=== PATIENT | female | born 1950 | race Caucasian/White ===

== ENCOUNTER 2020-10-07 06:40 | Outpatient (REF) | payer MEDICARE, SELFPAY ==
[2020-10-07 11:20] LABS: Hemoglobin 11.5 g/dl (12.0-16.0); Mean Corpuscular HGB Conc 32.9 g/dl (31.0-35.0); Mean Corpuscular Hemoglobin 30.4 pg (27.0-33.0); Mean Corpuscular Volume 92.6 fL (80-98); Mean Platelet Volume 9.3 fL (9.4-12.3); Platelet Count 313 X10*3/uL (160-400); Red Blood Count 3.78 X10*6/uL (4.20-5.50); Red Cell Distribution Width 12.8 % (11.0-16.0)
[2020-10-07 11:48] LABS: Alanine Aminotransferase 18 U/L (0-31); Albumin Level 4.1 g/dL (3.5-5.0); Alkaline Phosphatase 53 U/L (39-117); Anion Gap 9 (12-20); Aspartate Amino Transferase 19 U/L (5-31); Bilirubin Total 0.5 mg/dL (0.0-1.0); Blood Urea Nitrogen 12 mg/dL (9-16); Carbon Dioxide 30 mmol/L (22-29); Chloride 97 mmol/L (96-108); Cholesterol 195 mg/dL; Estimated Glomerular Filt Rate > 60; Glucose Fasting 82 mg/dL (60-99); HDL Cholesterol 87 mg/dL; LDL Cholesterol Calculated 100 mg/dl; Potassium 4.2 mmol/l (3.3-5.1); Sodium 132 mmol/L (135-145); Total Protein 6.3 g/dL (6.5-8.0); Triglycerides 42 mg/dL
[2020-10-07 12:03] LABS: Vitamin D 25-OH Total 39.3 ng/mL (>30)
== END 2020-10-07 06:41 | disposition home or self-care (01) ==
LOC: HO.HMGCLDS 06:40
PROVIDERS: PCP Internal Medicine; Visit Provider Internal Medicine
DX: Z00.00 Encounter for general adult medical examination without abnormal findings (principal); E55.9 Vitamin D deficiency, unspecified; K21.9 Gastro-esophageal reflux disease without esophagitis; K22.70 Barrett's esophagus without dysplasia; M85.80 Other specified disorders of bone density and structure, unspecified site
CPT/HCPCS: 36415; 80053; 80061; 82306; 85027

== ENCOUNTER 2020-10-16 06:48 | Outpatient (REF) | payer MEDICARE, SELFPAY ==
[2020-10-16 11:28] LABS: Anion Gap 10 (12-20); Blood Urea Nitrogen 15 mg/dL (9-16); Calcium 8.5 mg/dL (8.4-10.2); Carbon Dioxide 30 mmol/L (22-29); Chloride 98 mmol/L (96-108); Estimated Glomerular Filt Rate > 60; Glucose Random 76 mg/dL (60-115); Potassium 4.1 mmol/l (3.3-5.1); Sodium 134 mmol/L (135-145)
[2020-10-16 11:53] LABS: TSH reflex Free T4 1.54 mIU/mL (0.32-4.0)
== END 2020-10-16 06:49 | disposition home or self-care (01) ==
LOC: HO.HMGCLDS 06:48
PROVIDERS: PCP Internal Medicine; Visit Provider Internal Medicine
DX: E87.1 Hypo-osmolality and hyponatremia (principal)
CPT/HCPCS: 80048; 84443

== ENCOUNTER 2020-11-23 08:08 | Day surgery (SDC) | payer MEDICARE, SELFPAY ==
[2020-11-11 09:28] VITALS: BMI 20.3
--- NOTE | 2020-11-16 14:02 | HO.ANESPROP2 ---
Documented by User: Nelly Byrne 11/16/20 14:04 HPI - Anesthesia Eval Consult details Narrative: 70yo F for Upper Endoscopy s/p colonoscopy with MAC 04/2020 [facility] Past Medical History Medical History (Updated 11/16/20 @ 14:04 by Nelly Byrne) Andrade's esophagus GERD (gastroesophageal reflux disease) Hx of mitral valve prolapse Hyponatremia Murmur Osteoarthritis Osteopenia Seasonal allergies Surgical History Surgical History History of esophagogastroduodenoscopy (EGD) History of right hip replacement Hx of colonoscopy Social History Social History Alcohol intake: never Smoking Status: Never smoker Advance Directives: No Advance Directives Information Provided: No Advance Directives on File: No Meds Allergies Allergy/AdvReac Type Severity Reaction Status Date / Time No Known Allergies Allergy Verified 11/11/20 09:25 Home Medications Medication Instructions Recorded Confirmed Type Bifidobacterium infantis [Align] 4 mg PO DAILY 11/11/20 11/11/20 History calcium carbonate [Calcium 600] 1,200 mg PO DAILY 11/11/20 11/11/20 History magnesium 250 mg PO DAILY 11/11/20 11/11/20 History ooonsqdeflhd-puuf-cvtsp acid 1 tab PO DAILY 11/11/20 11/11/20 History [Centrum Women] Exam Exam Date and Time: November 16, 2020 1402 Height,Weight and Vital Signs: Height 5 ft 7 in Weight 58.967 kg Pertinent Lab Results Pertinent Lab Results: Laboratory Tests 10/07/20 10/16/20 06:53 06:59 WBC 6.0 Hgb 11.5 L Hct 35.0 L Plt Count 313 Sodium 134 L Potassium 4.1 Chloride 98 Carbon Dioxide 30 H BUN 15 Creatinine 0.71 Assessment and Plan Assessment Anesthesia Assessment: Chart Reviewed Documented by User: Wanda Cortez 11/23/20 08:39 [facility] Past Medical History Medical History (Updated 11/16/20 @ 14:04 by Nelly Byrne) Andrade's esophagus GERD (gastroesophageal reflux disease) Hx of mitral valve prolapse Hyponatremia Murmur Osteoarthritis Osteopenia Seasonal allergies Surgical History Surgical History History of esophagogastroduodenoscopy (EGD) History of right hip replacement Hx of colonoscopy Social History Social History Alcohol intake: never Smoking Status: Never smoker Advance Directives: No Advance Directives Information Provided: No Advance Directives on File: No Meds Allergies Allergy/AdvReac Type Severity Reaction Status Date / Time No Known Allergies Allergy Verified 11/11/20 09:25 Home Medications Medication Instructions Recorded Confirmed Type Bifidobacterium infantis [Align] 4 mg PO DAILY 11/11/20 11/11/20 History calcium carbonate [Calcium 600] 1,200 mg PO DAILY 11/11/20 11/11/20 History magnesium 250 mg PO DAILY 11/11/20 11/11/20 History upygsdjhsgdv-vsmg-enrgb acid 1 tab PO DAILY 11/11/20 11/11/20 History [Centrum Women] Exam Airway Mallampati Class: I TM Dist: >3cm Neck ROM: Full Loose/Missing/Broken Teeth: No Heart: RRR Lungs: CTA Assessment and Plan Assessment Anesthesia Assessment: Anesthesia Plan Discussed and Chart Reviewed Final Anesthetic Review NPO: Yes ASA Class: II Final Preanesthetic Review: Meds/Allgs Chart Reviewed, Consent Obtained/Reviewed and Anes Risks/Benef Reviewed Patient Risk: Low Procedure Risk: Intermediate Anesthetic Plan Anesthetic Plan: MAC: Disposition: Standard PACU
[2020-11-23 08:36] VITALS: BP 136/53; PULSE 65; RESP 16; TEMP 36.6; O2SAT 100; BMI 20.3
--- NOTE | 2020-11-23 08:56 | MHC.SHP ---
Pre-Procedural Eval Section B Chief Complaint: Gerd, HX Tubular Adenoma Relevant Social History: None Present Medications: see Short Stay Collaborative assessment Medical History: Significant History (Andrade's esophagus GERD (gastroesophageal reflux disease) Hx of mitral valve prolapse Hyponatremia Murmur Osteoarthritis Osteopenia Seasonal allergies) History of Previous Operations: Relevant previous surgery/procedure and date(s) (hip replacement) Allergies: Allergies Allergy/AdvReac Type Severity Reaction Status Date / Time No Known Allergies Allergy Verified 11/11/20 09:25 Review of Systems Sugical H&P ROS: Negative: Constitution, Cardiovascular, Respiratory, Neurological, Psychiatric, Hem-Onc, Allergic/Immunologic, Gastrointestinal, Genitourinary, Musculoskeletal, Integumentary, Endocrine and Eyes/Ears/Nose/Throat Exam Surgical H&P Exam: Normal: HEENT, Normal: Heart, Normal: Lungs, Normal: Extremities, Normal: Abdomen, Normal: Skin and Normal: Neurological Plan Diagnosis/Plan: Unchanged I have reviewed the history and physical and performed a pertinent physical examination on my patient. No changes have occurred unless specified.
--- NOTE | 2020-11-23 09:51 | P.BOP_ITS ---
Brief Operative Note Date of Service: 11/23/20 Pre-op diagnosis: GERD Post-op diagnosis: same Procedure: seProcedure Description: EGD FLEXIBLE TRANSORAL UPPER GASTROINTESTINAL ENDOSCOPY UPPER ENDOSCOPY Consent: Indications for the procedure and potential complications of bleeding, perforation, reaction to medications and missed diagnosis were discussed with the patient and informed consent was obtained. Instrument: Olympus GIF H 190 J mid size upper endoscope Monitoring: Vital signs and clinical assessment, continuous EKG monitoring, Pulse oximetry, Carbon Dioxide monitoring and blood pressure monitoring were done throughout the procedure. Procedure: The patient was placed in the left lateral decubitis position and pre-procedure medications were administered and a bite block was placed. The endoscope was inserted into the mouth and advanced under direct vision to the third part of duodenum. A careful inspection was made as the upper endoscope was withdrawn including a retroflexed examination of the proximal stomach; Findings and interventions are described below. Findings: Larynx:normal Esophagus: GE junction at 38 cm, diaphragm hiatus at 38 cm, no varices or eso phagitis. Possible short segment barretts, bx taken Stomach: Normal mucosa. Grade 2 flap valve on retroflexed examination of the cardia. Duodenum: Normal bulb and descending duodenum, Intervention: Biopsies as noted above Impression/Findings: possible barretts, no esophagitis seen PLAN: can cut down PPi to OD await path Surgeon: Bry Stuart MD Anesthesia: MAC Estimated blood loss (mL): 0 Condition: stable Disposition: PACU
[2020-11-23 09:57] VITALS: BP 117/50; PULSE 69; RESP 18; TEMP 36.5; O2SAT 100
[2020-11-23 10:12] VITALS: BP 127/58; PULSE 60; RESP 18; TEMP 36.5; O2SAT 99
--- NOTE | 2020-11-23 10:40 | HO.POSTANES ---
Post Anesthesia Evaluation Post Anesthesia Evaluation Vital Signs: Vital Signs Temp Pulse Resp BP Pulse Ox 11/23/20 10:12 97.7 F 60 18 127/58 L 99 11/23/20 09:57 97.7 F 69 18 117/50 L 100 11/23/20 08:36 97.9 F 65 16 136/53 L 100 Anesthesia: Monitored Mental Status: Awake Pain Control: Satisfactory Nausea/Vomiting: None Hydration: Adequate Anesthesia-Related Issues: No Anes. Related Issues
== END 2020-11-23 10:36 | disposition home or self-care (01) ==
PROVIDERS: PCP Internal Medicine; Visit Provider Internal Medicine Gastroenterology
PROC: 0DJ08ZZ Inspection of Upper Intestinal Tract, Via Natural or Artificial Opening Endoscopic (ICD-10-PCS; CPT 43235; principal; 2020-11-23 09:20)
DX: K21.9 Gastro-esophageal reflux disease without esophagitis (principal); K44.9 Diaphragmatic hernia without obstruction or gangrene; Z87.19 Personal history of other diseases of the digestive system; Z96.641 Presence of right artificial hip joint; Z79.899 Other long term (current) drug therapy
CPT/HCPCS: 43239; 88305

== ENCOUNTER 2020-12-24 08:45 | Outpatient (REF) | payer MEDICARE, SELFPAY ==
[2020-12-24 11:51] LABS: Anion Gap 13 (12-20); Blood Urea Nitrogen 14 mg/dL (9-16); Calcium 8.7 mg/dL (8.4-10.2); Carbon Dioxide 27 mmol/L (22-29); Chloride 97 mmol/L (96-108); Estimated Glomerular Filt Rate > 60; Glucose Random 72 mg/dL (60-115); Magnesium 2.1 mg/dL (1.6-2.6); Potassium 4.1 mmol/L (3.3-5.1); Sodium 133 mmol/L (135-145)
[2020-12-24 12:18] LABS: Vitamin B12 566 pg/mL (200-900)
== END 2020-12-24 08:46 | disposition home or self-care (01) ==
LOC: HO.HMGCLDS 08:45
PROVIDERS: PCP Internal Medicine; Visit Provider Internal Medicine
DX: E87.1 Hypo-osmolality and hyponatremia (principal); R25.1 Tremor, unspecified
CPT/HCPCS: 36415; 80048; 82607; 82746; 83735; 84443

== ENCOUNTER 2021-01-06 10:47 | Outpatient (REF) | payer MEDICARE, SELFPAY ==
[2021-01-06 14:41] LABS: Anion Gap 10 (12-20); Blood Urea Nitrogen 16 mg/dL (9-16); Calcium 8.8 mg/dL (8.4-10.2); Carbon Dioxide 29 mmol/L (22-29); Chloride 98 mmol/L (96-108); Estimated Glomerular Filt Rate > 60; Glucose Random 77 mg/dL (60-115); Potassium 4.4 mmol/L (3.3-5.1); Sodium 133 mmol/L (135-145)
== END 2021-01-06 10:48 | disposition home or self-care (01) ==
LOC: HO.HMGCLDS 10:47
PROVIDERS: PCP Internal Medicine; Visit Provider Internal Medicine
DX: E87.1 Hypo-osmolality and hyponatremia (principal)
CPT/HCPCS: 36415; 80048

== ENCOUNTER 2021-01-13 09:11 | Outpatient (REF) | payer MEDICARE, SELFPAY ==
--- NOTE | ~2021-01-13 | MM_ITS ---
EXAMINATION: MM SCREENING DIGITAL BREAST TOMOSYNTHESIS, BILATERAL CLINICAL INFORMATION: Screening. Asymptomatic. Prior benign left breast surgery 2001 and 1997. The lifetime risk of breast cancer based on the Tyrer-Cuzick Model is 6%. COMPARISON: Mammography: 01/07/2020, outside mammography 01/04/2019 ([place], [place]) and 10/30/2017 ([place], [place]). TECHNIQUE: Digital breast tomosynthesis is performed in both the craniocaudal and mediolateral oblique views along with computer-aided detection (CAD). Synthesized 2D images are generated from the tomosynthesis. FINDINGS: There are scattered areas of fibroglandular density (ACR BI-RADS breast composition Category b). Parenchymal pattern is similar to prior studies. The left breast has biopsy clip marker upper outer quadrant with some stable regional punctate calcifications. There is some subtle scarring anterior 12:00 left breast, scar marker present upper left breast on outside mammography 2017. There is stable to decreased nodularity central right breast. Neither breast shows interval mass or architectural abnormality or abnormal calcifications. The axilla and skin contours are unremarkable. No significant changes. MM/MM tomosynthesis screening BI IMPRESSION: No significant changes from prior studies. ASSESSMENT: BI-RADS 2: Benign RECOMMENDATION: Routine annual mammography screening. This patient's information was entered into a reminder system with a target due date for their next mammogram.
== END 2021-01-13 09:12 | disposition home or self-care (01) ==
LOC: HO.MAMMO 09:11
PROVIDERS: PCP Internal Medicine; Visit Provider Internal Medicine
DX: Z12.31 Encounter for screening mammogram for malignant neoplasm of breast (principal)
CPT/HCPCS: 77063; 77067

== ENCOUNTER → 2021-01-18 10:14 | Outpatient (BNVA) | payer MEDICARE, SELFPAY | PROVIDERS: PCP Internal Medicine; Visit Provider Internal Medicine Gastroenterology | DX: Z13.89 Encounter for screening for other disorder (principal) | CPT/HCPCS: Q3014 ==

== ENCOUNTER 2021-01-19 07:25 | Outpatient (REF) | payer MEDICARE, SELFPAY ==
[2021-01-19 11:18] LABS: MANUAL DIFF FLAG NO
[2021-01-19 11:40] LABS: Basophils Absolute Auto 0.1 X10*3/uL (0.0-0.2); Basophils Percent Auto 0.8 % (0-2); Eosinophils Absolute Auto 0.1 X10*3/uL (0.0-0.4); Eosinophils Percent Auto 2.3 % (0-4); Hematocrit 38.2 % (37-47); Hemoglobin 12.3 g/dl (12.0-16.0); Imm Gran Abs Auto 0.02 X10*3/uL (0.00-0.03); Imm Gran Pct Auto 0.3 % (0.0-0.4); Lymphocytes Absolute Auto 1.8 X10*3/uL (1.2-4.9); Lymphocytes Percent Auto 29.6 % (20-40); Mean Corpuscular HGB Conc 32.2 g/dl (31.0-35.0); Mean Corpuscular Hemoglobin 30.2 pg (27.0-33.0); Mean Corpuscular Volume 93.9 fL (80-98); Mean Platelet Volume 9.4 fL (9.4-12.3); Monocytes Absolute Auto 0.6 X10*3/uL (0.1-1.2); Monocytes Percent Auto 9.2 % (2-11); Neutrophils Absolute Auto 3.6 X10*3/uL (2.0-8.3); Neutrophils Percent Auto 57.8 % (45-73); Platelet Count 302 X10*3/uL (160-400); Red Blood Count 4.07 X10*6/uL (4.20-5.50); Red Cell Distribution Width 12.5 % (11.0-16.0); White Blood Count 6.2 X10*3/uL (4.8-10.8)
[2021-01-19 12:10] LABS: Ferritin 23 ng/mL (10-250)
[2021-01-19 12:30] LABS: Folate 14.1 ng/mL (> or = 4.0); Vitamin B12 571 pg/mL (200-900)
== END 2021-01-19 07:26 | disposition home or self-care (01) ==
LOC: HO.HMGCLDS 07:25
PROVIDERS: PCP Internal Medicine; Visit Provider Internal Medicine Gastroenterology
DX: D64.9 Anemia, unspecified (principal)
CPT/HCPCS: 36415; 82607; 82728; 82746; 85025

== ENCOUNTER 2021-01-25 13:13 | Outpatient (REF) | payer MEDICARE, SELFPAY ==
--- NOTE | ~2021-01-25 | XR_ITS ---
EXAMINATION: XR HAND, LEFT XR HAND, RIGHT CLINICAL INFORMATION: Pain. COMPARISON: None TECHNIQUE: 3 views of each hand FINDINGS: Left hand: No fracture or dislocation. There is joint space narrowing at the first interphalangeal joint with osteophyte formation. Additional narrowing at the second, third, and fourth distal interphalangeal joints with osteophyte formation. Small osteophytes at the third digit proximal interphalangeal joint. Soft tissue calcifications are present adjacent to the distal aspect of the third digit proximal phalanx and first digit proximal phalanx. Degenerative change of the first carpal metacarpal joint with narrowing, sclerosis, and osteophyte formation. Fragmented appearance of the third digit distal phalanx tuft. No osseous erosions. Right hand: No fracture or dislocation. Narrowing with osteophyte formation at the second and third digit distal interphalangeal joints. Additional osteophytes throughout the remaining interphalangeal joints. There is severe arthritic change at the first carpometacarpal joint with narrowing, sclerosis, and prominent osteophytes. No osseous erosions. The soft tissues are unremarkable. XR/XR hand RT min 3V IMPRESSION: Advanced arthritic changes in both hands as detailed above.
--- NOTE | ~2021-01-25 | XR_ITS ---
EXAMINATION: XR HAND, LEFT XR HAND, RIGHT CLINICAL INFORMATION: Pain. COMPARISON: None TECHNIQUE: 3 views of each hand FINDINGS: Left hand: No fracture or dislocation. There is joint space narrowing at the first interphalangeal joint with osteophyte formation. Additional narrowing at the second, third, and fourth distal interphalangeal joints with osteophyte formation. Small osteophytes at the third digit proximal interphalangeal joint. Soft tissue calcifications are present adjacent to the distal aspect of the third digit proximal phalanx and first digit proximal phalanx. Degenerative change of the first carpal metacarpal joint with narrowing, sclerosis, and osteophyte formation. Fragmented appearance of the third digit distal phalanx tuft. No osseous erosions. Right hand: No fracture or dislocation. Narrowing with osteophyte formation at the second and third digit distal interphalangeal joints. Additional osteophytes throughout the remaining interphalangeal joints. There is severe arthritic change at the first carpometacarpal joint with narrowing, sclerosis, and prominent osteophytes. No osseous erosions. The soft tissues are unremarkable. XR/XR hand LT min 3V IMPRESSION: Advanced arthritic changes in both hands as detailed above.
== END 2021-01-25 13:14 | disposition home or self-care (01) ==
LOC: HO.HOSX 13:13
PROVIDERS: PCP Internal Medicine; Visit Provider Orthopaedic Surgery
DX: M18.0 Bilateral primary osteoarthritis of first carpometacarpal joints (principal)
CPT/HCPCS: 20600; 73130; 99202; J1020

== ENCOUNTER 2021-02-22 08:52 | Outpatient (REF) | payer MEDICARE, SELFPAY ==
--- NOTE | ~2021-02-22 | XR_ITS ---
EXAMINATION: XR KNEE, RIGHT CLINICAL INFORMATION: Right knee pain. COMPARISON: None TECHNIQUE: Four views of the right knee. FINDINGS: Mild lateral compartment joint space narrowing. Tricompartmental marginal osteophytes. No osseous erosion. No fracture or dislocation. No abnormal soft tissue calcification. Trace joint effusion. XR/XR knee RT 4V IMPRESSION: [id number]-[id number] tricompartmental osteoarthritis and trace joint effusion.
== END 2021-02-22 08:53 | disposition home or self-care (01) ==
LOC: HO.HMGCX 08:52
PROVIDERS: Visit Provider Hospitalist
DX: M25.561 Pain in right knee (principal)
CPT/HCPCS: 73564

== ENCOUNTER 2021-03-01 08:10 | Outpatient (REF) | payer MEDICARE, SELFPAY ==
--- NOTE | ~2021-03-01 | XR_ITS ---
EXAMINATION: AP BILATERAL KNEE AND RIGHT KNEE 2 VIEWS. CLINICAL INFORMATION: Pain. COMPARISON: None TECHNIQUE: AP bilateral knee and right knee 2 views. FINDINGS: AP BILATERAL KNEE: There is mild reduction in medial and lateral compartment joint space both knees with periapical spurring lateral compartment both knees. There is general valgus deformity of both knees. RIGHT KNEE: There is loss of patellofemoral compartment joint space with no bony erosive changes or loose bodies. No abnormal joint effusion seen. The soft tissues are normal. XR/XR knee RT 2V IMPRESSION: Mild degenerative changes medial and lateral compartment both knees with periarticular spurring in the lateral compartment. No visible acute fracture, dislocation or lytic process seen.
--- NOTE | ~2021-03-01 | XR_ITS ---
EXAMINATION: AP BILATERAL KNEE AND RIGHT KNEE 2 VIEWS. CLINICAL INFORMATION: Pain. COMPARISON: None TECHNIQUE: AP bilateral knee and right knee 2 views. FINDINGS: AP BILATERAL KNEE: There is mild reduction in medial and lateral compartment joint space both knees with periapical spurring lateral compartment both knees. There is general valgus deformity of both knees. RIGHT KNEE: There is loss of patellofemoral compartment joint space with no bony erosive changes or loose bodies. No abnormal joint effusion seen. The soft tissues are normal. XR/XR knee standing BI IMPRESSION: Mild degenerative changes medial and lateral compartment both knees with periarticular spurring in the lateral compartment. No visible acute fracture, dislocation or lytic process seen.
== END 2021-03-01 08:11 | disposition home or self-care (01) ==
LOC: HO.HOSX 08:10
PROVIDERS: Visit Provider Orthopaedic Surgery
DX: M17.11 Unilateral primary osteoarthritis, right knee (principal)
CPT/HCPCS: 20610; 73560; 73565; 99202

== ENCOUNTER 2021-05-18 07:52 | Outpatient (REF) | payer MEDICARE, SELFPAY ==
[2021-05-18 09:17] LABS: MANUAL DIFF FLAG NO
[2021-05-18 09:23] LABS: Basophils Absolute Auto 0.1 X10*3/uL (0.0-0.2); Basophils Percent Auto 1.2 % (0-2); Eosinophils Absolute Auto 0.1 X10*3/uL (0.0-0.4); Eosinophils Percent Auto 1.9 % (0-4); Hematocrit 34.9 % (37-47); Hemoglobin 11.4 g/dl (12.0-16.0); Imm Gran Abs Auto 0.02 X10*3/uL (0.00-0.03); Imm Gran Pct Auto 0.4 % (0.0-0.4); Lymphocytes Absolute Auto 1.6 X10*3/uL (1.2-4.9); Mean Corpuscular HGB Conc 32.7 g/dl (31.0-35.0); Mean Corpuscular Hemoglobin 29.8 pg (27.0-33.0); Mean Corpuscular Volume 91.4 fL (80-98); Monocytes Absolute Auto 0.6 X10*3/uL (0.1-1.2); Monocytes Percent Auto 12.1 % (2-11); Neutrophils Absolute Auto 2.8 X10*3/uL (2.0-8.3); Neutrophils Percent Auto 54.4 % (45-73); Platelet Count 250 X10*3/uL (160-400); Red Blood Count 3.82 X10*6/uL (4.20-5.50); Red Cell Distribution Width 12.7 % (11.0-16.0); White Blood Count 5.2 X10*3/uL (4.8-10.8)
[2021-05-18 09:48] LABS: Alanine Aminotransferase 16 U/L (0-31); Albumin Level 4.2 g/dL (3.5-5.0); Alkaline Phosphatase 57 U/L (39-117); Anion Gap 12 (12-20); Aspartate Amino Transferase 19 U/L (5-31); Bilirubin Total 0.3 mg/dL (0.0-1.0); Blood Urea Nitrogen 13 mg/dL (9-16); C Reactive Protein 0.02 mg/dL (< or = 0.50); Calcium 9.5 mg/dL (8.4-10.2); Carbon Dioxide 28 mmol/L (22-29); Chloride 102 mmol/L (96-108); Estimated Glomerular Filt Rate > 60; Glucose Random 72 mg/dL (60-115); Potassium 4.8 mmol/L (3.3-5.1); Sodium 137 mmol/L (135-145); Total Protein 6.3 g/dL (6.5-8.0)
[2021-05-18 09:59] LABS: Rheumatoid Factor < 15.0 IU/mL (<15.0)
[2021-05-18 10:30] LABS: Erythrocyte Sedimentation Rate 6 MM/HR (0-20)
[2021-05-19 10:23] LABS: Iron 109 mcg/dL (30-160); Percent Iron Saturation 27 % (15-50); Total Iron Binding Capacity 406 mcg/dL (228-428); Unsaturated Iron Binding 297 ug/dL
[2021-05-19 12:27] LABS: Antibody to SS-A Antigen <1.0 NEG AI (<1.0 NEG); Antibody to SS-B Antigen <1.0 NEG AI (<1.0 NEG)
[2021-05-19 14:02] LABS: Anti Nuclear Antibody Screen NEGATIVE (NEGATIVE)
[2021-05-20 22:57] LABS: Cyclic Citrullinated Peptide <16 UNITS
== END 2021-05-18 07:53 | disposition home or self-care (01) ==
LOC: HO.LAB 07:52
PROVIDERS: PCP Internal Medicine; Visit Provider Student in an Organized Health Care Education/Training Program
DX: D64.9 Anemia, unspecified (principal); M19.041 Primary osteoarthritis, right hand; M19.042 Primary osteoarthritis, left hand
CPT/HCPCS: 36415; 80053; 83540; 85025; 85652; 86038; 86039; 86140; 86200; 86235; 86431; 99202

== ENCOUNTER → 2021-06-01 10:12 | Outpatient (BNVA) | payer MEDICARE, SELFPAY | PROVIDERS: PCP Internal Medicine; Referring Provider Internal Medicine; Visit Provider Internal Medicine Gastroenterology | DX: K21.9 Gastro-esophageal reflux disease without esophagitis (principal); D64.9 Anemia, unspecified | CPT/HCPCS: 99212 ==

== ENCOUNTER 2021-06-08 | Outpatient (REF) | payer SELFPAY | END 2021-06-08 00:01 | disposition home or self-care (01) | LOC: HO.HAP | PROVIDERS: Visit Provider Internal Medicine | DX: Z46.1 Encounter for fitting and adjustment of hearing aid (principal); H91.90 Unspecified hearing loss, unspecified ear | CPT/HCPCS: V5011 ==

== ENCOUNTER → 2021-06-08 10:10 | Outpatient (BNVA) | payer MEDICARE, SELFPAY | PROVIDERS: PCP Internal Medicine; Visit Provider Student in an Organized Health Care Education/Training Program | DX: M19.049 Primary osteoarthritis, unspecified hand (principal) | CPT/HCPCS: 99212 ==

== ENCOUNTER 2021-06-08 12:54 | Outpatient (REF) | payer MEDICARE, SELFPAY ==
--- NOTE | 2021-06-08 13:48 | MHC.AU.ANH ---
Adult Audiological Evaluation Date of Visit: 06/08/21 Reason for Appointment: Audiological evaluation to monitor the status of Ms. Gómez's hearing loss. She reports a longstanding history of bilateral hearing loss and notes that she started using hearing aids in 2004. She feels that her hearing is gradually getting worse. Previous Hearing Test Results: Previous followed at [facility] in [place], [place]. Records not available to be reviewed today. 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 Medical History: Medical History: Heart Problems, Measles, Mumps Medical History: Heart valve prolapse, total right hip replacement 10/2018, ACL repair 1995, cyst and bone spur removal from left middle finger 1999, release trigger finger right hand 2014 Allergies: Voltaren gel Medication List: Pantoprazole 40 mg, Centrum women's silver 50, Total calcium 1500 mg, Magnesium 250 mg, Align probiotic, Thera tears eye nutrition capsules 1200 mg omega-3, simethicone 125 mg PRN Hearing Instrument History- 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[employer] Model: Nera 2 Pro FS ITE Serial Number: [id number] Battery Size: 13 Repair Warranty: 02/01/2019 Loss and Damage Warranty: 02/01/2019 Dispensed By: [place], [place] Date of Fitting: Purchase date per [employer]: 12/23/2016 Hearing Instrument History- Left Ear: 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[employer] Model: Nera 2 Pro FS ITE Serial Number: [id number] Battery Size: Warranty: 02/01/2019 Loss and Damage Warranty: 02/01/2019 Dispensed By: [place], [place] Date of Fitting: Purchase date per [employer]: 12/23/2016 Otoscopy: Right Ear: Unremarkable Left Ear: Unremarkable Tympanometry: Tympanometry performed due to: To assess integrity of the middle ear system Right Ear: Normal Middle Ear System (Type A) Left Ear: Normal Middle Ear System (Type A) Hearing Evaluation: Transducer(s) Used: Insert Earphones, Bone Conduction Method: Conventional Audiometry Stimuli Used: Pure Tones Right Ear: Description of Hearing: Normal hearing from 250-500 Hz, sloping to a mild to severe sensorineural hearing loss from 750-8000 Hz. Left Ear: Description of Hearing: Normal hearing from 250-500 Hz, sloping to a mild to severe sensorineural hearing loss from 750-8000 Hz. Speech Recognition Threshold (SRT): Method Used: Monitored Live Voice Stimuli Used: Spondee Words Right Ear: 30 dBHL Left Ear: 30 dBHL Word Discrimination: Method: Recorded Lists Word Lists Used: NU-6 Right Ear: 84% at 75 dBHL Left Ear: 88% at 75 dBHL Recommendations: Audiological re-evaluation in one year. Patient decided she would like to transfer her hearing aid care to our clinic and paid the transfer of care fee today. Hearing aid programming was saved and hearing aids were reprogrammed to today's audiogram. Hearing aid maintenance was performed. Aids are in good working condition. Diagnosis: Primary Diagnosis: H90.3 Bilateral Sensorineural Hearing Loss Services Performed: Comprehensive Audiological Evaluation (CPT 55634) Tympanometry (CPT 03982) Signature: Provider: Jame Burgess, CCC-A
== END 2021-06-08 12:55 | disposition home or self-care (01) ==
LOC: HO.SH 12:54
PROVIDERS: Visit Provider Internal Medicine
DX: H90.3 Sensorineural hearing loss, bilateral (principal)
CPT/HCPCS: 92557; 92567

== ENCOUNTER 2021-06-29 10:09 | Outpatient (REF) | payer MEDICARE, SELFPAY ==
--- NOTE | ~2021-06-29 | US_ITS ---
EXAMINATION: US EXTRACRANIAL CAROTID DUPLEX, BILATERAL CLINICAL INFORMATION: This is a 71-year-old female with a carotid bruit. COMPARISON: None TECHNIQUE: Real-time ultrasound and Doppler techniques (integrating B-mode 2-D vascular images, Doppler spectral analysis and color-flow Doppler imaging) were utilized to interrogate the extracranial carotid arteries, the vertebral arteries and proximal subclavian arteries bilaterally. The degree of stenosis is determined by criteria similar to NASCET. FINDINGS: Right Side: 1. There is minimal atherosclerotic plaque seen in the bifurcation/proximal ICA region. 2. The common carotid artery PSV proximally is 97 cm/s and distally 97 cm/s. 3. The proximal internal carotid artery velocities are 115 cm/s systolic and 23 cm/s diastolic. 4. The proximal external carotid artery PSV is 87 cm/s. 5. The vertebral artery shows antegrade flow. 6. The subclavian artery waveforms are normal. Left Side: 1. There is minimal atherosclerotic plaque seen in the bifurcation/proximal ICA region. 2. The common carotid artery PSV proximally is 116 cm/s and distally 89 cm/s. 3. The proximal internal carotid artery velocities are 123 cm/s systolic and 26 cm/s diastolic. 4. The proximal external carotid artery PSV is a 5 cm/s. 5. The vertebral artery shows antegrade flow. 6. The subclavian artery waveforms are normal. US/US carotid duplex BI IMPRESSION: 1. RIGHT: Minimal, non-hemodynamically significant stenosis of the proximal right internal carotid artery corresponding to a 0-49% stenosis by velocity criteria. 2. LEFT: Minimal, non-hemodynamically significant stenosis of the proximal left internal carotid artery corresponding to a 0-49% stenosis by velocity criteria.
== END 2021-06-29 10:10 | disposition home or self-care (01) ==
LOC: HO.US 10:09
PROVIDERS: PCP Internal Medicine; Visit Provider Internal Medicine
DX: R09.89 Other specified symptoms and signs involving the circulatory and respiratory systems (principal)
CPT/HCPCS: 93880

== ENCOUNTER 2021-07-15 09:00 | Outpatient (RCR) | payer MEDICARE, SELFPAY | END 2021-08-19 08:48 | disposition home or self-care (01) | LOC: HO.OT 09:00 | PROVIDERS: PCP Internal Medicine; Visit Provider Student in an Organized Health Care Education/Training Program | DX: M19.049 Primary osteoarthritis, unspecified hand (principal) | CPT/HCPCS: 97110; 97166 ==

== ENCOUNTER 2021-09-02 16:33 | Outpatient (REF) | payer MEDICARE, SELFPAY | END 2021-09-02 16:34 | disposition home or self-care (01) | LOC: HO.LNP 16:33 | PROVIDERS: Visit Provider Physician Assistant Medical | DX: Z20.822 Contact with and (suspected) exposure to COVID-19 (principal) | CPT/HCPCS: U0003; U0005 ==

== ENCOUNTER 2021-10-13 08:34 | Outpatient (REF) | payer MEDICARE, SELFPAY ==
--- NOTE | ~2021-10-13 | XR_ITS ---
EXAMINATION: XR HIP, RIGHT CLINICAL INFORMATION: Pain right hip. COMPARISON: None TECHNIQUE: Two views of the right hip. FINDINGS: There is a total right hip prosthesis with prosthetic components in satisfactory alignment. The soft tissues are normal. XR/XR hip RT min 2V IMPRESSION: Total right hip prosthesis in satisfactory alignment. No other bony abnormality seen.
== END 2021-10-13 08:35 | disposition home or self-care (01) ==
LOC: HO.HMGCX 08:34
PROVIDERS: PCP Internal Medicine; Visit Provider Nurse Practitioner Family
DX: M25.551 Pain in right hip (principal); Z96.641 Presence of right artificial hip joint
CPT/HCPCS: 73502

== ENCOUNTER 2021-10-14 19:21 | Emergency (ER) | payer MEDICARE, SELFPAY ==
[2021-10-14 19:22] VITALS: TEMP 36.7; BMI 21.4
[2021-10-14 19:24] VITALS: BP 170/56; PULSE 76; RESP 18; TEMP 36.7; O2SAT 97; BMI 21.1
--- NOTE | 2021-10-14 19:50 | ED.WOUNDLAC ---
HPI - Wound/Laceration General Chief Complaint: Wound/Laceration Stated Complaint: Finger lac Time Seen by Provider: 10/14/21 19:30 Source: patient Mode of arrival: ambulatory Limitations: no limitations History of Present Illness HPI narrative: 71-year-old female presenting to the ER with a 1.5 cm laceration to the tip of her right index finger with she sustained better an hour and a half ago while cleaning the dishes after Thanksgiving dinner. 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 She had immediate bleeding and pain. She attempted a apply direct pressure however she states bleeding persisted. Wound does not involve the nail or nail bed. She is not on any anticoagulation or blood thinners. She is able to fully bend and extend the finger. She has no numbness or tingling. Onset (ago): hour(s) (1.5) Extremity Location: right: hand (Index finger) Place: home Patient tetanus UTD: No (Unsure) Context: accidental Associated symptoms: other (Bleeding) Related Data Home Medications Medication Instructions Recorded Confirmed Bifidobacterium infantis 4 mg 4 mg PO DAILY 11/11/20 06/11/21 capsule (Align) magnesium 250 mg tablet 250 mg PO DAILY 11/11/20 06/11/21 multivitamin-ferrous 1 tab PO DAILY 11/11/20 06/11/21 fumarate-folic acid 18 mg-400 mcg tablet (Centrum Women) flu vacc 2019-(65yr 0.5 ml IM DIRECTED 12/24/20 06/11/21 up)-MF59C(PF) 60 mcg(15 mcgx4)/0.5 mL IM syringe cetirizine 10 mg tablet (Zyrtec) 10 mg PO DAILY PRN 02/22/21 06/11/21 acetaminophen 500 mg tablet 500 mg PO Q6H PRN 05/18/21 06/11/21 (Tylenol Extra Strength) calcium carbonate 600 mg calcium 1,500 mg PO DAILY tab 06/01/21 06/11/21 (1,500 mg) tablet (Calcium) Previous Rx's Medication Instructions Recorded simethicone 125 mg chewable tablet 125 mg PO TID PRN #90 tab 06/01/21 (Gas Relief (simethicone)) miscellaneous medical supply 2 ea MISCELLANEOUS DAILY #2 ea 07/06/21 pantoprazole 40 mg tablet,delayed 40 mg PO DAILY 30 Days #30 tab 09/10/21 release Allergies Allergy/AdvReac Type Severity Reaction Status Date / Time diclofenac [From Voltaren] Allergy Severe Hives Verified 10/14/21 19:22 Review of Systems Review of Systems: Constitutional: No Fever, No Chills Cardiovascular: No Chest Pain, No SOB Gastrointestinal: No Nausea, No Vomiting Musculoskeletal: No joint pain Skin: + Skin Lesions, No rash Neuro: No Weakness, No Numbness Psych: No Anxiety/Panic Heme/Lymph: No Bruising, No Lymphadenopathy PMFSH Past Medical History Medical History Annual physical exam Andrade's esophagus Carotid artery bruit Cerumen impaction GERD (gastroesophageal reflux disease) Hearing loss Hx of mitral valve prolapse Hyponatremia Murmur Osteoarthritis Osteoarthritis, hand Osteopenia Seasonal allergies Skin nodule Tremor Trigger finger of right hand Vitamin D deficiency Surgical History History of esophagogastroduodenoscopy (EGD) History of right hip replacement Hx of colonoscopy Family History Family History Father CHF (congestive heart failure) HTN (hypertension) Mother Rectal bleeding Maternal Grandfather Colon cancer Daughter Mental health disorder Bipolar 1 disorder Brother Substance use disorder Alcoholic Social History Social History Household Members: None Housing: Condominium Alcohol intake: former Patient Tobacco Use Status: Never used Tobacco e-Cigarette/Vaping Use: Never Used Second Hand Smoke Exposure: No Advance Directives: No Advance Directives Information Provided: Yes service: No Current occupational status: employed and retired 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 Oriented X3. No acute distress. HEENT: normal inspection CVS: Normal heart rate and rhythm. Pulses normal. Respiratory: No respiratory distress. Skin: Skin warm and dry. Normal skin color. Normal skin turgor. No rashes. Extremities: Right index finger with a superficial 1.5 cm laceration to the distal tip of the pulp of the finger, does not involve the nail at the nail bed. Active losing that resolved with direct pressure. Normal range of motion and sensation of the finger. Neuro: Oriented X 3. No motor deficit. No sensory deficit. Course Course Course Narrative: 71-year-old female presenting to the ER with a superficial laceration to the right index finger sustained by a kitchen knife just prior to arrival. She cleaned it with alcohol prior to coming in. He is unsure when her last tetanus shot was. Bleeding was controlled with direct pressure. Skin glue was used to close the wound with good effect. Patient counseled on management. She is stable for discharge home. Procedures Laceration Laceration 1: Site: hand (Index finger) Side (If applicable): right Size (cm): 1.5 Description: linear Pre-repair: irrigated extensively and deep structures intact Skin layer closed with: other (Dermabond) Critical Care Time Critical Care Time Critical Care Time: No Discharge Plan Discharge Clinical Impression: Finger laceration Qualifiers: Encounter type: initial encounter Finger: index finger Damage to nail status: without damage Foreign body presence: without foreign body Laterality: right Qualified Code(s): S61.210A - Laceration without foreign body of right index finger without damage to nail, initial encounter Patient Disposition: Home, Self-Care Instructions: Finger Laceration (ED) Additional Instructions: Skin glue was used to close your wound today. This will fall off on its own, usually within 1 week. Do not peel it off. Do not get your finger wet for 24 hours, after this you may briefly wash and then pat dry. If you experience throbbing or pain recommend elevating above the level of your heart and taking a dose of Motrin and Tylenol. If you develop recurrent bleeding or any signs of infection call your doctor come back to emergency room for further evaluation. Prescriptions: No Action miscellaneous medical supply Misc 2 ea miscellaneous DAILY Qty: 2 RF: 0 pantoprazole 40 mg tablet,delayed release (DR/EC) 40 mg PO DAILY 30 Days Qty: 30 RF: 4 magnesium 250 mg Tablet 250 mg PO DAILY RF: 0 Align 4 mg Capsule 4 mg PO DAILY RF: 0 Centrum Women 18-400 mg-mcg Tablet 1 tab PO DAILY RF: 0 calcium carbonate [Calcium 600] 600 mg calcium (1,500 mg) tablet 1,500 mg PO DAILY RF: 0 cetirizine [Zyrtec] 10 mg tablet 10 mg PO DAILY PRNRF: 0 Fluad Quad 2019-(65y up)(PF) 60 mcg (15 mcg x 4)/0.5 mL syringe 0.5 ml IM DIRECTED RF: 0 simethicone [Gas Relief (simethicone)] 125 mg tablet,chewable 125 mg PO TID PRN (Reason: abdominal distention) Qty: 90 RF: 2 acetaminophen [Tylenol Extra Strength] 500 mg tablet 500 mg PO Q6H PRNRF: 0
[2021-10-14] MEDS: Diphth,Pertus(ACell),Tet Adult 0.5 ML SYRINGE IM (20:03)
== END 2021-10-14 19:58 | disposition home or self-care (01) ==
PROVIDERS: Emergency Provider Student in an Organized Health Care Education/Training Program; PCP Internal Medicine
DX: S61.210A Laceration without foreign body of right index finger without damage to nail, initial encounter (principal); S60.511A Abrasion of right hand, initial encounter; M79.644 Pain in right finger(s); W26.0XXA Contact with knife, initial encounter; Y93.9 Activity, unspecified; Y92.410 Unspecified street and highway as the place of occurrence of the external cause; Y99.9 Unspecified external cause status; Z79.899 Other long term (current) drug therapy
CPT/HCPCS: 90471; 90715; 99284

== ENCOUNTER 2021-11-18 08:04 | Outpatient (REF) | payer MEDICARE, SELFPAY ==
--- NOTE | ~2021-11-18 | MM_ITS ---
EXAMINATION: BONE DENSITOMETRY CLINICAL INDICATION: Other specified disorders of bone density and structure. COMPARISON: Baseline BD dated 11/07/2019. TECHNIQUE: Using a [employer] DXA System (software version: 13.1) manufactured by [employer], dual-energy x-ray absorptiometry was performed of the lumbar spine and left hip. The images are of good technical quality. Summary results are attached. FINDINGS: AP SPINE L1-L2 (excluding L3 and L4): The data of L1-L4 has been changed to exclude the L3 and L4 vertebral bodies, because degenerative changes at these levels may cause overestimation of lumbar spine density. Current: BMD 1.038 g/cm2, Z-score 0.8, T-score -1.1, osteopenia, 1.5% decrease from baseline (<5% change is not significant). Baseline: BMD 1.054 g/cm2. LEFT FEMUR, NECK: Current: BMD 0.635 g/cm2, Z-score -1.0, T-score -2.9, osteoporosis. Baseline: BMD 0.665 g/cm2. LEFT FEMUR, TOTAL: Current: BMD 0.630 g/cm2, Z-score -1.3, T-score -3.0, osteoporosis, 3.8% decrease from baseline (<5% change is not significant). Baseline: BMD 0.655 g/cm2. IDENTIFIED RISK FACTORS: Osteoporosis, menopause. HISTORY OF FRACTURE: None listed. MEDICATIONS: Calcium supplements or multivitamin, vitamin D. MM/XR DEXA axial skeleton IMPRESSION: 1. DIAGNOSIS: Osteoporosis based on the lowest T-score value of -3.0 in the total femur applying World Health Organization criteria. 2. 10-YEAR FRACTURE RISK PREDICTION, FRAX: According to the guidelines, FRAX calculation should only be performed on patients in the osteopenia bone density category. 3. Treatment Recommendations: NOF guidelines recommend consideration for treatment in postmenopausal women and men age 50 and older presenting with the following: -A hip or vertebral (clinical or morphometric) fracture. -T-score less than or equal to -2.5 at the femoral neck or spine after appropriate evaluation to exclude secondary causes. -Low bone mass at the hip or spine and a 10-year fracture probability by FRAX of greater than or equal to 3% for hip fracture or greater than or equal to 20% for major osteoporotic fracture based on the [place] adapted WHO algorithm. 4. Other Recommendations: All treatment decisions require clinical judgment and consideration of individual patient factors, including patient preferences, comorbidities, previous drug use, risk factors not captured in the FRAX model (e.g. frailty, falls, vitamin D deficiency, increased bone turnover, interval significant decline in bone density) and possible under or overestimation of fracture risk by FRAX. Additional medical evaluation for secondary cause of low bone mineral density may be appropriate. FUTURE SCAN RECOMMENDATION: People with diagnosed cases of osteoporosis or at high risk for fracture should have regular bone mineral density tests. For patients eligible for Medicare, routine testing is allowed once every 2 years. The testing frequency can be increased to one year for patients who have rapidly progressing disease, those who are receiving or discontinuing medical therapy to restore bone mass, or have additional risk factors.
== END 2021-11-18 08:05 | disposition home or self-care (01) ==
LOC: HO.MAMMO 08:04
PROVIDERS: Visit Provider Internal Medicine
DX: Z13.820 Encounter for screening for osteoporosis (principal); M85.80 Other specified disorders of bone density and structure, unspecified site; Z78.0 Asymptomatic menopausal state; Z79.899 Other long term (current) drug therapy
CPT/HCPCS: 77080

== ENCOUNTER 2021-12-22 06:33 | Outpatient (REF) | payer MEDICARE, SELFPAY ==
[2021-12-22 11:39] LABS: Hematocrit 35.4 % (37.0-47.0); Hemoglobin 11.5 g/dl (12.0-16.0); Mean Corpuscular HGB Conc 32.5 g/dl (31.0-35.0); Mean Corpuscular Hemoglobin 29.8 pg (27.0-33.0); Mean Corpuscular Volume 91.7 fL (80.0-98.0); Mean Platelet Volume 9.5 fL (9.4-12.3); Platelet Count 269 X10*3/uL (160-400); Red Blood Count 3.86 X10*6/uL (4.20-5.50); Red Cell Distribution Width 12.7 % (11.0-16.0); White Blood Count 5.5 X10*3/uL (4.8-10.8)
[2021-12-22 12:20] LABS: Alanine Aminotransferase 17 U/L (0-31); Albumin Level 4.1 g/dL (3.5-5.0); Alkaline Phosphatase 61 U/L (39-117); Anion Gap 10 (12-20); Aspartate Amino Transferase 17 U/L (5-31); Bilirubin Total 0.4 mg/dL (0.0-1.0); Blood Urea Nitrogen 15 mg/dL (9-16); Calcium 9.3 mg/dL (8.4-10.2); Carbon Dioxide 29 mmol/L (22-29); Chloride 101 mmol/L (96-108); Cholesterol 213 mg/dL; Estimated Glomerular Filt Rate > 60; Glucose Fasting 83 mg/dL (60-99); HDL Cholesterol 90 mg/dL; Iron 101 mcg/dL (30-160); LDL Cholesterol Calculated 113 mg/dl; Percent Iron Saturation 24 % (15-50); Potassium 4.4 mmol/L (3.3-5.1); Sodium 136 mmol/L (135-145); Total Iron Binding Capacity 425 mcg/dL (228-428); Total Protein 6.4 g/dL (6.5-8.0); Triglycerides 50 mg/dL; Unsaturated Iron Binding 324 ug/dL
[2021-12-22 12:22] LABS: TSH reflex Free T4 1.15 uIU/mL (0.32-4.0); Vitamin D 25-OH Total 36.2 ng/mL (>30)
== END 2021-12-22 06:34 | disposition home or self-care (01) ==
LOC: HO.HMGCLDS 06:33
PROVIDERS: Visit Provider Internal Medicine
DX: Z00.00 Encounter for general adult medical examination without abnormal findings (principal); D64.9 Anemia, unspecified; E87.1 Hypo-osmolality and hyponatremia; M85.80 Other specified disorders of bone density and structure, unspecified site; E55.9 Vitamin D deficiency, unspecified
CPT/HCPCS: 36415; 80053; 80061; 82306; 83540; 84443; 85027

== ENCOUNTER → 2021-12-31 10:02 | Outpatient (BNVA) | payer MEDICARE, SELFPAY | PROVIDERS: PCP Internal Medicine; Referring Provider Internal Medicine; Visit Provider Internal Medicine Gastroenterology | DX: K21.9 Gastro-esophageal reflux disease without esophagitis (principal); R07.89 Other chest pain; D64.9 Anemia, unspecified | CPT/HCPCS: 99212 ==

== ENCOUNTER 2022-01-18 08:06 | Outpatient (REF) | payer MEDICARE, SELFPAY ==
--- NOTE | ~2022-01-18 | MM_ITS ---
EXAMINATION: MM SCREENING DIGITAL BREAST TOMOSYNTHESIS, BILATERAL CLINICAL INFORMATION: Screening. Asymptomatic. The lifetime risk of breast cancer based on the Tyrer-Cuzick Model is 3%. COMPARISON: Mammography: 01/13/2021, 01/07/2020, 01/04/2019 TECHNIQUE: Digital breast tomosynthesis is performed in both the craniocaudal and mediolateral oblique views along with computer-aided detection (CAD). Synthesized 2D images are generated from the tomosynthesis. FINDINGS: There are scattered areas of fibroglandular density (ACR BI-RADS breast composition Category b). There are no significant masses, abnormal calcifications, or other abnormalities. Parenchymal pattern is similar to prior studies. Scattered nodular densities central anterior right breast are stable. There is no developing density or architectural abnormality. There is a biopsy clip marker again seen left breast posterior upper outer quadrant with stable punctate and round regional calcifications. The axilla and skin contours are unremarkable. No significant changes. MM/MM tomosynthesis screening BI IMPRESSION: No significant changes from prior studies. ASSESSMENT: BI-RADS 2: Benign RECOMMENDATION: Routine annual mammography screening. This patient's information was entered into a reminder system with a target due date for their next mammogram.
== END 2022-01-18 08:07 | disposition home or self-care (01) ==
LOC: HO.MAMMO 08:06
PROVIDERS: PCP Internal Medicine; Visit Provider Internal Medicine
DX: Z12.31 Encounter for screening mammogram for malignant neoplasm of breast (principal)
CPT/HCPCS: 77063; 77067

== ENCOUNTER → 2022-01-20 10:39 | Outpatient (BNVA) | payer MEDICARE, SELFPAY | PROVIDERS: PCP Internal Medicine; Visit Provider Orthopaedic Surgery | DX: Z47.1 Aftercare following joint replacement surgery (principal); Z96.641 Presence of right artificial hip joint | CPT/HCPCS: 99212 ==

== ENCOUNTER → 2022-02-11 07:25 | Outpatient (REF) | payer MEDICARE, SELFPAY ==
--- NOTE | 2022-02-11 07:29 | CA_ITS ---
Transthoracic Echocardiogram Patient (Last, First, Middle): Philomena Gómez, Gender: Female Date of : 1950 Age: 71 Procedure Date: 02/11/2022 Procedure Type: Transthoracic Echocardiogram Location: OP Height: 170.18 cm Weight: 62.14 kg BSA: 1.72 m2 Heart Rate: bpm BP: 118 / 60 mmHg Learning Consultant: VH/OT Referring MD: Idalmis Kyle MD Symptoms: I35.1 - Nonrheumatic aortic (valve) insufficiency Study Quality: Fair ECG Rhythm: Sinus Conclusions: - Normal left ventricular size and systolic function. There is mildly increased left ventricular wall thickness. The visually estimated ejection fraction is between 60-65%. - E/E prime ratio is <8, consistent with normal filling pressures. - Normal right ventricular cavity size and systolic function. - The left atrium is severely dilated. Findings Left Ventricle Normal left ventricular size and systolic function. There is mildly increased left ventricular wall thickness. The visually estimated ejection fraction is between 60-65%. There is no evidence of regional wall motion abnormalities. Diastolic function is indeterminate on the basis of available data. Spectral Doppler is indicative of an impaired relaxation filling pattern. E/E prime ratio is <8, consistent with normal filling pressures. Right Ventricle Normal right ventricular cavity size and systolic function. Atria The left atrium is severely dilated. Aortic Valve There is a normal trileaflet aortic valve. There is mild calcification of the aortic valve. There is mild thickening of the aortic valve. There is no aortic valve stenosis. There is mild aortic valve regurgitation. Mitral Valve The mitral valve appears normal. There is mild mitral valve regurgitation. There is no mitral valve stenosis. Pulmonic Valve The pulmonic valve is likely normal. There is trace pulmonic valve regurgitation. Tricuspid Valve Normal tricuspid valve structure. There is mild septal tricuspid leaflet thickening. There is trace tricuspid valve regurgitation. Normal right atrial pressure. There is no evidence of pulmonary hypertension. Great Vessels All visible segments of the aorta are normal in size. The visualized portions of the pulmonary artery and branches are normal. Venous The inferior vena cava is normal in size and collapses greater than 50% with inspiration. Pericardium/Pleural There is no evidence of pericardial effusion. Prior Study Comparison No prior study available for comparison. Measurements 2D Linear Measurements IVSd: 1.09 0.6-0.9/0.6-1.0 cm LVIDd: 4.41 3.9-5.3/4.2-5.9 cm LVIDd Index: 2.56 2.4-3.2/2.2-3.1 cm/m2 LVIDs: 2.17 2.0-3.6 cm LVPWd: 1.09 0.7-1.1 cm LA Diam: 3.80 2.7-3.8/3.0-4.0 cm LAIDs Index: 2.21 1.5-2.3 cm/m2 LV Mass: 208.44 67-162/88-224 g LV Mass Index: 121.19 43-95/49-115 g/m2 LVOT Diam: 2.30 3.0+(-)1.3 cm Mitral Valve MV Pk E: 0.57 MV PK A: 0.47 MV Decel Time: 149.00 E/A: 1.20 E'Lateral: 7.83 E'Medial: 7.62 E/E' Med: 7.50 E/E' Lat: 7.30 PHT: 44.00 MVA PHT: 5.00 Decel Manati: 3.85 Aortic Valve AoV Pk Yonas: 1.41 AoV Mn Yonas: 1.40 AoV VTI: 0.53 AoV Pk Grad: 8.00 Aov Mn Grad: 9.00 BRENDA Cont.VTI: 2.06 AI Pk Yonas: 3.11 AI Manati: 1.54 LVOT LVOT Pk Yonas: 0.95 LVOT Mn Yonas: 0.58 LVOT VTI: 0.26 LVOT Pk Grad: 4.00 LVOT Mn Grad: 2.00 LVOT Diam: 2.30 LVOT Area: 4.15 Diastolic Function MV Pk E: 0.57 MV Pk A: 0.47 E/A: 1.20 E'Medial: 7.62 E/E' Med: 7.50 E' Laterial: 7.83 E/E' Lat: 7.30 Right Ventricle TAPSE (mm): 20.00 TVS' Yonas: 11.00 Tricuspid Valve TR Pk Yonas: 2.10 TR Pk Grad: 18.00 RA Press: 3.00 RVSP: 21.00 Great Vessels Aorta Sinus of Valsalva: 2.90 2.0-3.5 cm Ao Asc: 2.80 2.1-3.4 cm Pulmonary Valve PV Pk Yonas: 0.79 Peak PV Grad: 2.00 Updated in Other Vendor System with Status of Final Lino Uriostegui MD electronically signed on 02/13/2022 9:03:31 PM with status of Final
== END ==
LOC: HO.CARD 07:25
PROVIDERS: PCP Internal Medicine; Visit Provider Internal Medicine
DX: I35.1 Nonrheumatic aortic (valve) insufficiency (principal)
CPT/HCPCS: 93306

== ENCOUNTER → 2022-06-06 11:30 | Outpatient (BNVA) | payer MEDICARE, SELFPAY | PROVIDERS: PCP Internal Medicine; Visit Provider Internal Medicine Gastroenterology | DX: D64.9 Anemia, unspecified (principal); K21.9 Gastro-esophageal reflux disease without esophagitis; K31.A0 Gastric intestinal metaplasia, unspecified | CPT/HCPCS: 99212 ==

== ENCOUNTER 2022-08-12 09:51 | Outpatient (REF) | payer MEDICARE, SELFPAY | END 2022-08-12 09:52 | disposition home or self-care (01) | LOC: HO.SH 09:51 | PROVIDERS: Visit Provider Internal Medicine | DX: H90.3 Sensorineural hearing loss, bilateral (principal) | CPT/HCPCS: 92557; 92567 ==

== ENCOUNTER 2022-10-06 09:40 | Day surgery (SDC) | payer MEDICARE, SELFPAY ==
--- NOTE | 2022-10-05 13:56 | P.CONAN_ITS ---
Documented by User: Nelly Byrne NP 10/05/22 13:58 HPI - Anesthesia Eval Consult details Narrative: 72yo F for Upper Endoscopy PMFSH Active Problems Active Problems: All Active Problems (Updated 09/29/22 @ 13:58 by Madiha Hernandez RN) Annual physical exam (Acute) Anemia (Acute) Arthritis of carpometacarpal (CMC) joint of left thumb (Acute) Arthritis of carpometacarpal (CMC) joint of right thumb (Acute) Right knee pain (Acute) Acute sinusitis (Acute) Right hip pain (Acute) Status post total replacement of right hip (Acute) Annual physical exam (Acute) Aortic regurgitation (Acute) Osteoporosis (Acute) Cerumen impaction (Acute) Carotid artery bruit (Acute) GERD (gastroesophageal reflux disease) (Acute) Skin nodule (Acute) Vitamin D deficiency (Acute) Hearing loss (Acute) Osteopenia (Acute) Tremor (Acute) Osteoarthritis, hand (Acute) Hyponatremia (Acute) Past Medical History Medical History Aortic regurgitation Andrade's esophagus Carotid artery bruit Cerumen impaction GERD (gastroesophageal reflux disease) Hearing loss Hx of mitral valve prolapse Hyponatremia Murmur Osteoarthritis Osteoarthritis, hand Osteopenia Osteoporosis Seasonal allergies Skin nodule Tremor Trigger finger of right hand Vitamin D deficiency Family History Family History Father CHF (congestive heart failure) HTN (hypertension) Mother Rectal bleeding Maternal Grandfather Colon cancer Daughter Mental health disorder Bipolar 1 disorder Brother Substance use disorder Alcoholic Surgical History Surgical History (Updated 09/29/22 @ 14:42 by Madiha Hernandez RN) History of esophagogastroduodenoscopy (EGD) History of right hip replacement Hx of colonoscopy Social History Social History Household Members: None Housing: Condominium Alcohol intake: former Patient Tobacco Use Status: Never used Tobacco e-Cigarette/Vaping Use: Never Used Second Hand Smoke Exposure: No Are you DNR?: No Advance Directives: No Advance Directives Information Provided: Yes service: No Current occupational status: retired Current occupation: [employer] Current occupational exposures/hazards: No Cognitive needs: No Hearing needs: No Vision needs: No Meds Allergies Allergy/AdvReac Type Severity Reaction Status Date / Time diclofenac [From Voltaren] Allergy Severe Hives Verified 09/29/22 14:46 Home Medications Medication Instructions Recorded Confirmed Last Taken Type Bifidobacterium infantis 4 mg 4 mg PO DAILY 11/11/20 09/29/22 Unknown History capsule (Align) magnesium 250 mg tablet 250 mg PO DAILY 11/11/20 09/29/22 Unknown History multivitamin-ferrous 1 tab PO DAILY 11/11/20 09/29/22 Unknown History fumarate-folic acid 18 mg-400 mcg tablet (Centrum Women) cetirizine 10 mg tablet (Zyrtec) 10 mg PO DAILY PRN Allergy Symptoms 02/22/21 09/29/22 Unknown History acetaminophen 500 mg tablet 500 mg PO Q6H PRN Pain 05/18/21 09/29/22 Unknown History (Tylenol Extra Strength) cholecalciferol (vitamin D3) 50 50 mcg PO DAILY 12/31/21 09/29/22 Unknown History mcg (2,000 unit) capsule calcium carbonate 600 mg calcium 700 mg PO DAILY 06/06/22 09/29/22 Unknown History (1,500 mg) tablet (Calcium) Exam Exam Date and Time: October 05, 2022 1356 Narrative Narrative: ECHO 12/2021 Conclusions: - Normal left ventricular size and systolic function. There is ? mildly increased left ventricular wall thickness.? The visually? estimated ejection fraction is between 60-65%. ? - E/E prime ratio is <8, consistent with normal filling? pressures. ? - Normal right ventricular cavity size and systolic function.? ? - The left atrium is severely dilated. ? carotid duplex BI 2020 IMPRESSION: 1. RIGHT: Minimal, non-hemodynamically significant stenosis of the proximal right internal carotid artery corresponding to a 0-49% stenosis by velocity criteria. ? 2. LEFT: Minimal, non-hemodynamically significant stenosis of the proximal left internal carotid artery corresponding to a 0-49% stenosis by velocity criteria. ? Assessment and Plan Assessment Anesthesia Assessment: Chart Reviewed Documented by User: Wanda Cortez MD 10/06/22 10:27 [facility] Past Medical History Medical History Aortic regurgitation Andrade's esophagus Carotid artery bruit Cerumen impaction GERD (gastroesophageal reflux disease) Hearing loss Hx of mitral valve prolapse Hyponatremia Murmur Osteoarthritis Osteoarthritis, hand Osteopenia Osteoporosis Seasonal allergies Skin nodule Tremor Trigger finger of right hand Vitamin D deficiency Family History Family History Father CHF (congestive heart failure) HTN (hypertension) Mother Rectal bleeding Maternal Grandfather Colon cancer Daughter Mental health disorder Bipolar 1 disorder Brother Substance use disorder Alcoholic Surgical History Surgical History (Updated 09/29/22 @ 14:42 by Madiha Hernandez RN) History of esophagogastroduodenoscopy (EGD) History of right hip replacement Hx of colonoscopy History of Problems with Anesthesia: No Social History Social History Household Members: None Housing: Condominium Alcohol intake: former Patient Tobacco Use Status: Never used Tobacco e-Cigarette/Vaping Use: Never Used Second Hand Smoke Exposure: No Are you DNR?: No Advance Directives: No Advance Directives Information Provided: Yes service: No Current occupational status: 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 Current occupational exposures/hazards: No Cognitive needs: No Hearing needs: No Vision needs: No Meds Allergies Allergy/AdvReac Type Severity Reaction Status Date / Time diclofenac [From Voltaren] Allergy Severe Hives Verified 09/29/22 14:46 Home Medications Medication Instructions Recorded Confirmed Last Taken Type Bifidobacterium infantis 4 mg 4 mg PO DAILY 11/11/20 09/29/22 Unknown History capsule (Align) magnesium 250 mg tablet 250 mg PO DAILY 11/11/20 09/29/22 Unknown History multivitamin-ferrous 1 tab PO DAILY 11/11/20 09/29/22 Unknown History fumarate-folic acid 18 mg-400 mcg tablet (Centrum Women) cetirizine 10 mg tablet (Zyrtec) 10 mg PO DAILY PRN Allergy Symptoms 02/22/21 09/29/22 Unknown History acetaminophen 500 mg tablet 500 mg PO Q6H PRN Pain 05/18/21 09/29/22 Unknown History (Tylenol Extra Strength) cholecalciferol (vitamin D3) 50 50 mcg PO DAILY 12/31/21 09/29/22 Unknown History mcg (2,000 unit) capsule calcium carbonate 600 mg calcium 700 mg PO DAILY 06/06/22 09/29/22 Unknown History (1,500 mg) tablet (Calcium) Exam Airway Mallampati Class: II TM Dist: >3cm Neck ROM: Full Loose/Missing/Broken Teeth: No Heart: RRR Lungs: CTA Assessment and Plan Assessment Anesthesia Assessment: Anesthesia Plan Discussed Final Anesthetic Review History of Problems with Anesthesia: No NPO: Yes ASA Class: III Final Preanesthetic Review: Meds/Allgs Chart Reviewed, Consent Obtained/Reviewed and Anes Risks/Benef Reviewed Patient Risk: Intermediate Procedure Risk: Intermediate Anesthetic Plan Anesthetic Plan: MAC: Disposition: Standard PACU
[2022-10-06 09:16] VITALS: BMI 21.6
[2022-10-06 09:56] VITALS: BP 133/43; PULSE 64; RESP 17; TEMP 36.6; O2SAT 98
[2022-10-06] MEDS: Lactated Ringers 1,000 ML 100 ML IVCONT (10:10)
--- NOTE | 2022-10-06 10:15 | MHC.SHP ---
Pre-Procedural Eval Section A Date of Service: 10/06/22 Section B Chief Complaint: gastritis Relevant Family History (Specify if Yes): No Relevant Social History: None Present Medications: see Short Stay Collaborative assessment Medical History: Significant History (Aortic regurgitation Andrade's esophagus Carotid artery bruit Cerumen impaction GERD (gastroesophageal reflux disease) Hearing loss Hx of mitral valve prolapse Hyponatremia Murmur Osteoarthritis Osteoarthritis, hand Osteopenia Osteoporosis Seasonal allergies Skin nodule Tremor Trigger finger of righ) History of Previous Operations: Relevant previous surgery/procedure and date(s) ( History of esophagogastroduodenoscopy (EGD) History of right hip replacement Hx of colonoscopy) Allergies: Allergies Allergy/AdvReac Type Severity Reaction Status Date / Time diclofenac [From Voltaren] Allergy Severe Hives Verified 09/29/22 14:46 Review of Systems Sugical H&P ROS: Negative: Constitution, Cardiovascular, Respiratory, Neurological, Psychiatric, Hem-Onc, Allergic/Immunologic, Gastrointestinal, Genitourinary, Musculoskeletal, Integumentary, Endocrine and Eyes/Ears/Nose/Throat Exam Surgical H&P Exam: Normal: HEENT, Normal: Heart, Normal: Lungs, Normal: Extremities, Normal: Abdomen, Normal: Skin and Normal: Neurological Plan Diagnosis/Plan: Unchanged I have reviewed the history and physical and performed a pertinent physical examination on my patient. No changes have occurred unless specified.
--- NOTE | 2022-10-06 10:49 | W.PM.OPN ---
Operative Note Operative Note Date of Service: 10/06/22 Narrative: Procedure Description: EGD Indication: [] Anesthesia: MAC FLEXIBLE TRANSORAL UPPER GASTROINTESTINAL ENDOSCOPY UPPER ENDOSCOPY Consent: Indications for the procedure and potential complications of bleeding, perforation, reaction to medications and missed diagnosis were discussed with the patient and informed consent was obtained. Instrument: Olympus GIF H 190 J mid size upper endoscope Monitoring: Vital signs and clinical assessment, continuous EKG monitoring, Pulse oximetry, Carbon Dioxide monitoring and blood pressure monitoring were done throughout the procedure. Procedure: The patient was placed in the left lateral decubitis position and pre-procedure medications were administered and a bite block was placed. The endoscope was inserted into the mouth and advanced under direct vision to the third part of duodenum. A careful inspection was made as the upper endoscope was withdrawn including a retroflexed examination of the proximal stomach; Findings and interventions are described below. Findings: Larynx:normal Esophagus: GE junction at 35 cm, diaphragm hiatus at 37 cm, consistent with 2 cm sliding hiatal hernia, lax LES, bx taken from GEJ Stomach: Patchy gastric erythema, gastric mapping done with bx from antrum body and angularis, fundus. Biopsies were obtained. Grade 3 flap valve on retroflexed examination of the cardia. Duodenum: Normal bulb and descending duodenum, Intervention: Biopsies as noted above Impression/Findings: lax LES hiatal hernia PLAN: await bx cont with PPI for the moment, reflux precautions
[2022-10-06 10:53] VITALS: BP 107/46; PULSE 59; RESP 16; TEMP 36.2; O2SAT 100
[2022-10-06 11:08] VITALS: BP 153/53; PULSE 58; RESP 18; TEMP 36.6; O2SAT 100
== END 2022-10-06 11:36 | disposition home or self-care (01) ==
PROVIDERS: PCP Internal Medicine; Visit Provider Internal Medicine Gastroenterology
PROC: 0DJ08ZZ Inspection of Upper Intestinal Tract, Via Natural or Artificial Opening Endoscopic (ICD-10-PCS; CPT 43235; principal; 2022-10-06 10:50)
DX: K29.50 Unspecified chronic gastritis without bleeding (principal); K22.70 Barrett's esophagus without dysplasia; K22.4 Dyskinesia of esophagus; K44.9 Diaphragmatic hernia without obstruction or gangrene; K21.9 Gastro-esophageal reflux disease without esophagitis; I35.1 Nonrheumatic aortic (valve) insufficiency; Z79.899 Other long term (current) drug therapy; Z88.8 Allergy status to other drugs, medicaments and biological substances; M81.0 Age-related osteoporosis without current pathological fracture
CPT/HCPCS: 43239; 88305; 88342

== ENCOUNTER → 2022-10-28 09:18 | Outpatient (BNVA) | payer MEDICARE, SELFPAY | PROVIDERS: PCP Internal Medicine; Visit Provider Internal Medicine Gastroenterology | DX: K21.9 Gastro-esophageal reflux disease without esophagitis (principal); Z79.899 Other long term (current) drug therapy; Z98.890 Other specified postprocedural states | CPT/HCPCS: 99212 ==

== ENCOUNTER 2022-12-23 06:53 | Outpatient (REF) | payer MEDICARE, SELFPAY ==
[2022-12-23 11:33] LABS: Hematocrit 34.2 % (37.0-47.0); Hemoglobin 11.3 g/dl (12.0-16.0); Mean Corpuscular Hemoglobin 29.7 pg (27.0-33.0); Mean Platelet Volume 9.3 fL (9.4-12.3); Platelet Count 307 X10*3/uL (160-400); Red Cell Distribution Width 12.5 % (11.0-16.0); White Blood Count 5.6 X10*3/uL (4.8-10.8)
[2022-12-23 12:00] LABS: Alanine Aminotransferase 20 U/L (0-31); Albumin Level 4.1 g/dL (3.5-5.0); Alkaline Phosphatase 73 U/L (39-117); Anion Gap 11 (12-20); Aspartate Amino Transferase 18 U/L (5-31); Bilirubin Total 0.6 mg/dL (0.0-1.0); Blood Urea Nitrogen 12 mg/dL (9-16); Calcium 9.3 mg/dL (8.4-10.2); Carbon Dioxide 28 mmol/L (22-29); Chloride 97 mmol/L (96-108); Cholesterol 210 mg/dL; Estimated Glomerular Filt Rate > 60; Glucose Fasting 82 mg/dL (60-99); HDL Cholesterol 83 mg/dL; LDL Cholesterol Calculated 117 mg/dl; Potassium 4.2 mmol/L (3.3-5.1); Sodium 132 mmol/L (135-145); Total Protein 6.2 g/dL (6.5-8.0); Triglycerides 52 mg/dL; Vitamin D 25-OH Total 38.2 ng/mL (>30)
== END 2022-12-23 06:54 | disposition home or self-care (01) ==
LOC: HO.HMGCLDS 06:53
PROVIDERS: PCP Internal Medicine; Visit Provider Internal Medicine
DX: Z00.00 Encounter for general adult medical examination without abnormal findings (principal); M81.0 Age-related osteoporosis without current pathological fracture; E55.9 Vitamin D deficiency, unspecified
CPT/HCPCS: 36415; 80053; 80061; 82306; 85027

== ENCOUNTER 2022-12-28 08:31 | Outpatient (REF) | payer MEDICARE, SELFPAY ==
--- NOTE | ~2022-12-28 | XR_ITS ---
EXAMINATION: XR LUMBOSACRAL SPINE CLINICAL INFORMATION: Sciatica, unspecified side. COMPARISON: None TECHNIQUE: Three views of the lumbosacral spine. FINDINGS: There is mild grade 1 anterolisthesis at L4-5. There is a mild convex left curvature of the lumbar spine. There is advanced bilateral facet arthrosis at the L3-4, L4-5 and L5-S1 levels. There are degenerative disc changes present in the lower dorsal spine manifested by endplate osteophytes with minimal disc space narrowing throughout the partially visualized dorsal region, The partially visualized pelvis including sacroiliac joints are unremarkable except for post surgical changes on the right related to prior right hip arthroplasty. XR/XR lumbar spine 2-3V IMPRESSION: Multilevel spondylosis of the partially visualized dorsal spine and lumbar spine as noted. Grade 1 degenerative anterolisthesis of L4-5.
== END 2022-12-28 08:32 | disposition home or self-care (01) ==
LOC: HO.HMGCX 08:31
PROVIDERS: PCP Internal Medicine; Visit Provider Internal Medicine
DX: M54.30 Sciatica, unspecified side (principal)
CPT/HCPCS: 72100

== ENCOUNTER 2023-01-05 09:46 | Outpatient (REF) | payer MEDICARE, SELFPAY ==
--- NOTE | ~2023-01-05 | US_ITS ---
EXAMINATION: US SOFT TISSUE HEAD/NECK CLINICAL INFORMATION: Generalized enlarged lymph nodes. COMPARISON: None TECHNIQUE: Linear transducer grayscale and color Doppler examination of the thyroid bed and surrounding soft tissue. FINDINGS: At right level IB, a 1.0 x 0.6 x 0.6 cm reniform lymph node is seen. This shows normal architecture. At right level VA, a 0.5 x 0.3 x 0.5 cm reniform lymph node is seen. This shows normal architecture. At the left cervical level III, 1.2 x 0.3 x 0.8 cm and 1.0 x 0.5 x 0.9 cm reniform lymph nodes are seen. These show normal architecture. US/US soft tiss head and/or neck IMPRESSION: Shotty, nonpathologically enlarged bilateral cervical lymph nodes are seen. These are nonspecific and should be managed on a clinical basis. No lymphadenopathy is noted. There is no abnormal mass or fluid collection.
== END 2023-01-05 09:47 | disposition home or self-care (01) ==
LOC: HO.HMGCX 09:46
PROVIDERS: PCP Internal Medicine; Visit Provider Internal Medicine
DX: R59.1 Generalized enlarged lymph nodes (principal)
CPT/HCPCS: 76536

== ENCOUNTER 2023-01-24 07:23 | Outpatient (REF) | payer MEDICARE, SELFPAY ==
--- NOTE | ~2023-01-24 | MM_ITS ---
EXAMINATION: MM SCREENING DIGITAL BREAST TOMOSYNTHESIS, BILATERAL CLINICAL INFORMATION: Screening. Asymptomatic. The lifetime risk of breast cancer based on the Tyrer-Cuzick Model is 3%. COMPARISON: Mammography: 01/18/2022, 01/13/2021, 01/07/2020 TECHNIQUE: Digital breast tomosynthesis is performed in both the craniocaudal and mediolateral oblique views along with computer-aided detection (CAD). Synthesized 2D images are generated from the tomosynthesis. FINDINGS: There are scattered areas of fibroglandular density (ACR BI-RADS breast composition Category b). There are no significant masses, abnormal calcifications, or other abnormalities. No architectural abnormality or developing density or significant change from prior studies. Left breast has biopsy clip marker posterior upper outer quadrant with stable punctate regional calcifications. The axilla are unremarkable. MM/MM tomosynthesis screening BI IMPRESSION: No mammographic evidence of malignancy. ASSESSMENT: BI-RADS 2: Benign RECOMMENDATION: Routine annual mammography screening. This patient's information was entered into a reminder system with a target due date for their next mammogram.
== END 2023-01-24 07:24 | disposition home or self-care (01) ==
LOC: HO.MAMMO 07:23
PROVIDERS: PCP Internal Medicine; Visit Provider Internal Medicine
DX: Z12.31 Encounter for screening mammogram for malignant neoplasm of breast (principal)
CPT/HCPCS: 77063; 77067

== ENCOUNTER → 2023-04-28 09:22 | Outpatient (BNVA) | payer MEDICARE, SELFPAY | PROVIDERS: PCP Internal Medicine; Visit Provider Internal Medicine Gastroenterology | DX: K21.9 Gastro-esophageal reflux disease without esophagitis (principal); E55.9 Vitamin D deficiency, unspecified | CPT/HCPCS: 99212 ==

== ENCOUNTER 2023-08-23 08:49 | Outpatient (REF) | payer MEDICARE, SELFPAY | END 2023-08-23 08:50 | disposition home or self-care (01) | LOC: HO.SH 08:49 | PROVIDERS: Visit Provider Internal Medicine | DX: H91.90 Unspecified hearing loss, unspecified ear (principal) | CPT/HCPCS: 92557 ==

== ENCOUNTER 2023-08-23 09:55 | Outpatient (REF) | payer SELFPAY ==
--- NOTE | 2023-08-23 14:50 | MHC.AU.MED ---
Medical Clearance for Hearing Instrumentation Date: 08/23/23 Patient Name: Philomena Gómez Date of : 1950 Primary Care Provider: Idalmis Kyle MD We have seen your patient on 08/23/23 and have determined that they are a candidate for amplification (See accompanying report). Specifically, they would benefit from: Hearing aid use in both ears There is a statute that addresses Medical Evaluation Requirements prior to fitting a patient with a hearing aid. According to [place] statute 265 CMR:6.03(1), (a) General. Except as provided in 265 CMR 6.03(1)(b), a cover cutter shall not sell a hearing aid unless the prospective user has presented to the cover cutter a written statement signed by a licensed physician that states that the patient's hearing loss has been medically evaluated and the patient may be considered a candidate for a hearing aid. The medical evaluation must have taken place within the preceding six months. Please note: Due to the [place] Statute referenced above, we cannot accept a signature other than that of a licensed physician. PARASITOLOGY TEACHER and PA signatures cannot be accepted. I am in agreement with the above recommendation. There is no medical contraindication for hearing instrumentation. Physician Signature Date Physician Name (Printed)
--- NOTE | 2023-08-23 15:02 | MHC.AU.HA1 ---
Hearing Aid Evaluation Date of Visit: 08/23/23 Historical Information: Description of Hearing: Within normal sloping to severe sensorineural hearing loss, bilaterally Current personal amplification information: Oticon [id number] ITE FS fit in 2017 Summary: Philomena is ready to pursue new hearing aids due to the age of her current pair. Discussed a possible 3rd libertarian benefit through her [facility] Medicare Advantage insurance; however, Philomena reported she is not interested in inquiring about that benefit and would prefer to remain a patient here. She understands that [facility] cannot bill her insurance for the hearing aids and she would likely not be eligible for reimbursement. 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 Due to her limited dexterity, Philomena opted for the same ITE FS style hearing aids. Discussed option for rechargeable due to dexterity; however, Philomena chose to stay with the size 13 battery-powered device due to her comfort and familiarity with that style. Similarly, given her history with Oticon hearing aids, will stay with Oticon as notereader. Philomena is interested in new bluetooth capabilities and has an iPhone for compatibility with Oticon hearing aids. Hearing Aid Prescription: Based on the individual?s shared listening needs, communication environments, dexterity, desire for connectivity, and personal preferences, the following prescription for amplification has been made: Right ear: Make, Model, Color: Oticon OWN 2 ITE FS Color: [place] Battery Size: 13 Left ear: Left ear prescription to be same as Right Hearing Aid above: Make, Model, Color: Oticon OWN 2 ITE FS Color: [place] Battery Size: 13 Plan of Care: Patient wishes to purchase hearing aids as prescribed Action Taken/Action Needed: Earmold Impressions Taken without incident - Sent to [employer]. Medical Clearance to be requested from PCP/ENT. Hearing Instrument Fitting to be scheduled when materials arrive Primary Diagnosis: H90.3 Bilateral Sensorineural Hearing Loss Signature: Provider: Terri Obando, [facility]
== END 2023-08-23 09:56 | disposition home or self-care (01) ==
LOC: HO.HAP 09:55
PROVIDERS: PCP Internal Medicine; Visit Provider Internal Medicine
DX: Z46.1 Encounter for fitting and adjustment of hearing aid (principal); H90.3 Sensorineural hearing loss, bilateral
CPT/HCPCS: 92590

== ENCOUNTER 2023-10-10 06:54 | Day surgery (SDC) | payer MEDICARE, SELFPAY ==
[2023-10-06 10:40] VITALS: BMI 21.3
--- NOTE | 2023-10-09 10:24 | HO.ANESPROP2 ---
Documented by User: Nelly Byrne NP 10/09/23 10:28 HPI - Anesthesia Eval Consult details Narrative: 73yo F for Upper Endoscopy PMFSH Active Problems Active Problems: All Active Problems (Updated 10/06/23 @ 10:33 by Marianne Villaneuva RN) Acute neck sprain (Acute) Head and neck lymphadenopathy (Acute) Sciatica (Acute) Status post total replacement of right hip (Acute) Right hip pain (Acute) Acute sinusitis (Acute) Right knee pain (Acute) Arthritis of carpometacarpal (CMC) joint of right thumb (Acute) Arthritis of carpometacarpal (CMC) joint of left thumb (Acute) Anemia (Acute) Annual physical exam (Acute) Aortic regurgitation (Acute) Osteoporosis (Acute) Cerumen impaction (Acute) GERD (gastroesophageal reflux disease) (Acute) Skin nodule (Acute) Vitamin D deficiency (Acute) Hearing loss (Acute) Tremor (Acute) Osteoarthritis, hand (Acute) Hyponatremia (Acute) Past Medical History Medical History Aortic regurgitation Osteoporosis Cerumen impaction Skin nodule Vitamin D deficiency Hearing loss Trigger finger of right hand Tremor Osteoarthritis, hand Murmur Andrade's esophagus Seasonal allergies GERD (gastroesophageal reflux disease) Hx of mitral valve prolapse Hyponatremia Family History Family History Father CHF (congestive heart failure) HTN (hypertension) Mother Rectal bleeding Maternal Grandfather Colon cancer Daughter Mental health disorder Bipolar 1 disorder Brother Substance use disorder Alcoholic Surgical History Surgical History Hx of colonoscopy History of esophagogastroduodenoscopy (EGD) History of right hip replacement History of Problems with Anesthesia: No Social History Social History Household Members: None Housing: Condominium Alcohol intake: former Patient Tobacco Use Status: Never used Tobacco e-Cigarette/Vaping Use: Never Used Second Hand Smoke Exposure: No Are you DNR?: No Advance Directives: No Advance Directives Information Provided: Yes Nutrition Risks: No Nutritional Risk service: No 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 occupational 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 Current occupational exposures/hazards: No Cognitive needs: No Hearing needs: No Vision needs: No Meds Allergies Allergy/AdvReac Type Severity Reaction Status Date / Time diclofenac [From Voltaren] Allergy Severe Hives Verified 10/10/23 08:05 Home Medications Medication Instructions Recorded Confirmed Last Taken Type Bifidobacterium infantis 4 mg 4 mg PO DAILY 11/11/20 10/10/23 Unknown History capsule (Align) magnesium 250 mg tablet 250 mg PO DAILY 11/11/20 10/10/23 Unknown History multivitamin-ferrous 1 tab PO DAILY 11/11/20 10/10/23 Unknown History fumarate-folic acid 18 mg-400 mcg tablet (Centrum Women) cetirizine 10 mg tablet (Zyrtec) 10 mg PO DAILY PRN Allergy Symptoms 02/22/21 10/10/23 Unknown History acetaminophen 500 mg tablet 500 mg PO Q6H PRN Pain 05/18/21 10/10/23 Unknown History (Tylenol Extra Strength) cholecalciferol (vitamin D3) 50 50 mcg PO DAILY 12/31/21 10/10/23 Unknown History mcg (2,000 unit) capsule calcium carbonate 600 mg calcium 700 mg PO DAILY 06/06/22 10/10/23 Unknown History (1,500 mg) tablet (Calcium) Exam Height,Weight and Vital Signs: Height 5 ft 7 in Weight 61.689 kg Narrative Narrative: ECHO 2021 Conclusions: - Normal left ventricular size and systolic function. There is mildly increased left ventricular wall thickness. The visually estimated ejection fraction is between 60-65%. - E/E prime ratio is <8, consistent with normal filling pressures. - Normal right ventricular cavity size and systolic function. - The left atrium is severely dilated. Assessment and Plan Assessment Anesthesia Assessment: Chart Reviewed Final Anesthetic Review History of Problems with Anesthesia: No Documented by User: Paolo Mckeon MD 10/10/23 08:16 [facility] Past Medical History Medical History Aortic regurgitation Osteoporosis Cerumen impaction Skin nodule Vitamin D deficiency Hearing loss Trigger finger of right hand Tremor Osteoarthritis, hand Murmur Andrade's esophagus Seasonal allergies GERD (gastroesophageal reflux disease) Hx of mitral valve prolapse Hyponatremia Family History Family History Father CHF (congestive heart failure) HTN (hypertension) Mother Rectal bleeding Maternal Grandfather Colon cancer Daughter Mental health disorder Bipolar 1 disorder Brother Substance use disorder Alcoholic Family history of problems with anesthesia: No Surgical History Surgical History Hx of colonoscopy History of esophagogastroduodenoscopy (EGD) History of right hip replacement Social History Social History Household Members: None [facility] Alcohol intake: former Patient Tobacco Use Status: Never used Tobacco e-Cigarette/Vaping Use: Never Used Second Hand Smoke Exposure: No Are you DNR?: No Advance Directives: No Advance Directives Information Provided: Yes Nutrition Risks: No Nutritional Risk service: No 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 occupational 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 Current occupational exposures/hazards: No Cognitive needs: No Hearing needs: No Vision needs: No Meds Allergies Allergy/AdvReac Type Severity Reaction Status Date / Time diclofenac [From Voltaren] Allergy Severe Hives Verified 10/10/23 08:05 Home Medications Medication Instructions Recorded Confirmed Last Taken Type Bifidobacterium infantis 4 mg 4 mg PO DAILY 11/11/20 10/10/23 Unknown History capsule (Align) magnesium 250 mg tablet 250 mg PO DAILY 11/11/20 10/10/23 Unknown History multivitamin-ferrous 1 tab PO DAILY 11/11/20 10/10/23 Unknown History fumarate-folic acid 18 mg-400 mcg tablet (Centrum Women) cetirizine 10 mg tablet (Zyrtec) 10 mg PO DAILY PRN Allergy Symptoms 02/22/21 10/10/23 Unknown History acetaminophen 500 mg tablet 500 mg PO Q6H PRN Pain 05/18/21 10/10/23 Unknown History (Tylenol Extra Strength) cholecalciferol (vitamin D3) 50 50 mcg PO DAILY 12/31/21 10/10/23 Unknown History mcg (2,000 unit) capsule calcium carbonate 600 mg calcium 700 mg PO DAILY 06/06/22 10/10/23 Unknown History (1,500 mg) tablet (Calcium) Exam Airway Mallampati Class: I TM Dist: >3cm Loose/Missing/Broken Teeth: Yes Assessment and Plan Assessment Anesthesia Assessment: Anesthesia Plan Discussed Final Anesthetic Review Family History of Problems with Anesthesia: No NPO: Yes ASA Class: III Final Preanesthetic Review: No Changes in Pt Med Stat, Meds/Allgs Chart Reviewed, Consent Obtained/Reviewed and Anes Risks/Benef Reviewed Patient Risk: Intermediate Procedure Risk: Low Anesthetic Plan Anesthetic Plan: MAC: Disposition: Standard PACU
[2023-10-10] MEDS: Lactated Ringers 1,000 ML 100 ML IVCONT (07:13)
[2023-10-10 07:25] VITALS: BP 119/56; PULSE 65; RESP 18; TEMP 36.7; O2SAT 100
--- NOTE | 2023-10-10 08:07 | MHC.SHP ---
Pre-Procedural Eval Section A Date of Service: 10/10/23 Section B Chief Complaint: Gastro-esophageal reflux disease without esophagit Relevant Family History (Specify if Yes): No Relevant Social History: None Present Medications: see Short Stay Collaborative assessment Medical History: Significant History (Aortic regurgitation Osteoporosis Cerumen impaction Skin nodule Vitamin D deficiency Hearing loss Trigger finger of right hand Tremor Osteoarthritis, hand Murmur Andrade's esophagus Seasonal allergies GERD (gastroesophageal reflux disease) Hx of mitral valve prolapse Hyponatremia) History of Previous Operations: Relevant previous surgery/procedure and date(s) (Hx of colonoscopy History of esophagogastroduodenoscopy (EGD) History of right hip replacement) Allergies: Allergies Allergy/AdvReac Type Severity Reaction Status Date / Time diclofenac [From Voltaren] Allergy Severe Hives Verified 10/10/23 08:05 Review of Systems Sugical H&P ROS: Negative: Constitution, Cardiovascular, Respiratory, Neurological, Psychiatric, Hem-Onc, Allergic/Immunologic, Gastrointestinal, Genitourinary, Musculoskeletal, Integumentary, Endocrine and Eyes/Ears/Nose/Throat Exam Surgical H&P Exam: Normal: HEENT, Normal: Heart, Normal: Lungs, Normal: Extremities, Normal: Abdomen, Normal: Skin and Normal: Neurological Plan Diagnosis/Plan: Unchanged I have reviewed the history and physical and performed a pertinent physical examination on my patient. No changes have occurred unless specified. Time Spent With Patient Time: Total time managing care of this patient today ____ minutes.
--- NOTE | 2023-10-10 08:09 | W.PM.OPN ---
Operative Note Operative Note Date of Service: 10/10/23 Narrative: Procedure Description: EGD Indication: hx of intestinal metaplasia, GEJ inflammation Anesthesia: MAC FLEXIBLE TRANSORAL UPPER GASTROINTESTINAL ENDOSCOPY UPPER ENDOSCOPY Consent: Indications for the procedure and potential complications of bleeding, perforation, reaction to medications and missed diagnosis were discussed with the patient and informed consent was obtained. Instrument: Olympus GIF H 190 J mid size upper endoscope Monitoring: Vital signs and clinical assessment, continuous EKG monitoring, Pulse oximetry, Carbon Dioxide monitoring and blood pressure monitoring were done throughout the procedure. Procedure: The patient was placed in the left lateral decubitis position and pre-procedure medications were administered and a bite block was placed. The endoscope was inserted into the mouth and advanced under direct vision to the third part of duodenum. A careful inspection was made as the upper endoscope was withdrawn including a retroflexed examination of the proximal stomach; Findings and interventions are described below. Findings: Larynx:normal Esophagus: GE junction at 35 cm, diaphragm hiatus at 37 cm, consistent with 2 cm sliding hiatal hernia, lax LES, bx taken from GEJ due to tiny focus of salmon pink tissue suspicious for barretts Stomach: normal mucosa, bx from antrum body and angularis. Grade 3 flap valve on retroflexed examination of the cardia. Duodenum: Normal bulb and descending duodenum, Intervention: Biopsies as noted above, Impression/Findings: lax LES hiatal hernia PLAN: await bx cont with PPI for the moment, might consider cutting down to 20 mg as overall appearances are pretty good reflux precautions
[2023-10-10 08:38] VITALS: BP 96/69; PULSE 62; RESP 18; TEMP 36.2; O2SAT 100
[2023-10-10 08:53] VITALS: BP 135/56; PULSE 61; RESP 18; TEMP 36.3; O2SAT 99
== END 2023-10-10 09:45 | disposition home or self-care (01) ==
PROVIDERS: PCP Internal Medicine; Visit Provider Internal Medicine Gastroenterology
PROC: 0DJ08ZZ Inspection of Upper Intestinal Tract, Via Natural or Artificial Opening Endoscopic (ICD-10-PCS; CPT 43235; principal; 2023-10-10 08:30)
DX: K22.4 Dyskinesia of esophagus (principal); K44.9 Diaphragmatic hernia without obstruction or gangrene; K21.9 Gastro-esophageal reflux disease without esophagitis; E55.9 Vitamin D deficiency, unspecified; I35.1 Nonrheumatic aortic (valve) insufficiency; D64.9 Anemia, unspecified
CPT/HCPCS: 43239; 88305; 88342; J2704

== ENCOUNTER → 2023-10-10 06:54 | Outpatient (BNV) | payer MEDICARE, SELFPAY | PROVIDERS: PCP Internal Medicine; Visit Provider Internal Medicine Gastroenterology | DX: K31.A0 Gastric intestinal metaplasia, unspecified (principal) | CPT/HCPCS: 43239 ==

== ENCOUNTER 2023-10-19 13:00 | Outpatient (REF) | payer SELFPAY ==
--- NOTE | 2023-10-19 16:08 | MHC.AU.HA2 ---
Hearing Instrument Fitting- Adult- Binaural Date of Visit: 10/19/23 Hearing Instruments Dispensed: Right Ear: Make, Model, Color, Serial Number: Oticon OWN 2 ITE FS SN: [id number] Color: [place] Greeter Repair Warranty: 10/05/2026 Greeter Loss and Damage Warranty: 10/05/2026 [facility] Service Plan: OPTED OUT Battery Size: 312 Type of Wax Guard: miniFit Left Ear: Make, Model, Color, Serial Number: Oticon OWN 2 ITE FS SN: [id number] Color: [place] Greeter Repair Warranty: 10/05/2026 Greeter Loss and Damage Warranty: 10/05/2026 [facility] Service Plan: OPTED OUT Battery Size: 312 Type of Wax Guard: miniFit Summary of Fitting: Performed feedback analyzer and real ear measures. Slightly loud but comfortable at real ear settings. Philomena also noticed an improvement in clarity compared to her old hearing aids. Added a P2 for [id number] and enabled volume control wheel. Reviewed care and use. As a long time hearing aid user, Philomena was familiar with general maintenance and insertion/removal. Paired to cellphone and instructed on use. Also discussed option to use [email or web address] hayden. Philomena may download hayden at home if she chooses to use it. Recommendations: A hearing instrument follow-up was scheduled. Diagnosis Code(s): Primary Diagnosis: H90.3 Bilateral Sensorineural Hearing Loss Signature: Provider: Terri Obando, [facility]
== END 2023-10-19 13:01 | disposition home or self-care (01) ==
LOC: HO.HAP 13:00
PROVIDERS: Visit Provider Internal Medicine
DX: Z46.1 Encounter for fitting and adjustment of hearing aid (principal); H90.3 Sensorineural hearing loss, bilateral
CPT/HCPCS: 92700; V5260

== ENCOUNTER 2023-11-02 13:54 | Outpatient (REF) | payer SELFPAY ==
--- NOTE | 2023-11-02 15:15 | MHC.AU.HA3 ---
Hearing Instrument Follow-Up- Binaural Date of Visit: 11/02/23 Right Ear: Make, Model, Color, Serial Number: Oticon OWN 2 ITE FS SN: [id number] Color: [place] [employer] Laborer Repair Warranty: 10/05/2026 [employer] Lab[employer] Loss and Damage Warranty: 10/05/2026 [facility] Service Plan: OPTED OUT Battery Size: 312 Campus Director/Slim Tube: 90 Type of Wax Guard: miniFit Dispensed By: [facility] Date of Fittin10/19/2023 Left Ear: Make, Model, Color, Serial Number: Oticon OWN 2 ITE FS SN: [id number] Color: [place] [employer] Laborer Repair Warranty: 10/05/2026 Forestry Laborer Loss and Damage Warranty: 10/05/2026 [facility] Service Plan: OPTED OUT Battery Size: 312 Campus Director/Slim Tube: 90 Type of Wax Guard: miniFit Dispensed By: [facility] Date of Fittin10/19/2023 Follow-Up Summary: Philomena reported that overall the hearing aids have been good and she notices a significant improvement in clarity of speech compared to her old hearing aids. She was able to sit in the balcony at the [employer] and did not have any issues hearing the concert. 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 She also reported that, while wearing the right hearing aid, she randomly heard the start up jingle several times - unsure cause. Philomena will monitor and try to determine specific situations when it happens and will readdress at next follow up. Added a P3 as myMusic program to try with [employer] organ to help resolve overtone issue. Otherwise, Philomena is happy with the hearing aids and no other programming adjustments made to P1 or P2 at this time. Recommendations: An additional follow-up was scheduled to monitor progress. Diagnosis Code(s): Primary Diagnosis: H90.3 Bilateral Sensorineural Hearing Loss Signature: Provider: Terri Obando, [facility]
== END 2023-11-02 13:55 | disposition home or self-care (01) ==
LOC: HO.HAP 13:54
PROVIDERS: Visit Provider Internal Medicine
DX: Z13.89 Encounter for screening for other disorder (principal)

== ENCOUNTER 2023-11-16 13:53 | Outpatient (REF) | payer SELFPAY ==
--- NOTE | 2023-11-16 16:19 | MHC.AU.HA3 ---
Hearing Instrument Follow-Up- Binaural Date of Visit: 11/16/23 Right Ear: Make, Model, Color, Serial Number: Oticon OWN 2 ITE FS SN: [id number] Color: [place] Coc[employer] Room Operator Repair Warranty: 10/05/2026 [employer] Loss and Damage Warranty: 10/05/2026 [facility] Service Plan: OPTED OUT Battery Size: 312 Conveyor System Operator/Slim Tube: 90 [place]old/Dome/CShell/SlimTip: Type of Wax Guard: miniFit Dispensed By: [facility] Date of Fittin10/19/2023 Left Ear: Make, Model, Color, Serial Number: Oticon OWN 2 ITE FS SN: [id number] Color: [place] Coc[employer] Room Operator Repair Warranty: 10/05/2026 [employer] Operator Loss and Damage Warranty: 10/05/2026 [facility] Service Plan: OPTED OUT Battery Size: 312 Conveyor System Operator/Slim Tube: 90 Earmold/Dome/CShell/SlimTip: Type of Wax Guard: miniFit Dispensed By: [facility] Date of Fittin10/19/2023 Follow-Up Summary: Here for follow up. 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 Notes the right aid randomly restarting issue has occurred one time since last visit. Decreased gain slightly in highs for music program. Discussed issue with right aid, patient reports she will monitor it at this time and bring it out to be sent for repair if the issue persists. Generally happy and satisfied with the new hearing aids. Recommendations: Recommendations: Patient will call if problems persist. Diagnosis Code(s): Primary Diagnosis: H90.3 Bilateral Sensorineural Hearing Loss Signature: Provider: Terri Morrow, [facility]
--- NOTE | 2023-11-16 16:19 | MHC.AU.HA3 ---
Hearing Instrument Follow-Up- Binaural Date of Visit: 11/16/23 Right Ear: Make, Model, Color, Serial Number: Oticon OWN 2 ITE FS SN: [id number] Color: [place] [facility] Therapist Repair Warranty: 10/05/2026 [facility] The[facility]ist Loss and Damage Warranty: 10/05/2026 [facility] Service Plan: OPTED OUT Battery Size: 312 Crossbar Frame Wirer/Slim Tube: 90 [place]/Dome/CShell/SlimTip: Type of Wax Guard: miniFit Dispensed By: [facility] Date of Fittin10/19/2023 Left Ear: Make, Model, Color, Serial Number: Oticon OWN 2 ITE FS SN: [id number] Color: [place] [facility] Therapist Repair Warranty: 10/05/2026 [facility] Therapist Loss and Damage Warranty: 10/05/2026 [facility] Service Plan: OPTED OUT Battery Size: 312 Crossbar Frame Wirer/Slim Tube: 90 [place]/Dome/CShell/SlimTip: Type of Wax Guard: miniFit Dispensed By: [facility] Date of Fittin10/19/2023 Follow-Up Summary: Here for follow up. 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 Notes the right aid randomly restarting issue has occurred one time since last visit. Decreased gain slightly in highs for music program. Discussed issue with right aid, patient reports she will monitor it at this time and bring it out to be sent for repair if the issue persists. Generally happy and satisfied with the new hearing aids. Recommendations: Recommendations: Patient will call if problems persist. Diagnosis Code(s): Primary Diagnosis: H90.3 Bilateral Sensorineural Hearing Loss Signature: Provider: Terri Morrow, [facility]
== END 2023-11-16 13:54 | disposition home or self-care (01) ==
LOC: HO.HAP 13:53
PROVIDERS: Visit Provider Internal Medicine
DX: Z13.89 Encounter for screening for other disorder (principal)

== ENCOUNTER 2023-12-27 06:51 | Outpatient (REF) | payer SELFPAY ==
[2023-12-27 11:47] LABS: Basophils Absolute Auto 0.1 X10*3/uL (0.0-0.2); Eosinophils Absolute Auto 0.2 X10*3/uL (0.0-0.4); Eosinophils Percent Auto 3.2 % (0-4); Hematocrit 33.4 % (37.0-47.0); Hemoglobin 11.2 g/dl (12.0-16.0); Imm Gran Abs Auto 0.02 X10*3/uL (0.00-0.03); Imm Gran Pct Auto 0.3 % (0.0-0.4); Lymphocytes Percent Auto 33.3 % (20-40); MANUAL DIFF FLAG NO; Mean Corpuscular HGB Conc 33.5 g/dl (31.0-35.0); Mean Corpuscular Hemoglobin 30.9 pg (27.0-33.0); Mean Corpuscular Volume 92.3 fL (80.0-98.0); Mean Platelet Volume 9.7 fL (9.4-12.3); Monocytes Absolute Auto 0.6 X10*3/uL (0.1-1.2); Monocytes Percent Auto 10.8 % (2-11); Neutrophils Percent Auto 51.4 % (45-73); Platelet Count 266 X10*3/uL (160-400); Red Blood Count 3.62 X10*6/uL (4.20-5.50); Red Cell Distribution Width 12.9 % (11.0-16.0); White Blood Count 5.9 X10*3/uL (4.8-10.8)
[2023-12-27 13:03] LABS: Vitamin B12 784 pg/mL (200-900)
[2023-12-27 13:04] LABS: Alanine Aminotransferase 19 U/L (0-31); Albumin Level 3.9 g/dL (3.5-5.0); Alkaline Phosphatase 60 U/L (39-117); Anion Gap 9 (12-20); Aspartate Amino Transferase 19 U/L (5-31); Bilirubin Total 0.4 mg/dL (0.0-1.0); Blood Urea Nitrogen 21 mg/dL (9-16); Calcium 9.4 mg/dL (8.4-10.2); Carbon Dioxide 27 mmol/L (22-29); Chloride 102 mmol/L (96-108); Cholesterol 200 mg/dL (<200); Estimated Glomerular Filt Rate > 60; Glucose Fasting 82 mg/dL (60-99); HDL Cholesterol 88 mg/dL (>40); Iron 98 mcg/dL (30-160); LDL Cholesterol Calculated 103 mg/dL (<100); Percent Iron Saturation 29 % (15-50); Potassium 4.2 mmol/L (3.3-5.1); Sodium 134 mmol/L (135-145); Total Iron Binding Capacity 342 mcg/dL (228-428); Total Protein 6.5 g/dL (6.5-8.0); Triglycerides 48 mg/dL (<150); Unsaturated Iron Binding 244 ug/dL
[2023-12-27 14:14] LABS: TSH reflex Free T4 1.09 uIU/mL (0.32-4.0); Vitamin D 25-OH Total 54.1 ng/mL (>30)
== END 2023-12-27 06:52 | disposition home or self-care (01) ==
LOC: HO.HMGCLDS 06:51
PROVIDERS: PCP Internal Medicine; Visit Provider Internal Medicine
DX: Z00.00 Encounter for general adult medical examination without abnormal findings (principal); D64.9 Anemia, unspecified; M81.0 Age-related osteoporosis without current pathological fracture; E55.9 Vitamin D deficiency, unspecified
CPT/HCPCS: 36415; 80053; 80061; 82306; 82607; 83540; 84443; 85025

== ENCOUNTER 2024-01-03 07:48 | Outpatient (AMB) | payer MEDICARE, SELFPAY ==
[2024-01-03 08:10] VITALS: BP 110/72; PULSE 72; O2SAT 99; BMI 21.1
--- NOTE | 2024-01-03 08:10 | MHC.PC.OV ---
Vital Signs 01/03/24 08:10 Height 5 ft 7 in Weight 135 lb BMI 21.1 BP 110/72 Blood Pressure Location Lt brachial Position Sitting Pulse 72 Pulse Source Pulse Oximeter Pulse Oximetry (%) 99 Oxygen Delivery Method Room Air Intake Visit Reasons: Annual PE Intake Note: Pt is here today for PE. Allergies diclofenac [From Voltaren] Allergy (Severe, Verified 01/03/24 08:12) Hives Medication List - Last Reconciled 01/03/24 by Idalmis Kyle MD acetaminophen (Tylenol Extra Strength) 500 mg PO Q6H PRN Bifidobacterium infantis (Align) 4 mg PO DAILY calcium carbonate (Calcium) 700 mg PO DAILY cetirizine (Zyrtec) 10 mg PO DAILY PRN cholecalciferol (vitamin D3) 50 mcg PO DAILY esomeprazole magnesium 20 mg PO DAILY magnesium 250 mg PO DAILY miscellaneous medical supply 2 ea miscellaneous DAILY nzujkocswnjs-pnlo-aujvi acid 18-400 mg-mcg (Centrum Women) 1 tab PO DAILY simethicone (Gas Relief (simethicone)) 125 mg PO TID PRN Tobacco use date assessed: 01/03/24 Fall risk assessment: No Falls in past year Last assessed Fall Risk: 01/03/24 Dental Screening Dental Screen Date: 01/03/24 Did you have a dental visit in the last 12 months?: Yes Did you have a dental problem in the last 6 months where you did not have access to dental care?: No Was dental information given to patient?: Patient has dentist HPI Annual PE HPI Details Patient presents for physical. [facility] Medical History (Updated 01/03/24 @ 09:47 by Idalmis Kyle MD) Aortic regurgitation Osteoporosis Cerumen impaction Skin nodule Vitamin D deficiency Hearing loss Trigger finger of right hand Tremor Osteoarthritis, hand Murmur Andrade's esophagus Seasonal allergies GERD (gastroesophageal reflux disease) Hx of mitral valve prolapse Hyponatremia Surgical History Hx of colonoscopy History of esophagogastroduodenoscopy (EGD) History of right hip replacement Family History Father CHF (congestive heart failure) HTN (hypertension) Mother Rectal bleeding Maternal Grandfather Colon cancer Daughter Mental health disorder Bipolar 1 disorder Brother Substance use disorder Alcoholic Social History Household Members: None Housing: Condominium Alcohol intake: former Patient Tobacco Use Status: Never used Tobacco e-Cigarette/Vaping Use: Never Used Second Hand Smoke Exposure: No service: No Current occupational status: retired 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 1. Little interest or pleasure in doing things: not at all 2. Feeling down, depressed, or hopeless: not at all 3. Trouble falling or staying asleep, or sleeping too much: not at all 4. Feeling tired or having little energy: not at all 5. Poor appetite or overeating: not at all 6. Feeling bad about yourself - or that you are a failure or have let yourself or your family down: not at all 7. Trouble concentrating on things, such as reading the newspaper or watching television: not at all 8. Moving or speaking so slowly that other people could have noticed. Or the opposite - being so fidgety or restless that you have been moving around a lot more than usual: not at all 9. Thoughts that you would be better off or of hurting yourself in some way: not at all Total score: 0 Depression Screening Interpretation: Negative Depression Screening Done: Yes Source: Developed by Drs. Paolo Arenas, Silvana Seo, Gaurav Rasmussen and colleagues, with an educational christine from [employer]. Thrive Questionnaire Date Thrive assessed: 01/03/24 I am a: Patient What is your living situation today?: I have a steady place to live Within the past 12 months, did the food you bought not last and you didn't have the money to get more?: Never true Within the past 12 months, did you worry whether your food would run out before you got money to buy more?: Never true Do you have trouble paying for medicines?: No Do you have trouble getting transportation to medical appointments?: No Do you have trouble paying your heating and electricity bill?: No Do you have trouble taking care of your child, family member or friend?: No Do you have trouble with day-to-day activities such as bathing, preparing meals, shopping, managing finances, etc.?: No Are you currently unemployed and looking for a job?: No Are you interested in more education?: No Please select the resources that you would like help with: None Currently or been in a relationship where the following occur: no concerns reported THRIVE Score: 0 AUDIT C Alcohol Use Questionnaire (AUDIT-C) 1. How often do you have a drink containing alcohol?: Never 3. How often do you have six or more drinks on one occasion?: Never Total Score: 0 ANNE-7 AMB Questionnaire ANNE-7 Date ANNE - 7 assessed: 01/03/24 Feeling nervous, anxious, or on edge: 0 = Not at all Not being able to stop or control worryin = Not at all Worrying too much about different things: 0 = Not at all Trouble relaxin = Not at all Being so restless that it is hard to sit still: 0 = Not at all Becoming easily annoyed or irritable: 0 = Not at all Feeling afraid as if something awful might happen: 0 = Not at all Total ANNE-7 score (0-4 normal; 5-9 mild; 10-14 moderate; 15-21 severe): 0 Source: Developed by Drs. Paolo Arenas, Silvana Seo, Gaurav Rasmussen and colleagues, with an educational christine from [employer]. Review of Systems Const All systems reviewed & are unremarkable except as noted in HPI and below Reports no additional complaints Eyes Reports no additional complaints ENT Reports no additional complaints Card Reports no additional complaints Resp Reports no additional complaints GI Reports no additional complaints Reports no additional complaints Musc Reports no additional complaints Physical exam (Primary Care) Vital Signs: Last Vital Signs Pulse 72 01/03/24 08:10 BP 110/72 01/03/24 08:10 Pulse Ox 99 01/03/24 08:10 Oxygen Delivery Method Room Air 01/03/24 08:10 BMI result Body Mass Index 21.1 Tobacco/Smoking Status: Tobacco use Status Tobacco use date assessed 01/03/24 01/03/24 08:17 Patient Tobacco Use Status Never used Tobacco 01/03/24 08:17 e-Cigarette/Vaping Use Never Used 01/03/24 08:11 PHQ-9: PHQ-9 Score PHQ-9: Total score 0 01/03/24 08:19 Depression Screening Interpretation: Negative Thrive Assessment: Date of Thrive Assessment Date Thrive assessed 01/03/24 01/03/24 08:19 Currently or been in a relationship where the following occur: no concerns reported Const General: no acute distress HENMT Head: Yes normal to inspection Ears: hearing grossly normal bilaterally Mouth: Normal oral and palatal mucosa present Throat: Yes posterior oropharynx normal Eyes General: appearance normal, both eyes and all related structures Neck Neck: Yes no lymphadenopathy and Yes supple Resp Effort & Inspection: normal respiratory effort Auscultation: clear to auscultation bilaterally Cardio Rhythm: regular rhythm Heart sounds: S1 normal heart sound present and S2 normal heart sound present GI Inspection: Yes normal to inspection Palpation (GI): Soft to palpation Percussion: Yes normal to percussion Auscultation: normal bowel sounds Assessment and Plan Assessment & Plan (1) Bunion of great toe: Code(s): M21.619 - Bunion of unspecified foot Plan: Referred to Podiatry (2) Aortic regurgitation: Comment: 02/08 Echo nl EF, mild AI, mild MR Code(s): I35.1 - Nonrheumatic aortic (valve) insufficiency Plan: Check follow-up echo (3) Osteoporosis: Comment: DEXA 10/2021, T score 3.0 , unchanged for 2019, took Fosamax for 8 years in the past >7 yrs ago Code(s): M81.0 - Age-related osteoporosis without current pathological fracture Plan: Continue vitamin-D supplement, regular weight-bearing exercises and repeat DEXA (4) Annual physical exam: Code(s): Z00.00 - Encounter for general adult medical examination without abnormal findings Plan: Well-balanced diet regular physical activity discussed with the patient. She is up-to-date with mammogram and colonoscopy (5) Anemia: Comment: Borderline low RBCs and hematocrit, normal iron vitamin B12 levels. Code(s): D64.9 - Anemia, unspecified Plan: Monitor CBC Orders: Orders Complete Blood Count Man Dif 365 Days D64.9 - Anemia, unspecified, E55.9 - Vitamin D deficiency, unspecified, E87.1 - Hypo-osmolality and hyponatremia, M81.0 - Age-related osteoporosis without current pathological fracture, Z00.00 - Encounter for general adult medical examination without abnormal findings Lipid Panel 365 Days D64.9 - Anemia, unspecified, E55.9 - Vitamin D deficiency, unspecified, E87.1 - Hypo-osmolality and hyponatremia, M81.0 - Age-related osteoporosis without current pathological fracture, Z00.00 - Encounter for general adult medical examination without abnormal findings CA echo limited Today I35.1 - Nonrheumatic aortic (valve) insufficiency XR DEXA axial skeleton Today M81.0 - Age-related osteoporosis without current pathological fracture Comprehensive [place]. Panel Fast 365 Days D64.9 - Anemia, unspecified, E55.9 - Vitamin D deficiency, unspecified, E87.1 - Hypo-osmolality and hyponatremia, M81.0 - Age-related osteoporosis without current pathological fracture, Z00.00 - Encounter for general adult medical examination without abnormal findings Vitamin B12 and Folate 365 Days D64.9 - Anemia, unspecified, E55.9 - Vitamin D deficiency, unspecified, E87.1 - Hypo-osmolality and hyponatremia, M81.0 - Age-related osteoporosis without current pathological fracture, Z00.00 - Encounter for general adult medical examination without abnormal findings Vitamin D 25-OH Total 365 Days D64.9 - Anemia, unspecified, E55.9 - Vitamin D deficiency, unspecified, E87.1 - Hypo-osmolality and hyponatremia, M81.0 - Age-related osteoporosis without current pathological fracture, Z00.00 - Encounter for general adult medical examination without abnormal findings UA w Microscopic 365 Days D64.9 - Anemia, unspecified, E55.9 - Vitamin D deficiency, unspecified, E87.1 - Hypo-osmolality and hyponatremia, M81.0 - Age-related osteoporosis without current pathological fracture, Z00.00 - Encounter for general adult medical examination without abnormal findings Immunofixation Pnl, Serum 365 Days D64.9 - Anemia, unspecified, E55.9 - Vitamin D deficiency, unspecified, E87.1 - Hypo-osmolality and hyponatremia, M81.0 - Age-related osteoporosis without current pathological fracture, Z00.00 - Encounter for general adult medical examination without abnormal findings Referrals Podiatry Referral M21.619 - Bunion of unspecified foot Coding Level of Care Code Est Pt Prev Care >65y(81991) Diagnoses Bunion of great toe M21.619 Aortic regurgitation I35.1 Osteoporosis M81.0 Annual physical exam Z00.00 Anemia D64.9
== END 2024-01-03 09:27 | disposition home or self-care (01) ==
PROVIDERS: PCP Internal Medicine; Visit Provider Internal Medicine
DX: M21.619 Bunion of unspecified foot (principal); I35.1 Nonrheumatic aortic (valve) insufficiency; M81.0 Age-related osteoporosis without current pathological fracture; Z00.00 Encounter for general adult medical examination without abnormal findings; D64.9 Anemia, unspecified
CPT/HCPCS: 99397

== ENCOUNTER → 2024-01-25 08:53 | Outpatient (REF) | payer MEDICARE, SELFPAY ==
--- NOTE | 2024-01-25 08:56 | CA_ITS ---
Transthoracic Echocardiogram Patient (Last, First, Middle): Philomena Gómez, Gender: Female Date of : 1950 Age: 73 Procedure Date: 01/25/2024 Procedure Type: Transthoracic Echocardiogram Location: OP Height: 170.18 cm Weight: 61.24 kg BSA: 1.71 m2 Heart Rate: bpm BP: 116 / 60 mmHg Supervisor Crack Off: TO Referring MD: Idalmis Kyle MD Extrusion Operator: Srinivasa Jarrell MD Symptoms: I35.1 - Nonrheumatic aortic (valve) insufficiency Study Quality: Adequate ECG Rhythm: Sinus Conclusions: - 1. Normal LV systolic function with LVEF of 65-70% 2. Mildly dilated left atrium 3. Mild aortic stenosis and regurgitation 4. Mild mitral regurgitation 5. Normal RV systolic pressure 6. No gross pericardial effusion Findings Left Ventricle Normal left ventricular size, thickness, and systolic function. The visually estimated ejection fraction is between 65-70%. Spectral Doppler is indicative of a normal filling pattern. There is mild septal asymmetric hypertrophy. Peak GLS is -19.5%, within normal limits. Right Ventricle Normal right ventricular cavity size and systolic function. Atria The left atrium is mildly dilated. Interatrial shunt cannot be excluded. The right atrium is normal in size. Aortic Valve The aortic valve was not well visualized. There is mild aortic valve stenosis. The peak aortic velocity is 2.35 m/s with a calculated peak gradient of 22 mmHg. The mean gradient is 12 mmHg. The aortic valve area is 1.64 cm2. There is mild aortic valve regurgitation. Mitral Valve There is mild anterior mitral leaflet thickening. There is mild mitral annular calcification. There is mild mitral valve regurgitation. There is no mitral valve stenosis. Pulmonic Valve The pulmonic valve is likely normal. Tricuspid Valve Normal tricuspid valve structure. There is trace tricuspid valve regurgitation. The right ventricular systolic pressure is normal. The right ventricular systolic pressure is 16 mmHg. Normal right atrial pressure. There is no evidence of pulmonary hypertension. Great Vessels All visible segments of the aorta are normal in size. The pulmonary artery was not well visualized. There is no dilatation of the ascending aorta measuring 3.10 cm. Venous The inferior vena cava is normal in size. Inferior vena cava flow is normal. Pericardium/Pleural There is no evidence of pericardial effusion. Measurements 2D Linear Measurements IVSd: 1.54 0.6-0.9/0.6-1.0 cm LVIDd: 4.01 3.9-5.3/4.2-5.9 cm LVIDd Index: 2.35 2.4-3.2/2.2-3.1 cm/m2 LVIDs: 2.36 2.0-3.6 cm LVPWd: 1.08 0.7-1.1 cm LA Diam: 3.50 2.7-3.8/3.0-4.0 cm LAIDs Index: 2.05 1.5-2.3 cm/m2 LV Mass: 236.03 67-162/88-224 g LV Mass Index: 138.03 43-95/49-115 g/m2 LVOT Diam: 2.20 3.0+(-)1.3 cm 2D Systolic Function EF 4C: 68.30 >55% EF 2C: 62.70 >55% EF BiP: 65.90 >55% Mitral Valve MV Pk E: 0.65 MV PK A: 0.36 MV Decel Time: 176.00 E/A: 1.80 E'Lateral: 7.62 E'Medial: 6.31 E/E' Med: 10.30 E/E' Lat: 8.50 PHT: 52.00 MVA PHT: 4.23 Decel [place]: 3.68 Aortic Valve AoV Pk Yonas: 2.35 AoV Mn Yonas: 1.68 AoV VTI: 0.62 AoV Pk Grad: 22.00 Aov Mn Grad: 12.00 BRENDA Cont.VTI: 1.64 AI Pk Yonas: 3.73 AI VTI: 2.46 AI Alias Yonas: 0.36 AI RV - PISA: 74.00 ERO - PISA: 30.00 LVOT LVOT Pk Yonas: 1.11 LVOT Mn Yonas: 0.64 LVOT VTI: 0.27 LVOT Pk Grad: 5.00 LVOT Mn Grad: 2.00 LVOT Diam: 2.20 LVOT Area: 3.80 Diastolic Function MV Pk E: 0.65 MV Pk A: 0.36 E/A: 1.80 E'Medial: 6.31 E/E' Med: 10.30 E' Laterial: 7.62 E/E' Lat: 8.50 Right Ventricle TAPSE (mm): 25.40 TVS' Yonas: 9.90 Tricuspid Valve TR Pk Yonas: 1.82 TR Pk Grad: 13.00 RA Press: 3.00 RVSP: 16.00 Great Vessels Aorta Sinus of Valsalva: 3.18 2.0-3.[address] [place]: 2.48 1.7-3.4 cm Ao Asc: 3.10 2.1-3.4 cm Ao Arch: 2.90 Updated in Other Vendor System with Status of Final Srinivasa Jarrell MD electronically signed on 01/26/2024 2:06:37 PM with status of Final
== END ==
LOC: HO.CARD 08:53
PROVIDERS: PCP Internal Medicine; Visit Provider Internal Medicine
DX: I35.1 Nonrheumatic aortic (valve) insufficiency (principal)
CPT/HCPCS: 93306; 93356

== ENCOUNTER → 2024-01-25 08:56 | Outpatient (BNV) | payer MEDICARE, SELFPAY | PROVIDERS: PCP Internal Medicine; Visit Provider Internal Medicine Cardiovascular Disease | DX: I35.2 Nonrheumatic aortic (valve) stenosis with insufficiency (principal) | CPT/HCPCS: 93306; 93356 ==

== ENCOUNTER 2024-01-26 09:40 | Outpatient (REF) | payer MEDICARE, SELFPAY ==
--- NOTE | ~2024-01-26 | MM_ITS ---
EXAMINATION: BONE DENSITOMETRY CLINICAL INDICATION: Age-related osteoporosis without current pathological fracture. COMPARISON: Previous BD dated 11/18/2021 and baseline BD dated 11/07/2019. TECHNIQUE: Using a [employer] DXA System (software version: 13.1) manufactured by [employer], dual-energy x-ray absorptiometry was performed of the lumbar spine and left hip. The images are of good technical quality. Summary results are attached. FINDINGS: LEFT FEMUR, NECK: Current: BMD 0.61 g/cm2, Z-score -1.1, T-score -3.1, osteoporosis. Prior: BMD 0.635 g/cm2. Baseline: BMD 0.665 g/cm2. LEFT FEMUR, TOTAL: Current: BMD 0.587 g/cm2, Z-score -1.5, T-score -3.3, osteoporosis, 6.8% decrease from previous, 10.4% decrease from baseline (<5% change is not significant). Prior: BMD 0.630 g/cm2. Baseline: BMD 0.655 g/cm2. AP SPINE L1-L3 (excluding L4): The data of L1-L4 has been changed to exclude the L4 vertebral body, because degenerative sclerosis at this level may cause overestimation of lumbar spine density. Current: BMD 0.979 g/cm2, Z-score 0.3, T-score -1.6, osteopenia, 11.6% decrease from previous, 12.7% decrease from baseline (<5% change is not significant). Prior: BMD 1.107 g/cm2. Baseline: BMD 1.122 g/cm2. IDENTIFIED RISK FACTORS: Menopause, height loss, osteoporosis. HISTORY OF FRACTURE: None listed. MEDICATIONS: Calcium, vitamin D. MM/XR DEXA axial skeleton IMPRESSION: 1. DIAGNOSIS: Osteoporosis based on the lowest T-score value of -3.3 in the total femur applying World Health Organization criteria. 2. 10-YEAR FRACTURE RISK PREDICTION, FRAX: According to the guidelines, FRAX calculation should only be performed on patients in the osteopenia bone density category. Therefore, FRAX was not performed on this patient. 3. Treatment Recommendations: NOF guidelines recommend consideration for treatment in postmenopausal women and men age 50 and older presenting with the following: -A hip or vertebral (clinical or morphometric) fracture. -T-score less than or equal to -2.5 at the femoral neck or spine after appropriate evaluation to exclude secondary causes. -Low bone mass at the hip or spine and a 10-year fracture probability by FRAX of greater than or equal to 3% for hip fracture or greater than or equal to 20% for major osteoporotic fracture based on the [place] adapted WHO algorithm. 4. Other Recommendations: All treatment decisions require clinical judgment and consideration of individual patient factors, including patient preferences, comorbidities, previous drug use, risk factors not captured in the FRAX model (e.g. frailty, falls, vitamin D deficiency, increased bone turnover, interval significant decline in bone density) and possible under or overestimation of fracture risk by FRAX. Additional medical evaluation for secondary cause of low bone mineral density may be appropriate. FUTURE SCAN RECOMMENDATION: People with diagnosed cases of osteoporosis or at high risk for fracture should have regular bone mineral density tests. For patients eligible for Medicare, routine testing is allowed once every 2 years. The testing frequency can be increased to one year for patients who have rapidly progressing disease, those who are receiving or discontinuing medical therapy to restore bone mass, or have additional risk factors.
--- NOTE | ~2024-01-26 | MM_ITS ---
EXAMINATION: MM SCREENING DIGITAL BREAST TOMOSYNTHESIS, BILATERAL CLINICAL INFORMATION: Screening. Asymptomatic. COMPARISON: Mammography: This study is compared with prior exams dating back to 2019. TECHNIQUE: Digital breast tomosynthesis is performed in both the craniocaudal and mediolateral oblique views along with computer-aided detection (CAD). Synthesized 2D images are generated from the tomosynthesis. FINDINGS: There are scattered areas of fibroglandular density (ACR BI-RADS breast composition Category b). There are no significant masses, abnormal calcifications, or other abnormalities. There are unchanged, benign calcifications in the upper-outer quadrant of the left breast. There is a biopsy tissue marker in the same quadrant as well. MM/MM tomosynthesis screening BI IMPRESSION: No mammographic evidence of malignancy. ASSESSMENT: BI-RADS BI-RADS 2 - Benign Findings RECOMMENDATION: Routine annual mammography screening. 1 year F/U This examination should not preclude the clinical evaluation of a suspicious palpable abnormality. This patient's information was entered into a reminder system with a target due date for their next mammogram.
== END 2024-01-26 09:41 | disposition home or self-care (01) ==
LOC: HO.MAMMO 09:40
PROVIDERS: PCP Internal Medicine; Visit Provider Internal Medicine
DX: Z12.31 Encounter for screening mammogram for malignant neoplasm of breast (principal); Z13.820 Encounter for screening for osteoporosis; M81.0 Age-related osteoporosis without current pathological fracture; Z78.0 Asymptomatic menopausal state
CPT/HCPCS: 77063; 77067; 77080

== ENCOUNTER → 2024-01-26 10:00 | Outpatient (BNV) | payer MEDICARE, SELFPAY | PROVIDERS: PCP Internal Medicine; Visit Provider Radiology Diagnostic Radiology | DX: Z12.31 Encounter for screening mammogram for malignant neoplasm of breast (principal) | CPT/HCPCS: 77063; 77067 ==

== ENCOUNTER 2024-02-05 07:32 | Outpatient (REF) | payer MEDICARE, SELFPAY ==
--- NOTE | ~2024-02-05 | XR_ITS ---
EXAMINATION: 1. X-RAY KNEE STANDING BILATERAL 2. LATERAL AND SUNRISE X-RAYS OF THE RIGHT KNEE. 3. LATERAL AND SUNRISE X-RAYS OF THE LEFT KNEE. CLINICAL INFORMATION: Bilateral knee pain COMPARISON: Bilateral knee x-rays March 01, 2021 TECHNIQUE: 3 views of each knee were obtained. FINDINGS: Right knee: No fracture or dislocation. Mild narrowing of the medial joint space height with moderate narrowing of the lateral joint space height. No suprapatellar joint effusion. Small to moderate-sized tricompartmental marginal osteophytes, predominantly involving the lateral compartment. No localized soft tissue swelling. Left knee: No fracture or dislocation. No suprapatellar joint effusion. Mild narrowing of the medial and lateral joint spaces. Small tricompartmental marginal osteophytes. No localized soft tissue swelling. XR/XR knee RT 2V IMPRESSION: Moderate degenerative changes of the right knee with mild degenerative changes of the left knee.
--- NOTE | ~2024-02-05 | XR_ITS ---
EXAMINATION: 1. X-RAY KNEE STANDING BILATERAL 2. LATERAL AND SUNRISE X-RAYS OF THE RIGHT KNEE. 3. LATERAL AND SUNRISE X-RAYS OF THE LEFT KNEE. CLINICAL INFORMATION: Bilateral knee pain COMPARISON: Bilateral knee x-rays March 01, 2021 TECHNIQUE: 3 views of each knee were obtained. FINDINGS: Right knee: No fracture or dislocation. Mild narrowing of the medial joint space height with moderate narrowing of the lateral joint space height. No suprapatellar joint effusion. Small to moderate-sized tricompartmental marginal osteophytes, predominantly involving the lateral compartment. No localized soft tissue swelling. Left knee: No fracture or dislocation. No suprapatellar joint effusion. Mild narrowing of the medial and lateral joint spaces. Small tricompartmental marginal osteophytes. No localized soft tissue swelling. XR/XR knee LT 2V IMPRESSION: Moderate degenerative changes of the right knee with mild degenerative changes of the left knee.
--- NOTE | ~2024-02-05 | XR_ITS ---
EXAMINATION: 1. X-RAY KNEE STANDING BILATERAL 2. LATERAL AND SUNRISE X-RAYS OF THE RIGHT KNEE. 3. LATERAL AND SUNRISE X-RAYS OF THE LEFT KNEE. CLINICAL INFORMATION: Bilateral knee pain COMPARISON: Bilateral knee x-rays March 01, 2021 TECHNIQUE: 3 views of each knee were obtained. FINDINGS: Right knee: No fracture or dislocation. Mild narrowing of the medial joint space height with moderate narrowing of the lateral joint space height. No suprapatellar joint effusion. Small to moderate-sized tricompartmental marginal osteophytes, predominantly involving the lateral compartment. No localized soft tissue swelling. Left knee: No fracture or dislocation. No suprapatellar joint effusion. Mild narrowing of the medial and lateral joint spaces. Small tricompartmental marginal osteophytes. No localized soft tissue swelling. XR/XR knee standing BI IMPRESSION: Moderate degenerative changes of the right knee with mild degenerative changes of the left knee.
== END 2024-02-05 07:33 | disposition home or self-care (01) ==
LOC: HO.HOSX 07:32
PROVIDERS: Visit Provider Orthopaedic Surgery
DX: M17.11 Unilateral primary osteoarthritis, right knee (principal); M25.562 Pain in left knee
CPT/HCPCS: 20610; 73560; 73565; 99212; J0665; J1100

== ENCOUNTER 2024-02-05 08:04 | Outpatient (AMB) | payer MEDICARE, SELFPAY ==
--- NOTE | 2024-02-05 08:18 | A.OFFVIS_ITS ---
Intake Vital Signs 02/05/24 08:27 Height 5 ft 7 in Weight 135 lb BMI 21.1 Intake Visit Reasons: OV-right knee injection-last injection 03/01/21 Intake Note: Philomena is a 73 year old female who presents today for a follow up of her right knee OA, last injection done 03/01/21. Patient reports that this last injection was very helpful, her pain began to return about one month ago. Hx of Osteoperosis, bone scan recently done in January Allergies diclofenac [From Voltaren] Allergy (Severe, Verified 02/05/24 08:23) Hives HPI OV-right knee injection-last injection 03/01/21 HPI Details Philomena is a 73 year old female who presents today for a follow up of her right knee OA, last injection done 03/01/21. Patient reports that this last injection was very helpful, her pain began to return about one month ago. She walks several miles every day. Hx of Osteoperosis, bone scan recently done in January [facility] Medical History Aortic regurgitation Osteoporosis Cerumen impaction Skin nodule Vitamin D deficiency Hearing loss Trigger finger of right hand Tremor Osteoarthritis, hand Murmur Andrade's esophagus Seasonal allergies GERD (gastroesophageal reflux disease) Hx of mitral valve prolapse Hyponatremia Surgical History Hx of colonoscopy History of esophagogastroduodenoscopy (EGD) History of right hip replacement Family History Father CHF (congestive heart failure) HTN (hypertension) Mother Rectal bleeding Maternal Grandfather Colon cancer Daughter Mental health disorder Bipolar 1 disorder Brother Substance use disorder Alcoholic Social History Household Members: None Housing: Condominium Alcohol intake: former Patient Tobacco Use Status: Never used Tobacco e-Cigarette/Vaping Use: Never Used Second Hand Smoke Exposure: No service: No Current occupational status: retired 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 Site was prepped using aseptic technique. Patient tolerated the procedure well. Primary Site: right knee Approach Used: anterolateral Coding - Large joint Procedure code (CPT) selection complete Results Reviewed Results Reviewed: I personally reviewed relevant radiographs. Valgus pattern OA right knee mod-severe, left knee mild Assessment & Plan Assessment & Plan (1) Localized osteoarthritis of right knee: Code(s): M17.11 - Unilateral primary osteoarthritis, right knee Plan: Right knee valgus OA. She is very functional. She walks >3 miles/ day. I injected her right knee. She may follow up PRN. Orders: Orders XR knee standing BI Today M25.569 - Pain in unspecified knee XR knee RT 2V Today M25.569 - Pain in unspecified knee XR knee LT 2V Today M25.569 - Pain in unspecified knee Coding Level of Care Code Est Pt Level 3 (56072) Diagnoses Localized osteoarthritis of right knee M17.11 CPT Codes Coding - Large joint: - Large joint ([id number])
[2024-02-05 08:27] VITALS: BMI 21.1
== END 2024-02-05 08:52 | disposition home or self-care (01) ==
PROVIDERS: PCP Internal Medicine; Visit Provider Orthopaedic Surgery
DX: M17.11 Unilateral primary osteoarthritis, right knee (principal)
CPT/HCPCS: 20610; 99213

== ENCOUNTER 2024-02-09 10:05 | Outpatient (AMB) | payer MEDICARE, SELFPAY ==
[2024-02-09 10:08] VITALS: BP 112/74; PULSE 62; O2SAT 96; BMI 20.8
--- NOTE | 2024-02-09 10:08 | MHC.PC.OV ---
Vital Signs 02/09/24 10:08 Height 5 ft 7 in Weight 133 lb BMI 20.8 BP 112/74 Blood Pressure Location Lt brachial Position Sitting Pulse 62 Pulse Source Pulse Oximeter Pulse Oximetry (%) 96 Oxygen Delivery Method Room Air Intake Visit Reasons: Follow up to discuss BD results Intake Note: Pt is here today for a follow up visit. to discuss Bone density results and treatment. Allergies diclofenac [From Voltaren] Allergy (Severe, Verified 02/09/24 10:16) Hives Medication List - Last Reconciled 02/09/24 by Idalmis Kyle MD acetaminophen (Tylenol Extra Strength) 500 mg PO Q6H PRN Bifidobacterium infantis (Align) 4 mg PO DAILY calcium carbonate (Calcium) 700 mg PO DAILY cetirizine (Zyrtec) 10 mg PO DAILY PRN cholecalciferol (vitamin D3) 50 mcg PO DAILY esomeprazole magnesium 20 mg PO DAILY magnesium 250 mg PO DAILY miscellaneous medical supply 2 ea miscellaneous DAILY hiwnyqewnhze-bldg-qtzhf acid 18-400 mg-mcg (Centrum Women) 1 tab PO DAILY Prolia (denosumab) 60 mg subcut [id number] simethicone (Gas Relief (simethicone)) 125 mg PO TID PRN Tobacco use date assessed: 01/03/24 HPI Follow up to discuss BD results HPI Details Patient presents to discuss osteoporosis. DEXA scan showed 6.8% decrease in total femur T-score to -3.3 compared to 2 years ago. Patient has been taking vitamin-D calcium supplement and exercising at least 3 times a week. PFSH Medical History Aortic regurgitation Osteoporosis Cerumen impaction Skin nodule Vitamin D deficiency Hearing loss Trigger finger of right hand Tremor Osteoarthritis, hand Murmur Andrade's esophagus Seasonal allergies GERD (gastroesophageal reflux disease) Hx of mitral valve prolapse Hyponatremia Surgical History Hx of colonoscopy History of esophagogastroduodenoscopy (EGD) History of right hip replacement Family History Father CHF (congestive heart failure) HTN (hypertension) Mother Rectal bleeding Maternal Grandfather Colon cancer Daughter Mental health disorder Bipolar 1 disorder Brother Substance use disorder Alcoholic Social History Household Members: None Housing: Condominium Alcohol intake: former Patient Tobacco Use Status: Never used Tobacco e-Cigarette/Vaping Use: Never Used Second Hand Smoke Exposure: No service: No Current occupational status: retired 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 Paolo Arenas, Silvana Seo, Gaurav Rasmussen and colleagues, with an educational christine from [employer]. Review of Systems Const All systems reviewed & are unremarkable except as noted in HPI and below Reports no additional complaints Eyes Reports no additional complaints ENT Reports no additional complaints Card Reports no additional complaints Resp Reports no additional complaints GI Reports no additional complaints Reports no additional complaints Physical exam (Primary Care) Vital Signs: Last Vital Signs Pulse 62 02/09/24 10:08 BP 112/74 02/09/24 10:08 Pulse Ox 96 02/09/24 10:08 Oxygen Delivery Method Room Air 02/09/24 10:08 BMI result Body Mass Index 20.8 Tobacco/Smoking Status: Tobacco use Status Tobacco use date assessed 01/03/24 02/09/24 10:17 Patient Tobacco Use Status Never used Tobacco 02/09/24 10:17 e-Cigarette/Vaping Use Never Used 02/09/24 10:17 Thrive Assessment: Date of Thrive Assessment Date Thrive assessed 01/03/24 02/09/24 10:17 Const General: no acute distress HENMT Head: Yes normal to inspection Neck Neck: Yes supple Resp Effort & Inspection: normal respiratory effort Auscultation: clear to auscultation bilaterally Cardio Rhythm: regular rhythm Heart sounds: S1 normal heart sound present and S2 normal heart sound present Assessment and Plan Assessment & Plan (1) Osteoporosis: Comment: DEXA 10/2021, T score 3.0 , unchanged for 2019, took Fosamax for 8 years in the past >7 yrs ago, DEXA 02/10 T score total femur -3.3, start Prolia 02/10 Code(s): M81.0 - Age-related osteoporosis without current pathological fracture Plan: For worsening osteoporosis Prolia q.6 months for 2 years will be started and repeat DEXA will be checked. Patient was advised to continue vitamin-D supplement and regular weight-bearing exercise Orders: Orders Complete Blood Count Auto Diff 6 Months M81.0 - Age-related osteoporosis without current pathological fracture Comprehensive Met. Panel 6 Months M81.0 - Age-related osteoporosis without current pathological fracture Medications: New Prolia (denosumab) 60 mg subcut [id number] 2 mL 0RF NS Coding Level of Care Code Est Pt Level 3 (97191) Diagnoses Osteoporosis M81.0
== END 2024-02-09 15:46 | disposition home or self-care (01) ==
PROVIDERS: PCP Internal Medicine; Visit Provider Internal Medicine
DX: M81.0 Age-related osteoporosis without current pathological fracture (principal)
CPT/HCPCS: 99213

== ENCOUNTER 2024-02-13 08:22 | Outpatient (AMB) | payer MEDICARE, SELFPAY ==
--- NOTE | 2024-02-13 08:40 | AM.OFFVISNUR ---
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 Allergies diclofenac [From Voltaren] Allergy (Severe, Verified 02/13/24 08:40) Hives Medication List - Last Reconciled 02/13/24 by Denisha Eddy RN acetaminophen (Tylenol Extra Strength) 500 mg PO Q6H PRN Bifidobacterium infantis (Align) 4 mg PO DAILY calcium carbonate (Calcium) 700 mg PO DAILY cetirizine (Zyrtec) 10 mg PO DAILY PRN cholecalciferol (vitamin D3) 50 mcg PO DAILY esomeprazole magnesium 20 mg PO DAILY magnesium 250 mg PO DAILY miscellaneous medical supply 2 ea miscellaneous DAILY dgwoszicojhw-ufnd-zbkvp acid 18-400 mg-mcg (Centrum Women) 1 tab PO DAILY Prolia (denosumab) 60 mg subcut [id number] simethicone (Gas Relief (simethicone)) 125 mg PO TID PRN Is last menstrual period known: No Post menopausal: Yes Patient : No Do you need a note to return to daycare/school/sports/work: No Office Meds Prolia 60 mg/mL subcutaneous syringe Performing Provider: Idalmis Kyle MD [place] [facility] [facility] Administered by: Denisha Eddy RN on 02/13/24 08:41 Dose Route Admin Location Dispensed Lot Number Expiration Date [employer]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
== END 2024-02-13 09:59 | disposition home or self-care (01) ==
PROVIDERS: PCP Internal Medicine; Visit Provider Internal Medicine
DX: M81.0 Age-related osteoporosis without current pathological fracture (principal)
CPT/HCPCS: 96372; J0897

== ENCOUNTER 2024-06-10 09:07 | Outpatient (AMB) | payer MEDICARE, SELFPAY ==
--- NOTE | 2024-06-10 09:16 | MHC.OFFVIS ---
Vital Signs 06/10/24 09:19 Height 5 ft 7 in Weight 130 lb 1.164 oz BMI 20.4 BP 134/55 L Blood Pressure Location Lt brachial Position Sitting Pulse 58 Intake Visit Reasons: 1 yr f/u Intake Note: Philomena presents in the office as a 1 year follow up. CC: She states that she always has an issue with constipation - the past 6/8 weeks she has been dealing with it extra. Allergies diclofenac [From Voltaren] Allergy (Severe, Verified 06/10/24 09:21) Hives HPI HPI 1 yr f/u: Details: 73 yr old female here for f/u RECAP: index visit 10/24/19 She had burning sensation and pressure in chest since [place] after moving from [place] if talks or sings her voice starts to feel her voice husky not worse with exertion or food either she tried OTC omeprazole and didn;t help, tried changing diet no difference she has stress test coming up also tried flonase and anti histamine, no better she denied dysphagia appetite is normal weight is steady, minor loss of 8 pounds with moving denies diarrhea she does have hx of polyps and has had 6 or so colonoscopies, usu gets 3-5 yr (per note from last provider, next colonoscopy due 2019--polyp removed in 2014--5 mm adenoma) she cut down pantoprazole to OD and doing well TESTS: HGB: 11 g/dl (mild anemia) EGD 10/2019--bulbar duodenitis, gastritis, GEJ erythema bx with possible barretts, gastritis and intestinal metaplasia, mild villous blunting of dudoenum and foevolar metaplasia colonoscopy--04/2020--no polyps noted H pylori breath test 11/2019---negative EGD 11/2020--chronic inactive inflammation at GEJ, no barretts mentioned EGD 10/2022 for gastric mapping: ni intestinal metaplasia, chronic focal active inflammation of GEJ EGD 2022-- no IM, no barretts, mid inflammation, LES was lax, small hiatal hernia INTERIM: she is well, she is taking PPI daily, with Mv and vit D daily no nausea or vomiting appetite is good mild constipation she has osteoporosis and getting shots EXAM: GENERAL: The patient is well developed and nontoxic. VITAL SIGNS:see workflow HEENT: Nonicteric sclerae, PERRLA, EOMI. Oropharynx clear. Moist mucous membranes. Conjunctivae appear well perfused. No thyroid mass. bruit left side of neck (followed by PCP) CHEST: Chest wall is nontender. HEART: Regular rate and rhythm with ESM aortic area LUNGS: Clear to auscultation bilaterally. ABDOMEN: Soft, positive bowel sounds, nontender, no organomegaly.no flank tenderness SKIN: No rash, no excessive bruising, petechiae, or purpura. NEUROLOGIC: Cranial nerves II-XII intact without motor/sensory deficit. MS: OA both hands Assessments 1. GERD- with chronic inflammation at GEJ, no clinical symptoms 3. Anemia with stable HGB--chronic PLAN: 1/ cont esomeprazole 20 mg, maybe repeat EGD in 1-2 yrs 2/ cont with Vit d, mag and MV supplements as doing, check labs next time 3/ given high fiber diet leaflet, also if ongoing sx then can use linalcotide PFSH Medical History Aortic regurgitation Osteoporosis Cerumen impaction Skin nodule Vitamin D deficiency Hearing loss Trigger finger of right hand Tremor Osteoarthritis, hand Murmur Andrade's esophagus Seasonal allergies GERD (gastroesophageal reflux disease) Hx of mitral valve prolapse Hyponatremia Surgical History Hx of colonoscopy History of esophagogastroduodenoscopy (EGD) History of right hip replacement Family History Father CHF (congestive heart failure) HTN (hypertension) Mother Rectal bleeding Maternal Grandfather Colon cancer Daughter Mental health disorder Bipolar 1 disorder Brother Substance use disorder Alcoholic Social History Household Members: None Housing: Condominium Alcohol intake: former Patient Tobacco Use Status: Never used Tobacco e-Cigarette/Vaping Use: Never Used Second Hand Smoke Exposure: No service: No Current occupational status: retired 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
[2024-06-10 09:19] VITALS: BP 134/55; PULSE 58; BMI 20.4
== END 2024-06-10 09:58 | disposition home or self-care (01) ==
PROVIDERS: PCP Internal Medicine; Visit Provider Internal Medicine Gastroenterology
DX: K59.01 Slow transit constipation (principal)
CPT/HCPCS: 99213

== ENCOUNTER → 2024-06-10 09:07 | Outpatient (BNVA) | payer MEDICARE, SELFPAY | PROVIDERS: PCP Internal Medicine; Visit Provider Internal Medicine Gastroenterology | DX: K59.01 Slow transit constipation (principal) | CPT/HCPCS: 99212 ==

== ENCOUNTER 2024-08-02 06:37 | Outpatient (REF) | payer MEDICARE, SELFPAY ==
[2024-08-02 10:41] LABS: Appearance Urine Clear; Color Urine Yellow; Glucose Urine UA Negative (Negative); Leukocyte Esterase Urine Negative (Negative); Nitrite Urine Negative (Negative); Specific Gravity - Urine 1.015 (1.005-1.025); UMIC TRIGGER UA YES; Urine Blood Trace (Negative); Urine Ketones Negative (Negative); Urine Protein Negative (Neg-Trace)
[2024-08-02 10:47] LABS: Bacteria Urine None Seen (None Seen); Hyaline Casts Urine 0-2 /LPF (0-2); Squamous Epithelial Cell Urine 0-2 /HPF (0-2); WBC Urine 0-5 /HPF (0-5)
[2024-08-02 11:00] LABS: Alanine Aminotransferase 21 U/L (0-31); Albumin Level 4.2 g/dL (3.5-5.0); Alkaline Phosphatase 52 U/L (39-117); Anion Gap 11 (12-20); Aspartate Amino Transferase 21 U/L (5-31); Bilirubin Total 0.4 mg/dL (0.0-1.0); Blood Urea Nitrogen 16 mg/dL (9-16); Calcium 9.5 mg/dL (8.4-10.2); Carbon Dioxide 26 mmol/L (22-29); Chloride 102 mmol/L (96-108); Cholesterol 202 mg/dL (<200); Estimated Glomerular Filt Rate > 60; Glucose Fasting 87 mg/dL (60-99); Glucose Random 87 mg/dL (60-115); HDL Cholesterol 88 mg/dL (>40); LDL Cholesterol Calculated 103 mg/dL (<100); Potassium 4.2 mmol/L (3.3-5.1); Sodium 135 mmol/L (135-145); Total Protein 6.7 g/dL (6.5-8.0); Triglycerides 55 mg/dL (<150)
[2024-08-02 11:20] LABS: Vitamin D 25-OH Total 69.6 ng/mL (>30)
[2024-08-02 11:21] LABS: Folate 14.6 ng/mL (> or = 4.0); Vitamin B12 892 pg/mL (200-900)
[2024-08-02 11:23] LABS: Baso%MD 0.7 %; Eos%MD 2.3 %; Hematocrit 34.7 % (37.0-47.0); Hemoglobin 11.5 g/dl (12.0-16.0); IG%MD 0.3 %; Mean Corpuscular HGB Conc 33.1 g/dl (31.0-35.0); Mean Corpuscular Hemoglobin 30.7 pg (27.0-33.0); Mean Corpuscular Volume 92.5 fL (80.0-98.0); Mean Platelet Volume 9.9 fL (9.4-12.3); Mono%MD 8.7 %; Platelet Count 264 X10*3/uL (160-400); Red Blood Count 3.75 X10*6/uL (4.20-5.50); White Blood Count 6.9 X10*3/uL (4.8-10.8)
[2024-08-02 11:52] LABS: Atypical Lymph Absolute Manual 0.1 x10*3/uL; Atypical Lymphs Percent Manual 1 % (0-6); Band Neutrophils Percent 0 % (3-5); Eosinophils Absolute Manual 0.1 X10*3/uL (0.0-0.4); Eosinophils Percent Manual 1 % (0-4); Lymphocytes Absolute Manual 2.5 X10*3/uL (1.2-4.9); Lymphocytes Percent Manual 36 % (20-40); Monocytes Absolute Manual 0.2 X10*3/uL (0.1-1.2); Monocytes Percent Manual 3 % (2-11); Neutrophils Absolute Manual 4.1 X10*3/uL (2.0-8.3); Neutrophils Percent Manual 59 % (45-73)
[2024-08-02 11:53] LABS: Acanthocytes 1+ (0-2) /OIF; Burr Cells 2+ (3-5) /OIF; Platelet Estimate NORMAL (NORMAL); Platelet Morphology Comment NORMAL; RBC Morphology NOTED
[2024-08-06 15:34] LABS: IgA 92 mg/dL (70-320); IgG 855 mg/dL (600-1540); IgM 242 mg/dL (50-300)
== END 2024-08-02 06:38 | disposition home or self-care (01) ==
LOC: HO.HMGCLDS 06:37
PROVIDERS: PCP Internal Medicine; Visit Provider Internal Medicine
DX: Z00.00 Encounter for general adult medical examination without abnormal findings (principal); M81.0 Age-related osteoporosis without current pathological fracture; E55.9 Vitamin D deficiency, unspecified; E87.1 Hypo-osmolality and hyponatremia; D64.9 Anemia, unspecified
CPT/HCPCS: 36415; 80053; 80061; 81001; 82306; 82607; 82746; 82784; 85007; 85025; 85027; 86334

== ENCOUNTER 2024-08-15 15:46 | Outpatient (AMB) | payer MEDICARE, SELFPAY ==
--- NOTE | 2024-08-15 16:03 | AM.OFFVISNUR ---
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
== END 2024-08-15 16:08 | disposition home or self-care (01) ==
LOC: HO.HMCC 15:47
PROVIDERS: PCP Internal Medicine; Visit Provider Internal Medicine
DX: M81.0 Age-related osteoporosis without current pathological fracture (principal)

== ENCOUNTER → 2024-08-15 15:46 | Outpatient (BNVA) | payer MEDICARE, SELFPAY | PROVIDERS: PCP Internal Medicine; Visit Provider Internal Medicine | DX: M81.0 Age-related osteoporosis without current pathological fracture (principal) | CPT/HCPCS: 96372; J0897 ==

== ENCOUNTER 2024-08-18 15:06 | Emergency (ER) | payer MEDICARE, SELFPAY ==
--- NOTE | ~2024-08-18 | XR_ITS ---
EXAMINATION: XR WRIST, RIGHT CLINICAL INFORMATION: Pain at base of thumb and radial wrist. Patient reports fall. COMPARISON: X-ray of the right hand January 2021 TECHNIQUE: PA, lateral, and oblique views of the right wrist. FINDINGS: Severe osteoarthritis of the 1st carpometacarpal joint with marked joint space narrowing and large loose body or fractured osteophyte radially. This is unchanged Widening of the scapholunate distance patient question of scapholunate tear. Carpal cyst within the proximal scaphoid and radial lunate. Slight concavity of the distal ulnar styloid unchanged perhaps related to prior impaction or subtle erosion. Mild osteoarthritis of the 1st metacarpophalangeal joint Soft tissue prominence only to the ulnar styloid could reflect normal variation or soft tissue contusion. XR/XR wrist RT w scaphoid IMPRESSION: No Acute abnormality 1. Advanced osteoarthritis of the 1st carpometacarpal joint unchanged. 2. Widening of the scapholunate distance question of scapholunate tear. This is unchanged 3. Carpal cyst. 4. Slight concavity of the distal ulnar styloid unchanged perhaps related to prior impaction or subtle erosion. Electronically signed by: Ton Alexandre MD 08/18/2024 04:55 PM EDT
--- NOTE | 2024-08-18 15:46 | ED.UPPEXIN ---
HPI - Extremity Injury (Upper) General Chief Complaint: Extremity Injury, Upper Stated Complaint: wrist inj s/p fall Time Seen by Provider: 08/18/24 15:48 Source: patient Mode of arrival: ambulatory Limitations: no limitations History of Present Illness HPI narrative: Patient is a 74-year-old female right-hand dominant who presents emergency department for evaluation of a mechanical slip and fall. Landed onto her right wrist, does not recall whether it with an outstretched hand or if it was the back of the hand that took the impact. Has localized swelling and pain to the base of the thumb as well as the dorsal wrist along the radial aspect with swelling. Denies associated head strike or loss of consciousness. No use of anticoagulants. No numbness or tingling Related Data Home Medications ?Medication ?Instructions ?Recorded ?Confirmed Bifidobacterium infantis 4 mg 4 mg PO DAILY 11/11/20 02/13/24 capsule (Align) magnesium 250 mg tablet 250 mg PO DAILY 11/11/20 02/13/24 multivitamin-ferrous 1 tab PO DAILY 11/11/20 02/13/24 fumarate-folic acid 18 mg-400 mcg tablet (Centrum Women) acetaminophen 500 mg tablet 500 mg PO Q6H PRN Pain 05/18/21 02/13/24 (Tylenol Extra Strength) cholecalciferol (vitamin D3) 50 50 mcg PO DAILY 12/31/21 02/13/24 mcg (2,000 unit) capsule calcium carbonate (Calcium 600) 700 mg PO DAILY 06/06/22 02/13/24 diphenhydramine-phenylephrine 25 tab PO 06/10/24 mg-10 mg tablet (Benadryl Allergy Plus Congestion) Previous Rx's ?Medication ?Instructions ?Recorded miscellaneous medical supply 2 ea miscellaneous DAILY #2 ea 07/06/21 esomeprazole magnesium 20 mg 20 mg PO DAILY #90 caps 03/27/24 capsule,delayed release simethicone 125 mg chewable tablet 125 mg PO TID PRN for abdominal 07/23/24 (Gas Relief Extra Strength) pain #90 tabs Prolia 60 mg/mL subcutaneous 60 mg subcut [id number] #2 mL 08/05/24 syringe (denosumab) Allergies Allergy/AdvReac Type Severity Reaction Status Date / Time diclofenac [From Voltaren] Allergy Severe Hives Verified 08/18/24 15:50 Review of Systems Review of Systems: Yes all other systems are reviewed and are negative [facility] Past Medical History Attestation statement: The following information was validated with the patient. Source: old records reviewed Medical History Aortic regurgitation Osteoporosis Cerumen impaction Skin nodule Vitamin D deficiency Hearing loss Trigger finger of right hand Tremor Osteoarthritis, hand Murmur Andrade's esophagus Seasonal allergies GERD (gastroesophageal reflux disease) Hx of mitral valve prolapse Hyponatremia Surgical History Hx of colonoscopy History of esophagogastroduodenoscopy (EGD) History of right hip replacement Family History Family History Father CHF (congestive heart failure) HTN (hypertension) Mother Rectal bleeding Maternal Grandfather Colon cancer Daughter Mental health disorder Bipolar 1 disorder Brother Substance use disorder Alcoholic Social History Social History Household Members: None Housing: Condominium Alcohol intake: former Patient Tobacco Use Status: Never used Tobacco e-Cigarette/Vaping Use: Never Used Second Hand Smoke Exposure: No Advance Directives: No Advance Directives Information Provided: No Do you have a plan to hurt others: No Plan service: No Current occupational status: retired 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 No acute distress.?Normal affect. Head: Normocephalic, atraumatic Eyes: Pupils equal, round and reactive to light.? EOMI. No nystagmus Neck: Normal inspection.? Neck supple.? No midline cervical spine tenderness, step-offs, deformities? CVS: Heart sounds normal. Normal heart rate and rhythm.? Pulses normal.?? Respiratory: No respiratory distress.? Lung sounds clear to auscultation bilaterally??? Skin: Skin warm and dry.? Normal skin color.? Extremities: Localized swelling and ecchymosis at the base of the right thumb and volar wrist with mild tenderness upon palpation of the anatomical snuffbox. Decreased AROM to the right wrist. Full range of motion to the digits. 2+ radial pulse Neuro: Moves all extremities spontaneously. Sensation intact bilaterally. No focal neuro deficits. Ambulates with normal steady gait. Medical Decision Making Medical Decision Making MDM Narrative: Patient is a 74-year-old female who presents emergency department for evaluation of mechanical trip and fall with resultant right wrist pain as per HPI. Right upper extremity is neurovascularly intact distally, has tenderness upon palpation of the anatomical snuffbox with decreased AROM, XR to be obtained to exclude fracture, lower suspicion for dislocation at this time. A possibly be a sprain/hematoma. Discussed with patient conservative treatment irregardless. There was no reported head strike or loss consciousness, she is not on anticoagulants, I have a low suspicion for any ICH SDH, no indication for head CT at this time. XR without evidence of acute fracture, given her advanced arthritic changes, she was placed wrist splint, advised outpatient follow-up with primary care doctor for persistent pain or symptoms. Discussed conservative treatment, rest, ice, elevation Differential Diagnosis Differential Diagnoses: The differential diagnosis associated with the presentation includes (See narrative above) Independent Interpretation I performed an independent interpretation of an: Plain X-Ray (No acute fracture) Radiology Impression Discussion of test interpretation with radiology: I have reviewed the radiologist's reading. Radiologist Impression: XR/XR wrist RT w scaphoid IMPRESSION: No Acute abnormality 1. Advanced osteoarthritis of the 1st carpometacarpal joint unchanged. 2. Widening of the scapholunate distance question of scapholunate tear. This is unchanged 3. Carpal cyst. 4. Slight concavity of the distal ulnar styloid unchanged perhaps related to prior impaction or subtle erosion. External Record Review External record reviewed: Outpatient record Prescription Management I considered prescription management with: Pain Medication Discharge Plan Discharge Clinical Impression: Right wrist sprain Qualifiers: Encounter type: initial encounter Qualified Code(s): S63.501A - Unspecified sprain of right wrist, initial encounter Patient Disposition: Home, Self-Care Instructions: Wrist Sprain (ED), R.I.C.E. Treatment (ED) Prescriptions: No Action miscellaneous medical supply Misc 2 ea miscellaneous DAILY Qty: 2 0RF Rx Instructions: Ulnar deviation splints for bilateral hands esomeprazole magnesium 20 mg capsule,delayed release(DR/EC) 20 mg PO DAILY Qty: 90 2RF simethicone [Gas Relief Extra Strength] 125 mg tablet,chewable 125 mg PO TID PRN (Reason: for abdominal pain) Qty: 90 3RF magnesium 250 mg Tablet 250 mg PO DAILY Align 4 mg Capsule 4 mg PO DAILY Centrum Women 18-400 mg-mcg Tablet 1 tab PO DAILY calcium carbonate [Calcium 600] 600 mg calcium (1,500 mg) tablet 700 mg PO DAILY Prolia 60 mg/mL syringe 60 mg subcut [id number] Qty: 2 0RF acetaminophen [Tylenol Extra Strength] 500 mg tablet 500 mg PO Q6H PRN (Reason: Pain) cholecalciferol (vitamin D3) 50 mcg (2,000 unit) capsule 50 mcg PO DAILY Benadryl Allergy Plus Congest 25-10 mg tablet PO Referrals: Idalmis Kyle MD [Primary Care Provider] - Print Language: Sami
[2024-08-18 15:48] VITALS: BP 138/70; PULSE 57; RESP 18; TEMP 36.8; O2SAT 97; BMI 20.3
[2024-08-18 17:26] VITALS: BP 138/70; PULSE 57; RESP 18; TEMP 36.8; O2SAT 97
== END 2024-08-18 17:27 | disposition home or self-care (01) ==
PROVIDERS: Emergency Provider Emergency Medicine Emergency Medical Services; PCP Internal Medicine
DX: S63.501A Unspecified sprain of right wrist, initial encounter (principal); W01.0XXA Fall on same level from slipping, tripping and stumbling without subsequent striking against object, initial encounter; Y93.89 Activity, other specified; Y92.89 Other specified places as the place of occurrence of the external cause; Y99.8 Other external cause status; Z79.899 Other long term (current) drug therapy
CPT/HCPCS: 73110; 99282; 99283

== ENCOUNTER 2024-09-24 08:03 | Outpatient (AMB) | payer MEDICARE, SELFPAY ==
--- NOTE | 2024-09-24 08:09 | MHC.PC.OV ---
Vital Signs 09/24/24 08:16 Height 5 ft 7 in Weight 135 lb BMI 21.1 BP 120/66 Blood Pressure Location Rt brachial Position Sitting Pulse 60 Pulse Source Pulse Oximeter Pulse Oximetry (%) 100 Oxygen Delivery Method Room Air Intake Visit Reasons: Follow up wrist pain Intake Note: Pt is here today for a follow up visit on R wrist pain. Allergies diclofenac [From Voltaren] Allergy (Severe, Verified 09/24/24 08:17) Hives Medication List - Last Reconciled 09/24/24 by Idalmis Kyle MD acetaminophen (Tylenol Extra Strength) 500 mg PO Q6H PRN Bifidobacterium infantis (Align) 4 mg PO DAILY calcium carbonate (Calcium 600) 700 mg PO DAILY cholecalciferol (vitamin D3) 50 mcg PO DAILY diphenhydramine-phenylephrine 25-10 mg (Benadryl Allergy Plus Congestion) tabs PO esomeprazole magnesium 20 mg PO DAILY magnesium 250 mg PO DAILY miscellaneous medical supply 2 ea miscellaneous DAILY ihpoaqxsniie-yndl-cdslm acid 18-400 mg-mcg (Centrum Women) 1 tab PO DAILY Prolia (denosumab) 60 mg subcut [id number] NS simethicone (Gas Relief Extra Strength) 125 mg PO TID PRN Tobacco use date assessed: 09/24/24 Fall risk assessment: 1 Fall in past year Last assessed Fall Risk: 09/24/24 Dental Screening Dental Screen Date: 01/03/24 HPI Follow up wrist pain HPI Details Patient complains of soft tissue swelling of the dorsum of right hand for a few weeks. The patient fell down and injured her right wrist about 5 weeks ago. She had a negative x-ray and wore a wrist splint for a few weeks. Patient denies any pain in the wrist and has been using it without difficulty. [facility] Medical History Aortic regurgitation Osteoporosis Cerumen impaction Skin nodule Vitamin D deficiency Hearing loss Trigger finger of right hand Tremor Osteoarthritis, hand Murmur Andrade's esophagus Seasonal allergies GERD (gastroesophageal reflux disease) Hx of mitral valve prolapse Hyponatremia Surgical History Hx of colonoscopy History of esophagogastroduodenoscopy (EGD) History of right hip replacement Family History Father CHF (congestive heart failure) HTN (hypertension) Mother Rectal bleeding Maternal Grandfather Colon cancer Daughter Mental health disorder Bipolar 1 disorder Brother Substance use disorder Alcoholic Social History Household Members: None Housing: Condominium Alcohol intake: former Patient Tobacco Use Status: Never used Tobacco e-Cigarette/Vaping Use: Never Used Second Hand Smoke Exposure: No service: No Current occupational status: retired Current occupation: [employer] Current occupational exposures/hazards: No Cognitive needs: No Hearing needs: No Vision needs: No Questionnaire PHQ-9 Over the last 2 weeks, how often have you been bothered by any of the following problems? 1. Little interest or pleasure in doing things: not at all 2. Feeling down, depressed, or hopeless: not at all 3. Trouble falling or staying asleep, or sleeping too much: not at all 4. Feeling tired or having little energy: not at all 5. Poor appetite or overeating: not at all 6. Feeling bad about yourself - or that you are a failure or have let yourself or your family down: not at all 7. Trouble concentrating on things, such as reading the newspaper or watching television: not at all 8. Moving or speaking so slowly that other people could have noticed. Or the opposite - being so fidgety or restless that you have been moving around a lot more than usual: not at all 9. Thoughts that you would be better off or of hurting yourself in some way: not at all Total score: 0 Depression Screening Interpretation: Negative Depression Screening Done: Yes 38004 - PHQ-9 Billing: Yes Source: Developed by Drs. Paolo Arenas, Silvana Seo, Gaurav Rasmussen and colleagues, with an educational christine from [employer]. Thrive Questionnaire Date Thrive assessed: 09/23/24 I am a: Patient What is your living situation today?: I have a steady place to live Within the past 12 months, did the food you bought not last and you didn't have the money to get more?: Never true Within the past 12 months, did you worry whether your food would run out before you got money to buy more?: Never true Do you have trouble paying for medicines?: No Do you have trouble getting transportation to medical appointments?: No Do you have trouble paying your heating and electricity bill?: No Do you have trouble taking care of your child, family member or friend?: No Do you have trouble with day-to-day activities such as bathing, preparing meals, shopping, managing finances, etc.?: No Are you currently unemployed and looking for a job?: No Are you interested in more education?: No Please select the resources that you would like help with: None Currently or been in a relationship where the following occur: No concerns reported THRIVE Score: 0 AUDIT C Alcohol Use Questionnaire (AUDIT-C) 1. How often do you have a drink containing alcohol?: Never Total Score: 0 ANNE-7 AMB Questionnaire ANNE-7 Date ANNE - 7 assessed: 09/24/24 Feeling nervous, anxious, or on edge: 0 = Not at all Not being able to stop or control worryin = Not at all Worrying too much about different things: 0 = Not at all Trouble relaxin = Not at all Being so restless that it is hard to sit still: 0 = Not at all Becoming easily annoyed or irritable: 0 = Not at all Feeling afraid as if something awful might happen: 0 = Not at all Total ANNE-7 score (0-4 normal; 5-9 mild; 10-14 moderate; 15-21 severe): 0 Source: Developed by Drs. Paolo Arenas, Silvana Seo, Gaurva Rasmussen and colleagues, with an educational christine from [employer]. ANNE-7 Assessment Billing ANNE-7 Assessment Tool: ANNE-7 Assessment 41990 Review of Systems Const All systems reviewed & are unremarkable except as noted in HPI and below Eyes Reports no additional complaints ENT Reports no additional complaints Card Reports no additional complaints Resp Reports no additional complaints GI Reports no additional complaints Reports no additional complaints Physical exam (Primary Care) Vital Signs: Last Vital Signs Pulse 60 09/24/24 08:16 BP 120/66 09/24/24 08:16 Pulse Ox 100 09/24/24 08:16 Oxygen Delivery Method Room Air 09/24/24 08:16 BMI result Body Mass Index 21.1 Tobacco/Smoking Status: Tobacco use Status Tobacco use date assessed 09/24/24 09/24/24 08:20 Patient Tobacco Use Status Never used Tobacco 09/24/24 08:10 e-Cigarette/Vaping Use Never Used 09/24/24 08:10 PHQ-9: PHQ-9 Score PHQ-9: Total score 0 09/24/24 08:20 Depression Screening Interpretation: Negative Thrive Assessment: Date of Thrive Assessment Date Thrive assessed 09/23/24 09/24/24 08:10 Currently or been in a relationship where the following occur: No concerns reported Const General: no acute distress Resp Effort & Inspection: normal respiratory effort Auscultation: clear to auscultation bilaterally Cardio Rhythm: regular rhythm Heart sounds: S1 normal heart sound present and S2 normal heart sound present Extrem Other: 3 cm x 2 cm soft tissue swelling on the dorsum of right hand, no erythema warmth or tenderness, right wrist with full range of motion Coding Level of Care Code Est Pt Level 3 (04317) Diagnoses Localized swelling on right hand R22.31 Additional Codes ANNE-7 Assessment Billing - ANNE-7 Assessment Tool: ANNE-7 Assessment 02640 ([id number]) Assessment & Plan Assessment & Plan (1) Localized swelling on right hand: Code(s): R22.31 - Localized swelling, mass and lump, right upper limb Category: Medical Plan: Obtain ultrasound to evaluate Orders: Orders US extremity nonvascular leiva Today R22.31 - Localized swelling, mass and lump, right upper limb
[2024-09-24 08:16] VITALS: BP 120/66; PULSE 60; O2SAT 100; BMI 21.1
== END 2024-09-24 08:55 | disposition home or self-care (01) ==
LOC: HO.HMCC 08:03
PROVIDERS: PCP Internal Medicine; Visit Provider Internal Medicine
DX: R22.31 Localized swelling, mass and lump, right upper limb (principal)

== ENCOUNTER → 2024-09-24 08:03 | Outpatient (BNVA) | payer MEDICARE, SELFPAY | PROVIDERS: PCP Internal Medicine; Visit Provider Internal Medicine ==

== ENCOUNTER 2024-09-24 09:10 | Outpatient (REF) | payer MEDICARE, SELFPAY ==
--- NOTE | ~2024-09-24 | US_ITS ---
EXAMINATION: US RIGHT HAND CLINICAL INFORMATION: Palpable lump at the base of the right arm superficially, at the dorsal surface. COMPARISON: Radiograph from August 18, 2024 TECHNIQUE: Targeted sonographic evaluation FINDINGS: Sonographic evaluation of area of palpable lump of area of palpable lump demonstrate focal area of fluid collection surrounding superficial tendon suggestive for posttraumatic tenosynovitis. US/US extremity nonvascular leiva IMPRESSION: Posttraumatic tenosynovitis. Electronically signed by: Teddy Pillai MD 09/25/2024 08:55 AM EST
== END 2024-09-24 09:11 | disposition home or self-care (01) ==
LOC: HO.HMGCX 09:10
PROVIDERS: PCP Internal Medicine; Visit Provider Internal Medicine
DX: R22.31 Localized swelling, mass and lump, right upper limb (principal)
CPT/HCPCS: 76882; 96127; 99212

== ENCOUNTER 2024-10-22 08:44 | Outpatient (REF) | payer MEDICARE, SELFPAY | END 2024-10-22 08:45 | disposition home or self-care (01) | LOC: HO.SH 08:44 | PROVIDERS: Visit Provider Internal Medicine | DX: Z01.118 Encounter for examination of ears and hearing with other abnormal findings (principal); H90.3 Sensorineural hearing loss, bilateral | CPT/HCPCS: 92552; 92556 ==

== ENCOUNTER 2024-10-22 09:28 | Outpatient (REF) | payer SELFPAY | END 2024-10-22 09:29 | disposition home or self-care (01) | LOC: HO.HAP 09:28 | PROVIDERS: Visit Provider Internal Medicine | DX: Z46.1 Encounter for fitting and adjustment of hearing aid (principal); H90.3 Sensorineural hearing loss, bilateral | CPT/HCPCS: 92593 ==

== ENCOUNTER 2024-11-19 08:01 | Outpatient (AMB) | payer MEDICARE, SELFPAY ==
--- OUTSIDE RECORDS SUMMARY | 2024-11-19 08:03 | XMS_ITS ---
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 Generated for Printi yazan/Pamela/eTransmitting on:?11/19/2024 08:03 AM EST
--- OUTSIDE RECORDS SUMMARY | 2024-11-19 08:03 | XMS_ITS ---
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 Name Role Phone Idalmis Kyle MD Primary Care Provider Greg Martinez Unavailable [phone] Allergies Allergen (clinical drug ingredient) Drug/Non Drug Allergy documented on EMR Reaction Allergy Type Onset Date Status Angelica koroma Drug Allergy Active REASON FOR VISIT Last PCP visit 01/03/24, Foot pain Medications Medication SIG (Take, Route, Frequency, Duration) Notes Start Date End Date Status ZyrTEC prn Active Vitamin D3 Active Align Active Simethicone Active Benadryl prn Active Flaxseed Oil Active Prolia 60 MG/ML as directed Subcutaneous Active Magnesium 200 MG 2 tablets with a seamus l Orally Once a day Active Esomeprazole Magnesium 20 MG 1 capsule Orally Once a day Active Centrum Women Active Calcium Active Social History Tobacco Use: Social History Observation Description Date Details (start date - stop date) Never Smoker NA - NA Tobacco Use/Smoking Question Answer Notes Are you a: nonsmoker Alcohol Screen Question Answer Notes Did you have a drink containing alcohol in the p ast year? No Points 0 Interpretation Negative Tobacco use other than smoking: Question Answer Notes Are you an other tobacco user? No Problems Problem Type SNOMED Code ICD Code Onset Dates Problem Status W/U Status Risk Notes Problem Acquired hallux valgus (70718392) Hallux valgus (acquired), left foot (M20.12) Active confirmed Problem Acquired hallux valgus (77476043) Hallux valgus (acquired), right foot (M20.11) Active confirmed Problem Acquired hammer toe of right foot (4788072933523 105) Other hammer toe(s) (acquired), right foot (M20.41) Active confirmed Problem Acquired hammer toe of left foot (0617140230589 103) Other hammer toe(s) (acquired), left foot (M20.42) Active confirmed Vital Signs Height 5ft 6.3in in 02/20/2024 Weight 135 lbs 02/20/2024 BMI 21.59 kg/m2 02/20/2024 Encounters Encounter Location Date Provider Diagnosis [facility] [place] [address] [facility] [address] [place] [address] 02/20/2024 Greg West Hallux valgus (acquired), left foot M20.12 ; Hallux valgus (acquired), right foot M20.11 ; Other hammer toe(s) (acquired), right foot M20.41 ; Other hammer toe(s) (acquired), left foot M20.42 and Neuralgia and neuritis, unspecified M79.2 Assessments Encounter Date Diagnosis (ICD Code) Assessment Notes Treatment Notes Treatment Clinical Notes Section Notes 02/20/2024 Hallux valgus (acquired), left foot (ICD-10 - M20.12) 02/20/2024 Hallux valgus (acquired), right foot (ICD-10 - M20.11) 02/20/2024 Other hammer toe(s) (acquired), right foot (ICD-10 - M20.41) 02/20/2024 Other hammer toe(s) (acquired), left foot (ICD-10 - M20.42) 02/20/2024 Neuralgia and neuritis, unspecified (ICD-10 - M79.2) Plan Of Treatment Pending Test Test Name Order Date X ray : Foot, left 3V 02/20/2024 X ray : Foot, right 3V 02/20/2024 Next Appt Details Follow Up: prn, Reason: Progress Notes * Philomena GÓMEZDOB: [birth year] (73 yo F)Acc No.[id number]:02/20/2024 Progress Notes Patient:?Philomena Gómez Provider:?Greg West DPM :1950???Age:73 Y???Sex:Female D ate:02/20/2024 Address:[address], [id number] Pcp:Idalmis Kyle MD Subjective: * Chief Complaints: * ???Last PCP visit 01/03/24Foo t pain * HPI: ???Foot Pain:?Nature:?tingling, numbness.?Location?Great toe joint, B/L, L>R.?Duration:?several years.?Onset/Cause:?gradual.?Course:?worse, intermittent.?Aggrevated:?any pressure.?Treatments:?change in shoes, custom orthoses.?Quality/Severity?moderate.? * ROS:?General/Constitutional:?Nausea?denies, denies.?Vomiting?denies, denies.?Hunger Thirst?denies, denies.?Loss appetite?denies, denies.?Chills?denies, denies.?Fatigue?denies, denies.?Fever?denies, denies.?Night Sweats denies, denies.?Unexplained weight loss?denies, denies.?Unexplained weight gain?denies.?Ophthalmologic:?Blurred vision?denies.?Red eye?denies.?HEENTM:?Dentures?denies, denies.?Dizziness?denies, denies.?Glasses/contacts?admits, denies.?Retinopathy?denies, denies.?Blurred/double vision?denies, denies.?TMJ?denies, denies.?Discharge/drainage?denies, denies.?Implants?denies, denies.?Sore throat?denies.?Dental implants?denies.?Hard of hearing ?admits, denies.?Difficulty chewing/swallowing/speaking?denies, denies.?Nose bleeds?denies, denies.?Sore mouth?denies, denies.?Swollen glands?denies.?Respiratory:?On Oxygen?denies, denies.?Pneumonia/pleurisy?denies, denies.?Bronchitis?denies, denies.?Emphysema?denies, denies.?Coughing?denies, denies.?Cough blood?denies, denies.?Shortness of breath?denies, denies.?Wheezing?denies, denies.?Cardiovascular:?Pacemaker?denies, denies.?MVP?denies, denies.?WPW?denies, denies.?CHF?denies, denies.?Heart attack?denies, denies.?Septal defect?denies, denies.?Rapid beat?denies, denies.?Chest pain ?denies, denies.?Atrial Fib.?denies, denies.?Murmur/Palpitations?admits, denies.?Gastrointestinal:?Hemorrhoids?admits, denies.?Stomach/Abdominal pain?denies, denies.?Dark blood stool?denies, denies.?Irritable bowel ?denies, denies.?Constipation?denies, denies.?Diarrhea?denies, denies.?Vomiting?denies.?Hematology:?Swelling?denies, denies.?Clots?denies.?Varicose Veins?denies.?Bruising?denies, denies.?Bleeding problem?denies, denies.?Genitourinary:?Blood urine?denies, denies.?Frequent/Painfu/urination/bladder control?denies, denies.?Kidney stones?denies, denies.?Infection (UTI)?denies, denies.?Nephropathy?denies, denies.?sex trans dis (STD)?denies.?Prostate?denies.?Musculoskeletal:?Hammertoes?admits, denies.?Bunions?admits, denies.?Scoliosis/kyphosis?denies.?Back Pain?denies.?Muscle Cramps/ Resting?denies.?Muscle cramps / walking?denies, denies.?Generalized aches and pains?denies, denies.?Weakness?denies, denies.?Integ.:?Lott?denies, denies.?Scars?denies, denies.?Corns/calluses?admits, denies.?Ingrown nails?denies, denies.?Painful nails?denies, denies.?Open Sores?denies.?Rashes?denies, denies.?Neurologic:?Difficulty sleeping?denies, denies.?Bipolar?denies.?Brain disorder?denies, denies.?Numbness?denies.?Balance trouble?denies, denies.?Confusion?denies, denies.?Fainting/blackouts?denies, denies.?Headache?denies.?Tingling?denies.?Tremors?denies, denies.? * Medical History:? * Surgical History:?cyst remov al 07/2002Bone Spurs 07/2002inguinal hernia repair 03/2003acl 08/1996right hip replacement 10/2018endoscopy 09/2023 * Hospitalization/Major Diagno stic Procedure:?No Hospitalization History. * Family History:?Mother: dece ased 95 yrs, foot problems, diagnosed with Family history of arthritis.?Father: 93 yrs, diagnosed with Unspecified essential hypertension.?Paternal Grand Mother: diagnosed with Unspecified cerebral artery occlusion with cerebral infarction.?Maternal Grand Mother: diagnosed with Unspecified cerebral artery occlusion with cerebral infarction.?Maternal Grand Father: diagnosed with Other malignant neoplasm of unspecified site.? * Social History:?Tobacco Use:?Tobacco Use/Smoking?Are you a:?nonsmoker ?Tobacco use other than smoking?Are you an other tobacco user??No ???Drugs/Alcohol:?Drugs?Have you used drugs other than those for medical reasons in the past 12 months??No ?Alcohol Screen?Did you have a drink containing alcohol in the past year??No ?Points?0 ?Interpretation?Negative ???Miscellaneous:?Caffeine: decaf. ?Children: yes. ?Exercise: yes, walking, yoga, stretching, lifting weights, core exercise. ?Marital status: . ?Occupation: Retired. * Medications:?TakingAlign Enio adryl , Notes: prnCalcium Centrum Women Esomeprazole Magnesium 20 MG Capsule Delayed Release 1 capsule Orally Once a dayFlaxseed Oil Magnesium 200 MG Tablet 2 tablets with a meal Orally Once a dayProlia 60 MG/ML Solution Prefilled Syringe as directed Subcutaneous Vitamin D3 ZyrTEC , Notes: prnSimethicone Medication List reviewed and reconciled with the patientTaking Align Taking Benadryl , Notes: prnTaking Calcium Taking Centrum Women Taking Esomeprazole Magnesium 20 MG Capsule Delayed Release 1 capsule Orally Once a dayTaking Flaxseed Oil Taking Magnesium 200 MG Tablet 2 tablets with a meal Orally Once a dayTaking Prolia 60 MG/ML Solution Prefilled Syringe as directed Subcutaneous Taking Vitamin D3 Taking ZyrTEC , Notes: prnTaking Simethicone Medication List reviewed and reconciled with the patient * Allergies:?Voltaren: óscar s[Allergies Verified] Objective: * Vitals:?Ht: 5ft 6.3in, Wt:13 5, BMI:21.59, Shoe size: 10.5-11W, Ht-cm: 168.4 cm, Wt-k.23 kg. * Examination: ???General Examination: ?GENERAL APPEARANCE:?pleasant, alert, well nourished, well developed, well hydrated, with good attention to hygene/body habitus, and in no acute distress.?ORIENTED:?person,place, and time.?Neurological: ?SENSORY:?Neurological exam is normal, pain sensation normal, vibration sensation intact, pinprick sensation is normal in the lower extremities, denies, tingling, burning, anesthesia, paresthesia, hyperesthesia, B/L.?TINEL'S COMPRESSION:?Negative tarsal tunnel, miguel pedis, and medial calcaneal nerves B/L.?BABINSKI REFLEX:?absent.?Neuroma Pain: ?PALPATION:?No interspace pain noted on palpation.?Vascular: ?DP PULSES:?2/4, B/L.?PT PULSES:?2/4, B/L.?CAPILLARY FILL TIME:?3 secs. per digit, B/L.?SKIN TEMPERTURE GRADIENT OF THE LOWER EXTERMITIES:?warm to cool, proximal to distal, B/L.?HAIR GROWTH/TEXTURE/ELASTICITY/TURGOR:?normal, B/L.?PIGMENTATION:?normal, B/L.?EDEMA:?no edema.?TELANGECTASIA:?absent.?VARICOSITIES:?absent.?Dermatologic: ?SKIN FINDINGS:?Skin exam reveals normal texture, elasticity, and tugor. There are no masses. The interspaces are clear, B/L .?Orthopedic: ?MUSCLE STRENGTH:?5/5 all groups in a symmetrical fashion , B/L.?GAIT ABNORMALITY:?pronated, abducted, B/L.?BUNION:? Medially prominent 1st MPJ, B/L, Lateral tracking 1st MPJ nonreducible.?DIGITAL DEFORMITIES:? Digital contracture, PIPJ, 2-5 B/L, non-reducible with WB or to push-up test, t6 overlapping t5.?FOOTWEAR:?good condition, OT were inspected and noted to be in good condition giving proper support at the present time.?X-Rays - IMAGING REPORT: ?Clinical Indication(s):? Evaluate Biomechanical Deformity.?Views:? 3 views of Foot, B/L.?Findings:? mild generalized decrease in bone density.?Foot structure:? reveals excess pronation with, anterior break in cyme line.?Digits:? show asymmetrical joint space narrowing at the PIPJ consistent with clinical finding of hammertoe deformity, show enlarged/hypertrophied phalangeal head(s) consistent for clinical finding of hammertoe deformity, 2nd digit thru 5th digit.?HAV:? increased First Intermetatarsal angle and Hallux Abductus angle consistent with Bunion deformity noted, hypertrophy of the dorsal and medial 1st MTH without subchondral cyst, severe.? Assessment: * Assessment: 1.?Hallux valgus (acquired), left foot - M20.12 (Primary)?2.?Hallux valgus (acquired), right foot - M20.11?3.?Other hammer toe(s) (acquired), right foot - M20.41?4.?Other hammer toe(s) (acquired), left foot - M20.42?5.?Neuralgia and neuritis, unspecified - M79.2? Plan: * Treatment: 2.?Hallux valgus (acquired), right foot?Imaging: X ray : Foot, right 3V * Procedure Codes:?72462 X-RAY EXAM OF LEFT FOOT 3V, Modifiers: 26 , HC67008 X-RAY EXAM OF RIGHT FOOT 3V, Modifiers: 26 , RT * Preventive Medicine:? ??Counseling:?Discussion:?-03: Office or other outpatient visit for the evaluation and management of a new patient, which required a medically appropriate history and/or examination and LOW level of DECISION MAKING for: 1 STABLE ACUTE UNCOMPLICATED PROBLEM, 2 OR MORE MINOR PROBLEMS, OR 1 STABLE CHRONIC PROBLEM, THAT POSE(S) A LOW RISK FOR MORBIDITY/MORTALITY. The visit on the day of the encounter encompassed interpreting the data and educating the patient as to the nature of their condition, treatment options available according to their individual PMH, meds, allergies, and overall health/living conditions, as well as any potential risks or complications that may occur from a failure to adhere to, and participate in, the recommended course of therapy. The discussion included a complete verbal, and/or written explanation of the examination results, any x-rays taken, the proposed diagnosis, and outline of the treatment plan. A schedule for future care needs was also explained. The patient verbalized an understanding of the instructions at this time and agreed to be an active participant in their treatment. If the patient should think of any questions or concerns after the visit, I have encouraged the patient to call the office--cotninue with custom orthoses and proper shoegear and digital padding t6 .? * Follow Up:?prn * Images: * Sign off status: Completed true * Provider:?Greg West DPM Date:? 024 Generated for Princess hand/Pamela/Chidiitting on:?11/19/2024 08:03 AM EST History and Physical Notes * HPI (History of Present Illness) Category Sub-Category Detail Notes Category Not es Foot Pain Aggrevated: any pressure Onset/Cause: gradual Course: worse, intermittent Duration: several years Nature: tingling, numbness Treatments: change in shoes, cus peg orthoses Quality/Severity moderate Location Great toe joint, B/L , L>R Examination Category Sub-Category Detail Notes Category Not es Neuroma Pain PALPATION: No interspace pain noted on palpation Neurological SENSORY: Neurological exa m is normal, pain sensation normal, vibration sensation intact, pinprick sensation is normal in the lower extremities, denies, tingling, burning, anesthesia, paresthesia, hyperesthesia, B/L BABINSKI REFLEX: absent TINEL'S COMPRESSION: Negative tarsal alissa kiya, miguel pedis, and medial calcaneal nerves B/L Dermatologic SKIN FINDINGS: Skin exam reveal s normal texture, elasticity, and tugor. There are no masses. The interspaces are clear, B/L Orthopedic GAIT ABNORMALITY: pronated, abducted, B/L BUNION: Medially prominent 1 st MPJ, B/L, Lateral tracking 1st MPJ nonreducible FOOTWEAR: good condition, OT w ere inspected and noted to be in good condition giving proper support at the present time DIGITAL DEFORMITIES: Digital contracture , PIPJ, 2-5 B/L, non-reducible with WB or to push-up test, t6 overlapping t5 MUSCLE STRENGTH: 5/5 all groups in a symmetrical fashion , B/L General Examination GENERAL APPEARANCE: pleasant , alert, well nourished, well developed, well hydrated, with good attention to hygene/body habitus, and in no acute distress ORIENTED: person,place, and ti me Vascular DP PULSES (B): 2/4, B/L PT PULSES (B): 2/4, B/L CAPILLARY FILL TIME: 3 secs. per digit, B/L TEMPERTURE GRADIENT (C): warm to cool, p roximal to distal, B/L TROPHIC CONDITION-TEXTURE/ELASTICITY/TURGOR/HAIR GROWTH (B): normal, B/L EDEMA (C): no edema TELANGECTASIA: absent VARICOSITIES: absent PIGMENTATION: normal, B/L X-Rays - IMAGING REPORT Findings: mild generalized decrease in bone density Digits: show asymmetrical didi int space narrowing at the PIPJ consistent with clinical finding of hammertoe deformity, show enlarged/hypertrophied phalangeal head(s) consistent for clinical finding of hammertoe deformity, 2nd digit thru 5th digit Foot structure: reveals excess prona tion with, anterior break in cyme line HAV: increased First Inte rmetatarsal angle and Hallux Abductus angle consistent with Bunion deformity noted, hypertrophy of the dorsal and medial 1st MTH without subchondral cyst, severe Views: 3 views of Foot, B/L Clinical Indication(s): Evaluate Biomech anical Deformity
--- OUTSIDE RECORDS SUMMARY | 2024-11-19 08:03 | XMS_ITS | Patient Health Record ---
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 Name Role Phone Idalmis Kyle MD Primary Care Provider Greg Martinez Unavailable [phone] Allergies Allergen (clinical drug ingredient) Drug/Non Drug Allergy documented on EMR Reaction Allergy Type Onset Date Status Angelica koroma Drug Allergy Active Reason For Referral No Information Medications Medication SIG (Take, Route, Frequency, Duration) Notes Start Date End Date Status Flaxseed Oil Active Prolia 60 MG/ML as directed Subcutaneous Active Magnesium 200 MG 2 tablets with a seamus l Orally Once a day Active ZyrTEC prn Active Vitamin D3 Active Align Active Simethicone Active Calcium Active Benadryl prn Active Esomeprazole Magnesium 20 MG 1 capsule Orally Once a day Active Centrum Women Active Social History Tobacco Use: Social History [...] Status Risk Notes Problem Acquired hallux valgus (41379889) Hallux valgus (acquired), left foot (M20.12) Active confirmed Problem Acquired hallux valgus (62551323) Hallux valgus (acquired), right foot (M20.11) Active confirmed Problem Acquired hammer toe of right foot (3619597734666 105) Other hammer toe(s) (acquired), right foot (M20.41) Active confirmed Problem Acquired hammer toe of left foot (1022300619726 103) Other hammer toe(s) (acquired), left foot (M20.42) Active confirmed Vital Signs Height 5ft 6.3in in 02/20/2024 Weight 135 lbs 02/20/2024 BMI 21.59 kg/m2 02/20/2024 Encounters Encounter Location Date Provider Diagnosis [facility] [place] [address] [facility] [address] [place] [address] 02/20/2024 Greg Brett Hallux valgus (acquired), left foot M20.12 ; Hallux valgus (acquired), right foot M20.11 ; Other hammer toe(s) (acquired), right foot M20.41 ; Other hammer toe(s) (acquired), left foot M20.42 and Neuralgia and neuritis, unspecified M79.2 [facility] [place] [address] [place] [address] 01/10/2024 Greg West Assessments Encounter Date Diagnosis (ICD Code) Assessment [...] X ray : Foot, right 3V 02/20/2024 Insurance Providers Payer Name Payer Address Payer Phone Subscriber Number Group Number Insured Name Patient Relationship to Insured Coverage Start Date Coverage End Date [employer] Medicare Complete [address] [address] [place] [address] [id number] RicoShirley olguinecca Self - patient is the insured Medical (General) History Medical History History ICD Code osteoarthritis Headaches/Migraines Hiatal hernia Osteoporosis Reflux ( GERD) Warts Measles Mumps Chicken pox Joint implants/screws Bone implants/screws Surgical History Surgery Date(Month/Year) cyst removal 07/2002 Bone Spurs 07/2002 inguinal hernia repair 03/2003 acl 08/1996 right hip replacement 10/2018 endoscopy 09/2023
[2024-11-19 08:08] VITALS: BP 122/74; PULSE 72; O2SAT 98
--- NOTE | 2024-11-19 08:08 | MHC.OFFWIV ---
Intake Vital Signs 11/19/24 08:08 Weight 127 lb BP 122/74 Blood Pressure Location Rt brachial Position Sitting Pulse 72 Pulse Source Pulse Oximeter Pulse Oximetry (%) 98 Oxygen Delivery Method Room Air Intake Visit Reasons: EP-lt hand rash Intake Note: Patient here for rash on three fingers on her left hand, started on ring finger that was present a few weeks ago and has spread to the other two fingers. Patient Tobacco Use Status: Never used Tobacco Allergies diclofenac [From Voltaren] Allergy (Severe, Verified 11/19/24 08:13) Hives Do you need a note to return to daycare/school/sports/work: No HPI HPI Comments History of Present Illness Details Patient is a 74-year-old female complaining of a rash on her left 3rd 4th and 5th digits. She tells me the rash started about 2-3 weeks ago on 1 finger and then spread to the other 2. She tells me it is itchy and sometimes has a burning quality. She denies any new soaps, hand lotions, shampoos or creams. She tells me we did have some very cold weather when it 1st started. She denies any fevers or warmth of the rash. She tells me she did try a hydrocortisone cream which seemed to help for a little while but it still remains itchy. COUNTS INCLUDE 234 BEDS AT THE [facility] Medical History Aortic regurgitation Osteoporosis Cerumen impaction Skin nodule Vitamin D deficiency Hearing loss Trigger finger of right hand Tremor Osteoarthritis, hand Murmur Andrade's esophagus Seasonal allergies GERD (gastroesophageal reflux disease) Hx of mitral valve prolapse Hyponatremia Surgical History Hx of colonoscopy History of esophagogastroduodenoscopy (EGD) History of right hip replacement Family History Father CHF (congestive heart failure) HTN (hypertension) Mother Rectal bleeding Maternal Grandfather Colon cancer Daughter Mental health disorder Bipolar 1 disorder Brother Substance use disorder Alcoholic Social History Household Members: None Housing: Condominium Alcohol intake: former Patient Tobacco Use Status: Never used Tobacco e-Cigarette/Vaping Use: Never Used Second Hand Smoke Exposure: No service: No Current occupational status: retired 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 Current occupational exposures/hazards: No Cognitive needs: No Hearing needs: No Vision needs: No Review of Systems Const All systems reviewed & are unremarkable except as noted in HPI and below Physical Exam Vital Signs: Last Vital Signs Pulse 72 11/19/24 08:08 BP 122/74 11/19/24 08:08 Pulse Ox 98 11/19/24 08:08 Oxygen Delivery Method Room Air 11/19/24 08:08 Const General: cooperative, healthy appearing, comfortable, no acute distress and well developed Orientation/consciousness: patient oriented x3 Limitations: no limitations HEENT Head: Yes normal to inspection Eyes General: appearance normal, both eyes and all related structures Neck Neck: Yes normal visual inspection and Yes full ROM Resp Effort & Inspection: normal respiratory effort and able to speak in complete sentences Skin Other: Left hand, 3rd 4th and 5th digits each have a 1 cm oblong area of erythema which is slightly raised on the DIP area of each digit, slightly dry, no warmth, no weeping, no vesicles, no ecchymosis, no lesions, no lacerations or abrasions noted Neuro General: patient oriented x3 Extrem General: Yes normal to inspection Assessment & Plan Assessment & Plan (1) Allergic dermatitis: Code(s): L23.9 - Allergic contact dermatitis, unspecified cause Plan: Allergic dermatitis versus eczema, sent triamcinolone cream to pharmacy, recommended using it twice a day for 7-10 days. If no improvement, she should return to the walk-in clinic so we can re-evaluate the rash and possibly send her to Dermatology. Medications: New triamcinolone acetonide 0.1% 1 appl topical BID 30 grams 0RF Coding Level of Care Code Est Pt Level 3 (30165) Diagnoses Allergic dermatitis L23.9
== END 2024-11-19 08:37 | disposition home or self-care (01) ==
PROVIDERS: PCP Internal Medicine; Visit Provider Physician Assistant
DX: L23.9 Allergic contact dermatitis, unspecified cause (principal)

== ENCOUNTER → 2024-11-19 08:01 | Outpatient (BNVA) | payer MEDICARE, SELFPAY | PROVIDERS: PCP Internal Medicine; Visit Provider Physician Assistant | DX: L23.9 Allergic contact dermatitis, unspecified cause (principal) | CPT/HCPCS: 99212 ==

== ENCOUNTER 2024-11-30 09:12 | Outpatient (AMB) | payer MEDICARE, SELFPAY ==
--- NOTE | 2024-11-30 10:39 | AM.OFFWIN_ITS ---
Intake Vital Signs 11/30/24 10:45 Weight 127 lb BP 110/68 Blood Pressure Location Lt brachial Position Sitting Pulse 78 Pulse Source Pulse Oximeter Temp 97.8 F Temp Source Oral Pulse Oximetry (%) 97 Oxygen Delivery Method Room Air Intake Visit Reasons: EP LT hand rash Intake Note: Patient here for rash on left hand that has been present since October and was put on steroids which did not help, she states it is now starting on the right hand. Patient Tobacco Use Status: Never used Tobacco Allergies diclofenac [From Voltaren] Allergy (Severe, Verified 11/30/24 10:46) Hives Do you need a note to return to daycare/school/sports/work: No HPI EP LT hand rash HPI Details Patient is a 74-year-old female comes to the walk-in clinic complaining of worsening pruritic rash to the left fingers, that is now starting to show up on the right hand also. It started on 1 digit and then spread to the where it was on the the left 2nd, 3rd and 4th digits' PIPs when she was evaluated at the walk-in about a week and a half ago. She was diagnosed with likely atopic dermatitis versus eczema and was started on triamcinolone ointment. She reports that it is not improved and it has spread to the 5th digit distally from the PIPs to the DIPs, and is also now on her right hand, slightly at the 3rd PIP area. She denies fever or chills, fatigue, joint swelling, difficulty breathing, or other significant associated symptoms. No change in oral intake, personal products or meds. She reports that she does get dry skin normally around this time of year due to cold weather outside and using dry heat sources. She can get cracking to the distal fingers, and typically uses petroleum ointments and keeps fingers and hands emoliated. She stopped using the ointment when she started with the steroid cream . [facility] Medical History Aortic regurgitation Osteoporosis Cerumen impaction Skin nodule Vitamin D deficiency Hearing loss Trigger finger of right hand Tremor Osteoarthritis, hand Murmur Andrade's esophagus Seasonal allergies GERD (gastroesophageal reflux disease) Hx of mitral valve prolapse Hyponatremia Surgical History Hx of colonoscopy History of esophagogastroduodenoscopy (EGD) History of right hip replacement Family History Father CHF (congestive heart failure) HTN (hypertension) Mother Rectal bleeding Maternal Grandfather Colon cancer Daughter Mental health disorder Bipolar 1 disorder Brother Substance use disorder Alcoholic Social History Household Members: None Housing: Condominium Alcohol intake: former Patient Tobacco Use Status: Never used Tobacco e-Cigarette/Vaping Use: Never Used Second Hand Smoke Exposure: No service: No Current occupational status: 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 They are erythematous, slightly raised, mildly cracking and with scattered papules. No apparent vesicles or pustules, open areas or excoriations or bleeding. No edema or warmth. Neurovascularly intact distally. On the right hand, there is very slight erythema to the PIP of the 3rd finger, no obvious lesions. Assessment & Plan Assessment & Plan (1) Pruritic erythematous rash: Code(s): L29.89 - Other pruritus Plan: Patient's finger still has the appearance of an atopic or allergic dermatitis. Based on the history of it worsening despite steroid cream however I am suspicious that this could be fungal in nature instead. It is not incredibly pruritic for her, as she states that she does not scratch it and is able to leave it alone, so I do not think she necessitates cetirizine, Benadryl or a Vistaril. Due to the rash having papular lesions within however, and having them be located on the hands and moving in a proximal pattern, I discussed with her that it is possible this could be a scabies infestation. There was no known source of exposure, and patient does not feel like symptoms are worsening at night. I told her it is reasonable to do a permethrin treatment tonight, and if symptoms are not improving in the next day or 2, to start an antifungal cream at that point. She should also consider seeing a denial management representative, so referral was put in today. She can follow up at the walk-in or PCP sooner if symptoms continue to worsen. Orders: Referrals Dermatology Referral L28.2 - Other prurigo Medications: New permethrin 5% apply second treatment 14 days after first treatment if live lice remain 1 appl topical Q14D 60 grams 0RF clotrimazole 1% 1 appl topical BID 2 weeks 30 grams 0RF Coding Level of Care Code Est Pt Level 4 (20643) Diagnoses Pruritic erythematous rash L29.89
[2024-11-30 10:45] VITALS: BP 110/68; PULSE 78; TEMP 36.6; O2SAT 97
== END 2024-11-30 13:28 | disposition home or self-care (01) ==
PROVIDERS: PCP Internal Medicine; Visit Provider Physician Assistant Medical
DX: L29.89 Other pruritus (principal)

== ENCOUNTER → 2024-11-30 09:12 | Outpatient (BNVA) | payer MEDICARE, SELFPAY | PROVIDERS: PCP Internal Medicine; Visit Provider Physician Assistant Medical | DX: L29.89 Other pruritus (principal) | CPT/HCPCS: 99212 ==

== ENCOUNTER 2024-12-05 10:51 | Outpatient (RCR) | payer MEDICARE, SELFPAY ==
--- NOTE | 2024-12-06 08:40 | MHC.OT.DC ---
[address] [phone] F: [phone] Occupational Therapy Discharge Note Patient Name: Philomena Gómez Provider: Idalmis Kyle Diagnosis: (R)hand fluid filled mass Date of Surgery: Date of Evaluation: 11/01/24 Date of Discharge: Treatments to Date: 9 Cancellations to Date: No Shows to Date: Discharge Status: Achieved Goals Improved Function Independent with HEP Discharge Summary: Patient is discharged from skilled OT as she has achieved all of her goals. She is (I) with her HEP, edema has decreased nicely and she achieved a 0 on the Quick DASH. Thank you for your referral patient was an absolute pleasure to work with. Electronically Signed By: SHREYAS Tatum/Sidra, DARCY Reviewed/agree with student documentation: Therapist: Please Sign and return to therapist, thank you for your referral.
== END 2024-12-06 08:40 | disposition home or self-care (01) ==
LOC: HO.OT 10:51
PROVIDERS: PCP Internal Medicine; Visit Provider Internal Medicine
DX: M77.8 Other enthesopathies, not elsewhere classified (principal)
CPT/HCPCS: 97110; 97140; 97165

== ENCOUNTER 2025-01-06 07:55 | Outpatient (AMB) | payer MEDICARE, SELFPAY ==
[2025-01-06 08:12] VITALS: BP 118/70; PULSE 69; RESP 18; TEMP 36.4; O2SAT 100; BMI 21.1
--- NOTE | 2025-01-06 08:12 | MHC.PC.OV ---
Vital Signs 01/06/25 08:12 Height 5 ft 7 in Weight 135 lb BMI 21.1 BP 118/70 Blood Pressure Location Lt brachial Position Sitting Respiration 18 Pulse 69 Pulse Source Pulse Oximeter Temp 97.6 F Temp Source Oral Pulse Oximetry (%) 100 Oxygen Delivery Method Room Air Intake Visit Reasons: PE Allergies diclofenac [From Voltaren] Allergy (Severe, Verified 01/06/25 08:13) Hives Medication List - Last Reconciled 01/06/25 by Idalmis Kyle MD acetaminophen (Tylenol Extra Strength) 500 mg PO Q6H PRN Bifidobacterium infantis (Align (B.infantis)) 4 mg PO DAILY calcium carbonate (Calcium 600) 700 mg PO DAILY cholecalciferol (vitamin D3) 50 mcg PO DAILY clotrimazole 1% 1 appl topical BID 2 weeks esomeprazole magnesium 20 mg PO DAILY magnesium 250 mg PO DAILY miscellaneous medical supply 2 ea miscellaneous DAILY xpullbsdpujp-imae-mbxzh acid 18-400 mg-mcg (Centrum Women) 1 tab PO DAILY permethrin 5% 1 appl topical Q14D 2 doses Prolia (denosumab) 60 mg subcut [id number] NS simethicone (Gas Relief Extra Strength) 125 mg PO TID PRN triamcinolone acetonide (Nasacort Allergy) 1 spray intranasal DAILY Tobacco use date assessed: 01/06/25 Fall risk assessment: 1 Fall in past year Last assessed Fall Risk: 01/06/25 Dental Screening Dental Screen Date: 01/06/25 Did you have a dental visit in the last 12 months?: Yes Did you have a dental problem in the last 6 months where you did not have access to dental care?: No Was dental information given to patient?: Patient has dentist HPI PE HPI Details Patient presents for physical PFSH Medical History Aortic regurgitation Osteoporosis Cerumen impaction Skin nodule Vitamin D deficiency Hearing loss Trigger finger of right hand Tremor Osteoarthritis, hand Murmur Andrade's esophagus Seasonal allergies GERD (gastroesophageal reflux disease) Hx of mitral valve prolapse Hyponatremia Surgical History Hx of colonoscopy History of esophagogastroduodenoscopy (EGD) History of right hip replacement Family History Father CHF (congestive heart failure) HTN (hypertension) Mother Rectal bleeding Maternal Grandfather Colon cancer Daughter Mental health disorder Bipolar 1 disorder Brother Substance use disorder Alcoholic Social History Household Members: None Housing: Condominium Alcohol intake: former Patient Tobacco Use Status: Never used Tobacco e-Cigarette/Vaping Use: Never Used Second Hand Smoke Exposure: No service: No Current occupational status: retired Current occupation: [employer] Current occupational exposures/hazards: No Cognitive needs: No Hearing needs: No Vision needs: No Questionnaire PHQ-9 Over the last 2 weeks, how often have you been bothered by any of the following problems? 1. Little interest or pleasure in doing things: not at all 2. Feeling down, depressed, or hopeless: not at all 3. Trouble falling or staying asleep, or sleeping too much: not at all 4. Feeling tired or having little energy: not at all 5. Poor appetite or overeating: not at all 6. Feeling bad about yourself - or that you are a failure or have let yourself or your family down: not at all 7. Trouble concentrating on things, such as reading the newspaper or watching television: not at all 8. Moving or speaking so slowly that other people could have noticed. Or the opposite - being so fidgety or restless that you have been moving around a lot more than usual: not at all 9. Thoughts that you would be better off or of hurting yourself in some way: not at all Total score: 0 Depression Screening Interpretation: Negative Depression Screening Done: Yes 09388 - PHQ-9 Billing: Yes Source: Developed by Drs. Paolo Arenas, Silvana Seo, Gaurav Rasmussen and colleagues, with an educational christine from [employer]. Thrive Questionnaire Date Thrive assessed: 01/06/25 I am a: Patient What is your living situation today?: I have a steady place to live Within the past 12 months, did the food you bought not last and you didn't have the money to get more?: Never true Within the past 12 months, did you worry whether your food would run out before you got money to buy more?: Never true Do you have trouble paying for medicines?: No Do you have trouble getting transportation to medical appointments?: No Do you have trouble paying your heating and electricity bill?: No Do you have trouble taking care of your child, family member or friend?: No Do you have trouble with day-to-day activities such as bathing, preparing meals, shopping, managing finances, etc.?: No Are you currently unemployed and looking for a job?: No Are you interested in more education?: No Please select the resources that you would like help with: None Currently or been in a relationship where the following occur: No concerns reported THRIVE Score: 0 AUDIT C Alcohol Use Questionnaire (AUDIT-C) 1. How often do you have a drink containing alcohol?: Never 3. How often do you have six or more drinks on one occasion?: Never Total Score: 0 Score Reviewed/Action Taken: Yes ANNE-7 AMB Questionnaire ANNE-7 Date ANNE - 7 assessed: 01/06/25 Feeling nervous, anxious, or on edge: 0 = Not at all Not being able to stop or control worryin = Not at all Worrying too much about different things: 0 = Not at all Trouble relaxin = Not at all Being so restless that it is hard to sit still: 0 = Not at all Becoming easily annoyed or irritable: 0 = Not at all Feeling afraid as if something awful might happen: 0 = Not at all Total ANNE-7 score (0-4 normal; 5-9 mild; 10-14 moderate; 15-21 severe): 0 Source: Developed by Drs. Paolo Arenas, Silvana Seo, Gaurav Rasmussen and colleagues, with an educational christine from [employer]. ANNE-7 Assessment Billing ANNE-7 Assessment Tool: ANNE-7 Assessment 61752 Review of Systems Const All systems reviewed & are unremarkable except as noted in HPI and below Eyes Reports no additional complaints ENT Reports no additional complaints Card Reports no additional complaints Resp Reports no additional complaints GI Reports no additional complaints Reports no additional complaints Physical exam (Primary Care) Vital Signs: Last Vital Signs Temp 97.6 F 01/06/25 08:12 Pulse 69 01/06/25 08:12 Resp 18 01/06/25 08:12 BP 118/70 01/06/25 08:12 Pulse Ox 100 01/06/25 08:12 Oxygen Delivery Method Room Air 01/06/25 08:12 BMI result Body Mass Index 21.1 Tobacco/Smoking Status: Tobacco use Status Tobacco use date assessed 01/06/25 01/06/25 08:16 Patient Tobacco Use Status Never used Tobacco 01/06/25 08:16 e-Cigarette/Vaping Use Never Used 01/06/25 08:16 PHQ-9: PHQ-9 Score PHQ-9: Total score 0 01/06/25 08:16 Depression Screening Interpretation: Negative Thrive Assessment: Date of Thrive Assessment Date Thrive assessed 01/06/25 01/06/25 08:16 Currently or been in a relationship where the following occur: No concerns reported Const General: no acute distress HENMT Head: Yes normal to inspection Ears: hearing grossly normal bilaterally Face and sinus: Yes normal facial exam Throat: Yes posterior oropharynx normal Eyes General: appearance normal, both eyes and all related structures Neck Neck: Yes no lymphadenopathy and Yes supple Resp Effort & Inspection: normal respiratory effort Auscultation: clear to auscultation bilaterally Cardio Rhythm: regular rhythm Heart sounds: S1 normal heart sound present and S2 normal heart sound present GI Inspection: Yes normal to inspection Palpation (GI): Soft to palpation Percussion: Yes normal to percussion Auscultation: normal bowel sounds Coding Level of Care Code Est Pt Prev Care >65y(26808) Diagnoses Hyponatremia E87.1 Anemia D64.9 Annual physical exam Z00.00 Osteoporosis M81.0 Vitamin D deficiency E55.9 Additional Codes ANNE-7 Assessment Billing - ANNE-7 Assessment Tool: ANNE-7 Assessment 46965 ([id number]) PHQ-9 - 61101 - PHQ-9 Billing: Yes ([id number]) Assessment & Plan Assessment & Plan (1) Hyponatremia: Code(s): E87.1 - Hypo-osmolality and hyponatremia Category: Medical Plan: Monitor sodium level (2) Anemia: Comment: Borderline low RBCs and hematocrit, normal iron vitamin B12 levels. Code(s): D64.9 - Anemia, unspecified Category: Medical Plan: Monitor CBC (3) Annual physical exam: Code(s): Z00.00 - Encounter for general adult medical examination without abnormal findings Category: Medical Plan: Well-balanced diet regular physical activity discussed with the patient she is up-to-date with the mammogram and colonoscopy. (4) Osteoporosis: Comment: DEXA 10/2021, T score 3.0 , unchanged for 2019, took Fosamax for 8 years in the past >7 yrs ago, DEXA 02/10 T score total femur -3.3, start Prolia 02/10 Code(s): M81.0 - Age-related osteoporosis without current pathological fracture Category: Medical Plan: Continue Prolia and vitamin-D for one more year and repeat DEXA in 1 year (5) Vitamin D deficiency: Code(s): E55.9 - Vitamin D deficiency, unspecified Category: Medical Plan: Continue vitamin-D. Orders: Orders Complete Blood Count Auto Diff 6 Months D64.9 - Anemia, unspecified, E87.1 - Hypo-osmolality and hyponatremia Lipid Panel 1 Year D64.9 - Anemia, unspecified, E55.9 - Vitamin D deficiency, unspecified, M81.0 - Age-related osteoporosis without current pathological fracture, Z00.00 - Encounter for general adult medical examination without abnormal findings Vitamin D 25-OH Total 1 Year D64.9 - Anemia, unspecified, E55.9 - Vitamin D deficiency, unspecified, M81.0 - Age-related osteoporosis without current pathological fracture, Z00.00 - Encounter for general adult medical examination without abnormal findings Basic Metabolic Panel 6 Months D64.9 - Anemia, unspecified, E87.1 - Hypo-osmolality and hyponatremia Comprehensive Armour. Panel Fast 1 Year D64.9 - Anemia, unspecified, E55.9 - Vitamin D deficiency, unspecified, M81.0 - Age-related osteoporosis without current pathological fracture, Z00.00 - Encounter for general adult medical examination without abnormal findings Complete Blood Count Auto Diff 1 Year D64.9 - Anemia, unspecified, E55.9 - Vitamin D deficiency, unspecified, M81.0 - Age-related osteoporosis without current pathological fracture, Z00.00 - Encounter for general adult medical examination without abnormal findings Immunofixation Pnl, Serum 1 Year D64.9 - Anemia, unspecified, E55.9 - Vitamin D deficiency, unspecified, M81.0 - Age-related osteoporosis without current pathological fracture, Z00.00 - Encounter for general adult medical examination without abnormal findings Medications: Refilled Prolia (denosumab) 60 mg subcut [id number] 2 mL 1RF NS
== END 2025-01-06 08:45 | disposition home or self-care (01) ==
PROVIDERS: PCP Internal Medicine; Visit Provider Internal Medicine
DX: E87.1 Hypo-osmolality and hyponatremia (principal); D64.9 Anemia, unspecified; Z00.00 Encounter for general adult medical examination without abnormal findings; M81.0 Age-related osteoporosis without current pathological fracture; E55.9 Vitamin D deficiency, unspecified

== ENCOUNTER → 2025-01-06 07:55 | Outpatient (BNVA) | payer MEDICARE, SELFPAY | PROVIDERS: PCP Internal Medicine; Visit Provider Internal Medicine | DX: Z00.00 Encounter for general adult medical examination without abnormal findings (principal); E87.1 Hypo-osmolality and hyponatremia; D64.9 Anemia, unspecified; E55.9 Vitamin D deficiency, unspecified; M81.0 Age-related osteoporosis without current pathological fracture | CPT/HCPCS: 96127; 99397 ==

== ENCOUNTER 2025-02-07 07:31 | Outpatient (REF) | payer MEDICARE, SELFPAY ==
--- OUTSIDE RECORDS SUMMARY | 2025-02-07 07:34 | XMS_ITS ---
[facility] Address [address] [place] [address] Care Team Providers Care Java Web Developer Name Role Phone Idalmis Kyle MD Primary Care Provider Greg Martinez Unavailable [phone] Allergies Allergen (clinical drug ingredient) Drug/Non Drug [...] Status Risk Notes Problem Acquired hallux valgus (98967476) Hallux valgus (acquired), left foot (M20.12) Active confirmed Problem Acquired hallux valgus (17475310) Hallux valgus (acquired), right foot (M20.11) Active confirmed Problem Acquired hammer toe of right foot (6099663267404 105) Other hammer toe(s) (acquired), right foot (M20.41) Active confirmed Problem Acquired hammer toe of left foot (8633496253646 103) Other hammer toe(s) (acquired), left foot (M20.42) Active confirmed Vital Signs Height 5ft 6.3in in 02/20/2024 Weight 135 lbs 02/20/2024 BMI 21.59 kg/m2 02/20/2024 Encounters Encounter Location Date Provider Diagnosis [facility] [address] [facility] [address] [place] [address] 02/20/2024 Greg West Hallux valgus (acquired), left [...] * Philomena GÓMEZDOB: [birth year] (73 yo F)Acc No.[id number]:02/20/2024 Progress Notes Patient:?Philomena Gómez Provider:?Greg West DPM :1950???Age:73 Y???Sex:Female D ate:02/20/2024 Address:[address], [phone] Pcp:Idalmis Kyle MD Subjective: * Chief Complaints: [...] ray : Foot, right 3V * Procedure Codes:?53893 X-RAY EXAM OF LEFT FOOT 3V, Modifiers: 26 , FV03077 X-RAY EXAM OF RIGHT FOOT 3V, Modifiers: [...] DPM Date:? 024 Generated for Princess hand/Pamela/Chidiitting on:?02/07/2025 07:34 AM EDT History and Physical Notes * HPI (History [...]
--- OUTSIDE RECORDS SUMMARY | 2025-02-07 07:34 | XMS_ITS ---
Author Organization [facility] Address [address] [place] [address] Care Team Providers Care Shipyard Painter Apprentice Name Role Phone Idalmis Kyle MD Primary Care Provider UnavailGreg Garzon [phone] REASON FOR VISIT IMPREGNATOR AND DRIER Encounters Encounter Location Date Provider Diagnosis [facility] [address] [place] [address] 01/10/2024 Greg West Plan Of Treatment No Information Progress Notes * Philomena GÓMEZDOB: [birth year] (73 yo F)Acc No.[id number]:01/10/2024 Patient:?Philomena Gómez :1950???Age:73 Y???Sex:Female Address:[address], [place] [address] * true * Date:? Generated for Printi ng/Fakishang/eTransmitting on:?02/07/2025 07:34 AM EDT
--- OUTSIDE RECORDS SUMMARY | 2025-02-07 07:35 | XMS_ITS | Patient Health Record ---
Author [facility] Address [address] [place] [address] Care Team Providers Care Labor Relations Specialist Name Role Phone Idalmis Kyle MD Primary Care Provider Greg Martinez Unavailable [phone] Allergies Allergen (clinical drug ingredient) Drug/Non Drug [...] Status Risk Notes Problem Acquired hallux valgus (36494679) Hallux valgus (acquired), left foot (M20.12) Active confirmed Problem Acquired hallux valgus (05772867) Hallux valgus (acquired), right foot (M20.11) Active confirmed Problem Acquired hammer toe of right foot (8411901769665 105) Other hammer toe(s) (acquired), right foot (M20.41) Active confirmed Problem Acquired hammer toe of left foot (9631684777774 103) Other hammer toe(s) (acquired), left foot (M20.42) Active confirmed Vital Signs Height 5ft 6.3in in 02/20/2024 Weight 135 lbs 02/20/2024 BMI 21.59 kg/m2 02/20/2024 Encounters Encounter Location Date Provider Diagnosis [facility] [address] [phone] 02/20/2024 Greg West Hallux valgus (acquired), left [...] End Date AARP Medicare Complete [address] [address] [place] [address] [id number] Philomena Gómez Self - patient is the insured Medical (General) History Medical History History ICD Code osteoarthritis Headaches/Migraines Hiatal hernia Osteoporosis Reflux ( GERD) Warts Measles Mumps Chicken pox Joint implants/screws Bone implants/screws Surgical History Surgery Date(Month/Year) cyst removal 07/2002 Bone Spurs 07/2002 inguinal hernia repair 03/2003 acl 08/1996 right hip replacement 10/2018 endoscopy 09/2023
== END 2025-02-07 07:32 | disposition home or self-care (01) ==
LOC: HO.MAMMO 07:31
PROVIDERS: PCP Internal Medicine; Visit Provider Internal Medicine
DX: Z12.31 Encounter for screening mammogram for malignant neoplasm of breast (principal)
CPT/HCPCS: 77063; 77067

== ENCOUNTER → 2025-02-07 07:45 | Outpatient (BNV) | payer MEDICARE, SELFPAY | PROVIDERS: PCP Internal Medicine; Visit Provider Internal Medicine | DX: Z12.31 Encounter for screening mammogram for malignant neoplasm of breast (principal) | CPT/HCPCS: 77063; 77067 ==

== ENCOUNTER 2025-02-17 11:16 | Outpatient (AMB) | payer MEDICARE, SELFPAY ==
--- NOTE | 2025-02-17 11:34 | AM.OFFVISNUR ---
Intake Visit Reasons: Prolia injection Intake Note: Pt arrived for Prolia injection Microbiology Technician Required: No Allergies diclofenac [From Voltaren] Allergy (Severe, Verified 02/17/25 11:34) Hives Medication List - Last Reconciled 02/17/25 by Denisha Eddy RN acetaminophen (Tylenol Extra Strength) 500 mg PO Q6H PRN Bifidobacterium infantis (Align (B.infantis)) 4 mg PO DAILY calcium carbonate (Calcium 600) 700 mg PO DAILY cholecalciferol (vitamin D3) 50 mcg PO DAILY clotrimazole 1% 1 appl topical BID 2 weeks esomeprazole magnesium 20 mg PO DAILY magnesium 250 mg PO DAILY miscellaneous medical supply 2 ea miscellaneous DAILY frgebgpduwvl-cxtc-yyiap acid 18-400 mg-mcg (Centrum Women) 1 tab PO DAILY Prolia (denosumab) 60 mg subcut [id number] NS simethicone (Gas Relief Extra Strength) 125 mg PO TID PRN triamcinolone acetonide (Nasacort Allergy) 1 spray intranasal DAILY Is last menstrual period known: No Post menopausal: Yes Patient : No Office Meds Prolia 60 mg/mL subcutaneous syringe Performing Provider: Idalmis Kyle MD Performing Location: [facility] Administered by: Denisha Eddy RN on 02/17/25 11:36 Dose Route Admin Location Dispensed Lot Number Expiration Date [facility] Institution Librarian 60 mg subcut Right upper arm 1 mL [id number] 06/19/27 63369-097-67 AMGEN Comments: Pt supplied Assessment & Plan Assessment & Plan Orders: Orders AMB Denosumab Injection Patient Supplied Today M81.0 - Age-related osteoporosis without current pathological fracture Medications: New Prolia (denosumab) 60 mg subcut ONCE 1 mL 0RF NS M81.0 - Age-related osteoporosis without current pathological fracture Coding
--- OUTSIDE RECORDS SUMMARY | 2025-02-17 12:56 | XMS_ITS | Patient Health Record ---
Author [facility] Address [address] [place] [address] Care Team Providers Care Valve Tester Name Role Phone Idalmis Kyle MD Primary Care Provider Greg Martinez Unavailable [phone] Allergies Allergen (clinical drug ingredient) Drug/Non Drug [...] Status Risk Notes Problem Acquired hallux valgus (24445685) Hallux valgus (acquired), left foot (M20.12) Active confirmed Problem Acquired hallux valgus (55605176) Hallux valgus (acquired), right foot (M20.11) Active confirmed Problem Acquired hammer toe of right foot (9536634569308 105) Other hammer toe(s) (acquired), right foot (M20.41) Active confirmed Problem Acquired hammer toe of left foot (6018169208133 103) Other hammer toe(s) (acquired), left foot (M20.42) Active confirmed Vital Signs Height 5ft 6.3in in 02/20/2024 Weight 135 lbs 02/20/2024 BMI 21.59 kg/m2 02/20/2024 Encounters Encounter Location Date Provider Diagnosis [facility] [address] [address] 02/20/2024 Greg West Hallux valgus (acquired), left [...] End Date AARP Medicare Complete [address] [address] [place] [address] [phone] [id number] Philomena Gómez Self - patient is the insured Medical (General) History Medical History History ICD Code osteoarthritis Headaches/Migraines Hiatal hernia Osteoporosis Reflux ( GERD) Warts Measles Mumps Chicken pox Joint implants/screws Bone implants/screws Surgical History Surgery Date(Month/Year) cyst removal 07/2002 Bone Spurs 07/2002 inguinal hernia repair 03/2003 acl 08/1996 right hip replacement 10/2018 endoscopy 09/2023
--- OUTSIDE RECORDS SUMMARY | 2025-02-17 12:56 | XMS_ITS ---
Author Organization [facility] Address [address] [place] [address] Care Team Providers Care Fbi Field Agent Name Role Phone Idalmis Kyle MD Primary Care Provider UnavailGreg Garzon [phone] REASON FOR VISIT TRUCKSMITH Encounters Encounter Location Date Provider Diagnosis [facility] [address] [place] [address] 01/10/2024 Greg West Plan Of Treatment No Information Progress Notes * Philomena GÓMEZDOB: [birth year] (73 yo F)Acc No.[id number]:01/10/2024 Patient:?Philomena Gómez :1950???Age:73 Y???Sex:Female Address:[address], [place] [address] * true * Date:? Generated for Printi ng/Fakishang/eTransmitting on:?02/17/2025 12:56 PM EDT
--- OUTSIDE RECORDS SUMMARY | 2025-02-17 12:56 | XMS_ITS ---
[facility] Address [address] [place] [address] Care Team Providers Care Manometer Technician Name Role Phone Idalmis Kyle MD Primary Care Provider Greg Martinez Unavailable [phone] Allergies Allergen (clinical drug ingredient) Drug/Non Drug [...] Status Risk Notes Problem Acquired hallux valgus (72038168) Hallux valgus (acquired), left foot (M20.12) Active confirmed Problem Acquired hallux valgus (06849938) Hallux valgus (acquired), right foot (M20.11) Active confirmed Problem Acquired hammer toe of right foot (7709665367084 105) Other hammer toe(s) (acquired), right foot (M20.41) Active confirmed Problem Acquired hammer toe of left foot (0595495176317 103) Other hammer toe(s) (acquired), left foot (M20.42) Active confirmed Vital Signs Height 5ft 6.3in in 02/20/2024 Weight 135 lbs 02/20/2024 BMI 21.59 kg/m2 02/20/2024 Encounters Encounter Location Date Provider Diagnosis [facility] [address] [facility] [address] [place] [address] 02/20/2024 Greg West Hallux valgus (acquired), left [...] * Philomena GÓMEZDOB: [birth year] (73 yo F)Acc No.[id number]:02/20/2024 Progress Notes Patient:?Philomena Gómez Provider:?Greg West DPM :1950???Age:73 Y???Sex:Female D ate:02/20/2024 Address:[address], [id number] Pcp:Idalmis Kyle MD Subjective: * Chief Complaints: [...] ray : Foot, right 3V * Procedure Codes:?87567 X-RAY EXAM OF LEFT FOOT 3V, Modifiers: 26 , [id number] X-RAY EXAM OF RIGHT FOOT 3V, Modifiers: [...] West DPM Date:? 024 Generated for Princess hand/Pamela/Adelaidasmitting on:?02/17/2025 12:56 PM EDT History and Physical Notes * HPI [...] MPJ, B/L, Lateral tracking 1st MPJ nonreducible FOOTWEAR EVALUATION: good condition, OT were inspected and noted to [...]
== END 2025-02-17 11:52 | disposition home or self-care (01) ==
LOC: HO.HMCC 11:17
PROVIDERS: PCP Internal Medicine; Visit Provider Internal Medicine
DX: M81.0 Age-related osteoporosis without current pathological fracture (principal)

== ENCOUNTER → 2025-02-17 11:16 | Outpatient (BNVA) | payer MEDICARE, SELFPAY | PROVIDERS: PCP Internal Medicine; Visit Provider Internal Medicine | DX: M81.0 Age-related osteoporosis without current pathological fracture (principal) | CPT/HCPCS: 96372; J0897 ==

== ENCOUNTER 2025-06-09 13:49 | Outpatient (AMB) | payer MEDICARE, SELFPAY ==
[2025-06-09 14:07] VITALS: BP 123/58; BMI 21.4
--- NOTE | 2025-06-09 14:07 | MHC.OFFVIS ---
Vital Signs 06/09/25 14:07 Height 5 ft 7 in Weight 136 lb 10.986 oz BMI 21.4 BP 123/58 L Blood Pressure Location Lt brachial Position Sitting Intake Visit Reasons: Follow up Intake Note: Philomena presents in the office as a follow up CC: Doing okay - routine follow up! Allergies diclofenac (From Voltaren) Allergy (Severe, Verified 02/17/25 11:34) Hives HPI HPI Follow up : Details: 74 yr old female here for f/u RECAP: index visit 10/24/19 She had burning sensation and pressure in chest since [place] after moving from [place] if talks or sings her voice starts to feel her voice husky not worse with exertion or food either she tried OTC omeprazole and didn;t help, tried changing diet no difference she has stress test coming up also tried flonase and anti histamine, no better she denied dysphagia appetite is normal weight is steady, minor loss of 8 pounds with moving denies diarrhea she does have hx of polyps and has had 6 or so colonoscopies, usu gets 3-5 yr (per note from last provider, next colonoscopy due 2019--polyp removed in 2014--5 mm adenoma) she cut down pantoprazole to OD and doing well TESTS: HGB: 11 g/dl (mild anemia) EGD 10/2019--bulbar duodenitis, gastritis, GEJ erythema bx with possible barretts, gastritis and intestinal metaplasia, mild villous blunting of dudoenum and foevolar metaplasia colonoscopy--04/2020--no polyps noted H pylori breath test 11/2019---negative EGD 11/2020--chronic inactive inflammation at GEJ, no barretts mentioned EGD 10/2022 for gastric mapping: ni intestinal metaplasia, chronic focal active inflammation of GEJ EGD 2022-- no IM, no barretts, mid inflammation, LES was lax, small hiatal hernia INTERIM: she is well, she is taking PPI daily, with Mv and vit D daily she is also taking benefiber which helps a lot no nausea or vomiting appetite is good mild constipation she has osteoporosis and getting shots EXAM: GENERAL: The patient is well developed and nontoxic. VITAL SIGNS:see workflow HEENT: Nonicteric sclerae, PERRLA, EOMI. Oropharynx clear. Moist mucous membranes. Conjunctivae appear well perfused. No thyroid mass. bruit left side of neck (followed by PCP) CHEST: Chest wall is nontender. HEART: Regular rate and rhythm with ESM aortic area LUNGS: Clear to auscultation bilaterally. ABDOMEN: Soft, positive bowel sounds, nontender, no organomegaly.no flank tenderness SKIN: No rash, no excessive bruising, petechiae, or purpura. NEUROLOGIC: Cranial nerves II-XII intact without motor/sensory deficit. MS: OA both hands Assessments 1. GERD- with chronic inflammation at GEJ, no clinical symptoms 3. Anemia with stable HGB--chronic PLAN: 1/ cont esomeprazole 20 mg, maybe repeat EGD in 1-2 yrs 2/ cont with Vit d, mag and MV supplements as doing, check labs today 3/ [facility] Aortic regurgitation Osteoporosis Cerumen impaction Skin nodule Vitamin D deficiency Hearing loss Trigger finger of right hand Tremor Osteoarthritis, hand Murmur Andrade's esophagus Seasonal allergies GERD (gastroesophageal reflux disease) Hx of mitral valve prolapse Hyponatremia Surgical History Hx of colonoscopy History of esophagogastroduodenoscopy (EGD) History of right hip replacement Family History Father CHF (congestive heart failure) HTN (hypertension) Mother Rectal bleeding Maternal Grandfather Colon cancer Daughter Mental health disorder Bipolar 1 disorder Brother Substance use disorder Alcoholic Social History Household Members: None Housing: Condominium Alcohol intake: former Patient Tobacco Use Status: Never used Tobacco e-Cigarette/Vaping Use: Never Used Second Hand Smoke Exposure: No service: No Current occupational status: retired 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 Code(s): D64.9 - Anemia, unspecified Category: Medical Plan: as above Orders: Orders Vitamin D 25-OH Total Today D64.9 - Anemia, unspecified, K21.9 - Gastro-esophageal reflux disease without esophagitis Vitamin B12 and Folate Today D64.9 - Anemia, unspecified, K21.9 - Gastro-esophageal reflux disease without esophagitis Magnesium Today D64.9 - Anemia, unspecified, K21.9 - Gastro-esophageal reflux disease without esophagitis Comprehensive Met. Panel Today D64.9 - Anemia, unspecified, K21.9 - Gastro-esophageal reflux disease without esophagitis, K75.81 - Nonalcoholic steatohepatitis (MARQUEZ) Complete Blood Count Auto Diff Today D64.9 - Anemia, unspecified, K21.9 - Gastro-esophageal reflux disease without esophagitis Ferritin Today D64.9 - Anemia, unspecified, K21.9 - Gastro-esophageal reflux disease without esophagitis Coding Level of Care Code Est Pt Level 3 (50490) Diagnoses GERD (gastroesophageal reflux disease) K21.9 Anemia D64.9
--- OUTSIDE RECORDS SUMMARY | 2025-06-09 14:37 | XMS_ITS | Patient Health Record ---
[facility] Address [address] [place] [address] Care Team Providers Care Medical Malpractice Paralegal Name Role Phone Idalmis Kyle MD Primary Care Provider Greg Martinez Unavailable [phone] Allergies Allergen (clinical drug ingredient) Drug/Non Drug [...] Status Risk Notes Problem Acquired hallux valgus (52324531) Hallux valgus (acquired), left foot (M20.12) Active confirmed Problem Acquired hallux valgus (74929503) Hallux valgus (acquired), right foot (M20.11) Active confirmed Problem Acquired hammer toe of right foot (6747124437609 105) Other hammer toe(s) (acquired), right foot (M20.41) Active confirmed Problem Acquired hammer toe of left foot (1646686282813 103) Other hammer toe(s) (acquired), left foot (M20.42) Active confirmed Plan Of Treatment Pending Test Test Name Order Date X ray : Foot, left 3V 02/20/2024 X ray : Foot, right 3V 02/20/2024 Insurance Providers Payer Name Payer Address Payer Phone Subscriber Number Group Number Insured Name Patient Relationship to Insured Coverage Start Date Coverage End Date [facility] Complete [address] [address] [place] [address] [id number] Philomena Gómez Self - patient is the insured Medical (General) History Medical History History ICD Code osteoarthritis Headaches/Migraines Hiatal hernia Osteoporosis Reflux ( GERD) Warts Measles Mumps Chicken pox Joint implants/screws Bone implants/screws Surgical History Surgery Date(Month/Year) cyst removal 07/2002 Bone Spurs 07/2002 inguinal hernia repair 03/2003 acl 08/1996 right hip replacement 10/2018 endoscopy 09/2023
== END 2025-06-09 14:36 | disposition home or self-care (01) ==
LOC: HO.HGI 13:50
PROVIDERS: PCP Internal Medicine; Visit Provider Internal Medicine Gastroenterology
DX: K21.9 Gastro-esophageal reflux disease without esophagitis (principal); D64.9 Anemia, unspecified
CPT/HCPCS: 99213

== ENCOUNTER → 2025-06-09 13:49 | Outpatient (BNVA) | payer MEDICARE, SELFPAY | PROVIDERS: PCP Internal Medicine; Visit Provider Internal Medicine Gastroenterology | DX: K21.9 Gastro-esophageal reflux disease without esophagitis (principal); D64.9 Anemia, unspecified | CPT/HCPCS: 99212 ==

== ENCOUNTER 2025-06-10 07:26 | Outpatient (REF) | payer MEDICARE, SELFPAY ==
[2025-06-10 10:36] LABS: MANUAL DIFF FLAG NO
[2025-06-10 10:39] LABS: Hematocrit 33.5 % (37.0-47.0); Hemoglobin 11.3 g/dl (12.0-16.0); Imm Gran Abs Auto 0.02 X10*3/uL (0.00-0.03); Imm Gran Pct Auto 0.3 % (0.0-0.4); Lymphocytes Absolute Auto 2.0 X10*3/uL (1.2-4.9); Mean Corpuscular HGB Conc 33.7 g/dl (31.0-35.0); Mean Corpuscular Hemoglobin 30.6 pg (27.0-33.0); Mean Corpuscular Volume 90.8 fL (80.0-98.0); NRBC Abs Auto 0.000 X10*3/uL (0.0-0.012); NRBC Pct Auto 0.0 /100WBC (0.0-0.2); Platelet Count 271 X10*3/uL (160-400); Red Blood Count 3.69 X10*6/uL (4.20-5.50); White Blood Count 6.6 X10*3/uL (4.8-10.8)
[2025-06-10 11:08] LABS: Alanine Aminotransferase 25 U/L (0-31); Albumin Level 4.3 g/dL (3.5-5.0); Alkaline Phosphatase 50 U/L (39-117); Anion Gap 10 (12-20); Aspartate Amino Transferase 22 U/L (5-31); Blood Urea Nitrogen 17 mg/dL (9-16); Calcium 8.6 mg/dL (8.4-10.2); Carbon Dioxide 26 mmol/L (22-29); Chloride 103 mmol/L (96-108); Estimated Glomerular Filt Rate > 60; Magnesium 1.9 mg/dL (1.6-2.6); Potassium 4.4 mmol/L (3.3-5.1); Sodium 135 mmol/L (135-145); Total Protein 7.0 g/dL (6.5-8.0)
[2025-06-10 11:28] LABS: Ferritin 25 ng/mL (10-250); Folate 13.5 ng/mL (> or = 4.0); Vitamin B12 785 pg/mL (200-900)
== END 2025-06-10 07:27 | disposition home or self-care (01) ==
LOC: HO.HMGCLDS 07:26
PROVIDERS: PCP Internal Medicine; Visit Provider Internal Medicine Gastroenterology
DX: K21.9 Gastro-esophageal reflux disease without esophagitis (principal); K75.81 Nonalcoholic steatohepatitis (NASH); D64.9 Anemia, unspecified
CPT/HCPCS: 36415; 80053; 82306; 82607; 82728; 82746; 83735; 85025

== ENCOUNTER 2025-08-20 09:51 | Outpatient (AMB) | payer MEDICARE, SELFPAY ==
--- NOTE | 2025-08-20 10:04 | AM.OFFVISNUR ---
Intake Visit Reasons: Prolia Shot Intake Note: Pt arrived for 6 month Prolia injection Allergies diclofenac (From Voltaren) Allergy (Severe, Verified 02/17/25 11:34) Hives Office Meds Prolia 60 mg/mL subcutaneous syringe Performing Provider: Idalmis Kyle MD Performing Location: [facility] Administered by: Denisha Eddy RN on 08/20/25 10:04 Dose Route Admin Location Dispensed Lot Number Expiration Date [facility] Personal Development Educator 60 mg subcut right upper arm 1 mL [id number] 01/18/28 92825-541-90 [employer] Total Dispensed Waste 1 mL 0 % Comments: Pt supplied Assessment & Plan Assessment & Plan Orders: Orders AMB Denosumab Injection Patient Supplied Today M81.0 - Age-related osteoporosis without current pathological fracture Coding
--- OUTSIDE RECORDS SUMMARY | 2025-08-20 10:52 | XMS_ITS | Patient Health Record ---
[facility] Address [address] [place] [address] Care Team Providers Care It Project Manager Name Role Phone Idalmis Kyle MD Primary Care Provider Greg Martinez Unavailable [phone] Allergies Allergen (clinical drug ingredient) Drug/Non Drug [...] Status Risk Notes Problem Acquired hallux valgus (38597116) Hallux valgus (acquired), left foot (M20.12) Active confirmed Problem Acquired hallux valgus (97033075) Hallux valgus (acquired), right foot (M20.11) Active confirmed Problem Acquired hammer toe of right foot (3143878820486 105) Other hammer toe(s) (acquired), right foot (M20.41) Active confirmed Problem Acquired hammer toe of left foot (6518522977870 103) Other hammer toe(s) (acquired), left foot (M20.42) Active confirmed Plan Of Treatment Pending Test Test Name Order Date X ray : Foot, left 3V 02/20/2024 X ray : Foot, right 3V 02/20/2024 Insurance Providers Payer Name Payer Address Payer Phone Subscriber Number Group Number Insured Name Patient Relationship to Insured Coverage Start Date Coverage End Date [employer] Medicare Complete [address] [address] [place] [address] [phone] [id number] Philomena Gómez Self - patient is the insured Medical (General) History Medical History History ICD Code osteoarthritis Headaches/Migraines Hiatal hernia Osteoporosis Reflux ( GERD) Warts Measles Mumps Chicken pox Joint implants/screws Bone implants/screws Surgical History Surgery Date(Month/Year) cyst removal 07/2002 Bone Spurs 07/2002 inguinal hernia repair 03/2003 acl 08/1996 right hip replacement 10/2018 endoscopy 09/2023
== END 2025-08-20 11:55 | disposition home or self-care (01) ==
LOC: HO.HMCC 09:52
PROVIDERS: PCP Internal Medicine; Visit Provider Internal Medicine
DX: M81.0 Age-related osteoporosis without current pathological fracture (principal)

== ENCOUNTER → 2025-08-20 09:51 | Outpatient (BNVA) | payer MEDICARE, SELFPAY | PROVIDERS: PCP Internal Medicine; Visit Provider Internal Medicine | DX: M81.0 Age-related osteoporosis without current pathological fracture (principal) | CPT/HCPCS: 96372; J0897 ==